=== PATIENT | male | born 1970 | race Caucasian/White ===

== ENCOUNTER → 2016-09-01 | Outpatient (REF) | payer OTHER ==
[~2016-09-01] MED LIST: /CELE20CA; /QUIN10TA OR; ACET500C OR; CARA1TAB2 PO; CARV12.5 PO; CIPR500T89 PO; COLA100C2; COLA100C2 OR; FELDENE OR; GABA300T OR; HYDR1CRE63 TOP; LIDEX TOP; NABU500T OR; NORCOTAB PO; PRIL20CA OR; PROCTOFOAM PR; PROP60TA OR; PROT1TAB2 PO; RANI15TA PO; TRAM50TA2 OR; TYLENOL ARTHRITIS; VICT18IN SC; ZANA2CAP PO; [UNRECOGNIZED DRUG - OTHER]; [UNRECOGNIZED DRUG - OTHER] TOP
== END ==
LOC: CANPREREF → M SFHCPLAZ 09:18
PROVIDERS: ATTEND Family Medicine
DX: Z53.8 Procedure and treatment not carried out for other reasons (principal); M45.9 Ankylosing spondylitis of unspecified sites in spine; E11.9 Type 2 diabetes mellitus without complications; E78.5 Hyperlipidemia, unspecified

== ENCOUNTER → 2016-10-15 | Outpatient (REF) | payer OTHER ==
[~2016-10-15] MED LIST changes: -CARA1TAB2 PO; +CARA1TAB6 PO; +CIPR-249 PO; -CIPR500T89 PO
[2016-10-15 12:15] LABS: CHOLESTEROL LEVEL 187 MG/DL (<200); TRIGLYCERIDES LEVEL 62 MG/DL (<150)
[2016-10-15 12:22] LABS: BASO % 0.4 % (0.0-1.0); EOS # 0.1 K/mm3 (0.0-0.50); EOS % 0.9 % (0.0-3.0); LARGE UNSTAINED CELL # 0.1 K/mm3 (0.0-0.4); LARGE UNSTAINED CELL % 1.7 % (0.0-4.0); LYMPH % 29.4 % (24.0-44.0); MEAN CORPUSCULAR HEMOGLOBIN 31.9 pg (27.0-33.0); MEAN CORPUSCULAR HGB CONC 35.5 g/dl (32.0-36.5); MEAN CORPUSCULAR VOLUME 89.9 fl (80.0-96.0); MONO # 0.3 K/mm3 (0.0-0.8); MONO % 3.7 % (0.0-5.0); NEUTROPHILS # 4.3 K/mm3 (1.8-7.7); NEUTROPHILS % 63.9 % (36.0-66.0); PLATELET COUNT, AUTOMATED 256 k/mm3 (150-450); RED CELL DISTRIBUTION WIDTH 12.3 % (11.5-14.5); WHITE BLOOD COUNT 6.7 K/mm3 (4.0-10.0)
[2016-10-15 13:15] LABS: ERYTHROCYTE SEDIMENTATION RATE 3 mm/hr (0-15)
== END ==
LOC: M LABDRAW1 10:51
PROVIDERS: ATTEND Family Medicine
DX: E78.5 Hyperlipidemia, unspecified (principal); E11.9 Type 2 diabetes mellitus without complications; M45.9 Ankylosing spondylitis of unspecified sites in spine

== ENCOUNTER → 2017-06-22 | Outpatient (REF) | payer OTHER ==
[2017-06-22 12:05] LABS: ALBUMIN 3.9 GM/DL (3.2-5.2); ALKALINE PHOSPHATASE 47 U/L (45-117); ALT/SGPT 46 U/L (12-78); ANION GAP 5 MEQ/L (8-16); AST/SGOT 15 U/L (7-37); BILIRUBIN,TOTAL 0.4 MG/DL (0.2-1.0); BLOOD UREA NITROGEN 12 MG/DL (7-18); C REACTIVE PROTEIN QUANTITATIV < 0.30 MG/DL (0.00-0.30); CALCIUM LEVEL 8.7 MG/DL (8.5-10.1); CARBON DIOXIDE LEVEL 31 MEQ/L (21-32); CHLORIDE LEVEL 106 MEQ/L (98-107); CHOLESTEROL LEVEL 157 MG/DL (<200); CHOLESTEROL RISK RATIO 3.829 (<5); CPK CREATINE PHOSPHOKINASE 79 U/L (39-308); CREATININE FOR GFR 0.77 MG/DL (0.70-1.30); FREE T4 1.05 NG/DL (0.76-1.46); GLOMERULAR FILTRATION RATE > 60.0 (>60); GLUCOSE, FASTING 106 MG/DL (70-100); HDL CHOLESTEROL 41 MG/DL (>40); LDL CHOLESTEROL 101.6 MG/DL (<100); NON-HDL-C 116 MG/DL; POTASSIUM SERUM 4.7 MEQ/L (3.5-5.1); SODIUM LEVEL 142 MEQ/L (136-145); THYROID STIMULATING HORMONE 0.985 uIU/ML (0.358-3.740); TOTAL PROTEIN 6.9 GM/DL (6.4-8.2); TRIGLYCERIDES LEVEL 72 MG/DL (<150)
[2017-06-22 12:21] LABS: TOTAL 25(OH) VITAMIN D 21.9 NG/ML (30.0-100.0)
[2017-06-22 12:22] LABS: PTH INTACT 28.9 PG/ML (18.5-88.0)
[2017-06-22 12:40] LABS: ESTIMATED AVERAGE GLUCOSE 97 MG/DL (60-110)
== END ==
LOC: M LABDRAW1 08:39
DX: E78.5 Hyperlipidemia, unspecified (principal); E11.9 Type 2 diabetes mellitus without complications; M45.9 Ankylosing spondylitis of unspecified sites in spine

== ENCOUNTER → 2017-09-15 | Outpatient (REF) | payer OTHER ==
[2017-09-15 13:06] LABS: TOTAL 25(OH) VITAMIN D 47.2 NG/ML (30.0-100.0)
== END ==
LOC: M LABDRAW1 12:35
DX: M45.9 Ankylosing spondylitis of unspecified sites in spine (principal)
CPT/HCPCS: 82306

== ENCOUNTER → 2018-02-22 | Outpatient (REF) | payer OTHER ==
[2018-02-22 13:27] LABS: APPEARANCE, URINE CLEAR (CLEAR); BACTERIA, URINE AUTO NEGATIVE (NEGATIVE); BILIRUBIN, URINE AUTO NEGATIVE (NEGATIVE); BLOOD, URINE BLOOD NEGATIVE (NEGATIVE); COLOR, URINE YELLOW (YELLOW); GLUCOSE, URINE (UA) AUTO NEGATIVE (NEGATIVE); KETONE, URINE AUTO NEGATIVE (NEGATIVE); LEUKOCYTE ESTERASE, URINE AUTO NEGATIVE (NEGATIVE); NITRITE, URINE AUTO NEGATIVE (NEGATIVE); PROTEIN, URINE AUTO NEGATIVE (NEGATIVE); RBC, URINE AUTO 0 /HPF (0-3); SQUAMOUS EPITHELIAL CELL UR AU 0 /HPF (0-6); UROBILINOGEN, URINE AUTO 0.2 mg/dL (0.0-2.0); WBC, URINE AUTO 0 /HPF (0-3)
[2018-02-22 13:30] LABS: BASO % 0.3 % (0.0-1.0); EOS # 0.1 10^3/uL (0.0-0.50); EOS % 1.4 % (0.0-3.0); HEMATOCRIT 42.8 % (42.0-52.0); HEMOGLOBIN 14.6 g/dl (13.5-17.5); IMMATURE GRANULOCYTE % 0.5 % (0-3.0); LYMPH # 1.9 10^3/uL (1.5-4.5); LYMPH % 30.3 % (24.0-44.0); MEAN CORPUSCULAR HEMOGLOBIN 31.1 pg (27.0-33.0); MEAN CORPUSCULAR HGB CONC 34.1 g/dl (32.0-36.5); MEAN CORPUSCULAR VOLUME 91.3 fl (80.0-96.0); MONO # 0.3 10^3/uL (0.0-0.8); MONO % 5.5 % (0.0-5.0); NEUTROPHILS # 3.9 10^3/uL (1.8-7.7); PLATELET COUNT, AUTOMATED 237 10^3/uL (150-450); RED BLOOD COUNT 4.69 10^6/uL (4.30-6.10); RED CELL DISTRIBUTION WIDTH 12.3 % (11.5-14.5); WHITE BLOOD COUNT 6.2 10^3/uL (4.0-10.0)
[2018-02-22 13:50] LABS: ERYTHROCYTE SEDIMENTATION RATE 3 mm/hr (0-15)
[2018-02-22 13:56] LABS: ALBUMIN 3.6 GM/DL (3.2-5.2); ALBUMIN/GLOBULIN RATIO 1.29 (1.00-1.93); ALKALINE PHOSPHATASE 45 U/L (45-117); ALT/SGPT 73 U/L (12-78); ANION GAP 4 MEQ/L (8-16); AST/SGOT 30 U/L (7-37); BILIRUBIN,TOTAL 0.5 MG/DL (0.2-1.0); BLOOD UREA NITROGEN 11 MG/DL (7-18); C REACTIVE PROTEIN QUANTITATIV < 0.30 MG/DL (0.00-0.30); CALCIUM LEVEL 8.2 MG/DL (8.5-10.1); CARBON DIOXIDE LEVEL 31 MEQ/L (21-32); CHLORIDE LEVEL 109 MEQ/L (98-107); CREATININE FOR GFR 0.76 MG/DL (0.70-1.30); GLOMERULAR FILTRATION RATE > 60.0 (>60); GLUCOSE, FASTING 98 MG/DL (70-100); MAGNESIUM LEVEL 2.2 MG/DL (1.8-2.4); POTASSIUM SERUM 4.5 MEQ/L (3.5-5.1); SODIUM LEVEL 144 MEQ/L (136-145); TOTAL PROTEIN 6.4 GM/DL (6.4-8.2)
[2018-02-22 14:44] LABS: MAU/CREAT RATIO 4.7 MCG/MG (0.0-30.0)
[2018-02-22 17:55] LABS: ESTIMATED AVERAGE GLUCOSE 105 MG/DL (60-110); HEMOGLOBIN A1c 5.3 %
[2018-02-23 10:57] LABS: H PYLORI SERUM QUANT IgG ABY 0.37 (0.00-0.79)
[2018-02-26 00:07] LABS: QuantiFERON-TB Gold Plus Negative (Negative)
== END ==
LOC: M LABDRAW1 12:03
DX: E11.9 Type 2 diabetes mellitus without complications (principal); M45.9 Ankylosing spondylitis of unspecified sites in spine; I10 Essential (primary) hypertension; K27.9 Peptic ulcer, site unspecified, unspecified as acute or chronic, without hemorrhage or perforation

== ENCOUNTER → 2018-09-06 | Outpatient (REF) | payer OTHER ==
[~2018-09-06] MED LIST changes: -/CELE20CA; -/QUIN10TA OR; +ACCU1TAB OR; +CELE1CAP4; +HYDR-3715 PO; -NORCOTAB PO
[2018-09-06 13:13] LABS: BASO # 0.1 10^3/uL (0.0-0.2); BASO % 0.6 % (0.0-1.0); EOS # 0.3 10^3/uL (0.0-0.50); EOS % 2.5 % (0.0-3.0); HEMATOCRIT 45.6 % (42.0-52.0); HEMOGLOBIN 15.2 g/dl (13.5-17.5); LYMPH # 1.9 10^3/uL (1.5-4.5); LYMPH % 18.7 % (24.0-44.0); MEAN CORPUSCULAR HEMOGLOBIN 31.1 pg (27.0-33.0); MEAN CORPUSCULAR HGB CONC 33.3 g/dl (32.0-36.5); MEAN CORPUSCULAR VOLUME 93.4 fl (80.0-96.0); MONO # 0.8 10^3/uL (0.0-0.8); MONO % 7.6 % (0.0-5.0); NEUTROPHILS # 6.9 10^3/uL (1.8-7.7); NEUTROPHILS % 70.2 % (36.0-66.0); PLATELET COUNT, AUTOMATED 231 10^3/uL (150-450); RED BLOOD COUNT 4.88 10^6/uL (4.30-6.10); WHITE BLOOD COUNT 9.9 10^3/uL (4.0-10.0)
[2018-09-06 14:15] LABS: ERYTHROCYTE SEDIMENTATION RATE 15 mm/hr (0-15)
[2018-09-06 16:31] LABS: HEMOGLOBIN A1c 5.6 %
[2018-09-06 16:49] LABS: ALT/SGPT 110 U/L (12-78); BILIRUBIN,TOTAL 0.5 MG/DL (0.2-1.0); BLOOD UREA NITROGEN 13 MG/DL (7-18); C REACTIVE PROTEIN QUANTITATIV 2.33 MG/DL (0.00-0.30); CARBON DIOXIDE LEVEL 27 MEQ/L (21-32); CHLORIDE LEVEL 108 MEQ/L (98-107); CHOLESTEROL LEVEL 160 MG/DL (<200); CREATININE FOR GFR 0.81 MG/DL (0.70-1.30); GLOMERULAR FILTRATION RATE > 60.0 (>60); GLUCOSE, FASTING 112 MG/DL (70-100); HDL CHOLESTEROL 38 MG/DL (>40); LDL CHOLESTEROL 100 MG/DL (<100); NON-HDL-C 122 MG/DL; POTASSIUM SERUM 4.8 MEQ/L (3.5-5.1); SODIUM LEVEL 143 MEQ/L (136-145); TOTAL 25(OH) VITAMIN D 16.8 NG/ML (30.0-100.0); TOTAL PROTEIN 7.2 GM/DL (6.4-8.2); TRIGLYCERIDES LEVEL 108 MG/DL (<150)
== END ==
LOC: M LABDRAW1 11:47
PROVIDERS: ATTEND Family Medicine
DX: E78.5 Hyperlipidemia, unspecified (principal); M45.9 Ankylosing spondylitis of unspecified sites in spine; E55.9 Vitamin D deficiency, unspecified

== ENCOUNTER → 2018-10-13 | Outpatient (CLI) | payer BC, OTHER ==
--- NOTE | 2018-10-13 07:39 | REP ---
Clinical: Hepatic steatosis. Technique: Real time kilgore scale ultrasound examination using curved array transducer. Findings: The liver is diffusely increased echogenicity with decreased through transmission suggesting fatty infiltration. No focal hepatic lesion identified. The pancreas is incompletely evaluated due to interposed bowel gas but visualized portions appear normal. The gallbladder is absent and consistent with a history of cholecystectomy. No biliary ductal dilatation is appreciated and the common bile duct measures 6.1 mm diameter. The right kidney is normal in reniform shape without hydronephrosis, nephrolithiasis, cystic or renal mass lesion and measures 11.4 x 6.0 x 5.8 cm. No ascites. Impression: 1. Hepatic steatosis without focal hepatic lesion identified. 2. Evidence of prior cholecystectomy. Electronically Signed by Ervin Crowley MD 10/13/2018 07:30 A
== END ==
LOC: M RAD 05:57
PROVIDERS: ATTEND Family Medicine
DX: K76.0 Fatty (change of) liver, not elsewhere classified (principal)

== ENCOUNTER → 2019-05-16 | Outpatient (CLI) | payer BC, OTHER ==
[2019-05-16 20:22] LABS: BASO % 0.5 % (0.0-1.0); EOS # 0.2 10^3/uL (0.0-0.5); EOS % 2.2 % (0.0-3.0); HEMATOCRIT 45.3 % (42.0-52.0); HEMOGLOBIN 15.2 g/dl (13.5-17.5); LYMPH # 2.7 10^3/uL (1.5-5.0); LYMPH % 33.9 % (24.0-44.0); MEAN CORPUSCULAR HEMOGLOBIN 30.5 pg (27.0-33.0); MEAN CORPUSCULAR HGB CONC 33.6 g/dl (32.0-36.5); MEAN CORPUSCULAR VOLUME 90.8 fl (80.0-96.0); MONO # 0.6 10^3/uL (0.0-0.8); MONO % 6.9 % (0.0-5.0); NEUTROPHILS # 4.5 10^3/uL (1.5-8.5); NEUTROPHILS % 56.3 % (36.0-66.0); PLATELET COUNT, AUTOMATED 263 10^3/uL (150-450); RED BLOOD COUNT 4.99 10^6/uL (4.30-6.10)
[2019-05-16 20:34] LABS: INR 1.1; PROTHROMBIN TIME 13.9 SECONDS (11.8-14.0)
[2019-05-16 20:37] LABS: C REACTIVE PROTEIN QUANTITATIV < 0.30 MG/DL (0.00-0.30); CHOLESTEROL LEVEL 158 MG/DL (<200); CHOLESTEROL RISK RATIO 4.787 (<5); FREE T4 1.12 NG/DL (0.76-1.46); HDL CHOLESTEROL 33 MG/DL (>40); LDL CHOLESTEROL 103 MG/DL (<100); NON-HDL-C 125 MG/DL; TRIGLYCERIDES LEVEL 110 MG/DL (<150)
[2019-05-16 20:47] LABS: CREATININE,RANDOM URINE 72.7 MG/DL; HEMOGLOBIN A1c 5.7 %; TOTAL PROTEIN,RANDOM URINE 8.4 MG/DL (0.0-12.0)
[2019-05-16 20:54] LABS: ERYTHROCYTE SEDIMENTATION RATE 6 mm/hr (0-15)
== END ==
LOC: M WUC 15:45
PROVIDERS: ATTEND Family Medicine
DX: E11.9 Type 2 diabetes mellitus without complications (principal); M45.9 Ankylosing spondylitis of unspecified sites in spine; K76.0 Fatty (change of) liver, not elsewhere classified

== ENCOUNTER → 2019-07-21 | Outpatient (REF) | payer BC, OTHER ==
[2019-07-21 15:50] LABS: BASO # 0.1 10^3/uL (0.0-0.2); BASO % 0.6 % (0.0-1.0); EOS # 0.2 10^3/uL (0.0-0.5); EOS % 1.7 % (0.0-3.0); HEMATOCRIT 43.9 % (42.0-52.0); HEMOGLOBIN 15.3 g/dl (13.5-17.5); LYMPH # 2.2 10^3/uL (1.5-5.0); LYMPH % 24.1 % (24.0-44.0); MEAN CORPUSCULAR HEMOGLOBIN 31.8 pg (27.0-33.0); MEAN CORPUSCULAR HGB CONC 34.9 g/dl (32.0-36.5); MEAN CORPUSCULAR VOLUME 91.3 fl (80.0-96.0); MONO # 0.5 10^3/uL (0.0-0.8); MONO % 5.7 % (0.0-5.0); NEUTROPHILS # 6.1 10^3/uL (1.5-8.5); NEUTROPHILS % 67.5 % (36.0-66.0); PLATELET COUNT, AUTOMATED 274 10^3/uL (150-450); RED BLOOD COUNT 4.81 10^6/uL (4.30-6.10)
[2019-07-21 16:39] LABS: ERYTHROCYTE SEDIMENTATION RATE 5 mm/hr (0-15)
== END ==
LOC: M LABDRAW1 13:37
PROVIDERS: ATTEND Family Medicine
DX: M45.9 Ankylosing spondylitis of unspecified sites in spine (principal)

== ENCOUNTER → 2020-02-11 | Outpatient (CLI) | payer BC, OTHER ==
[~2020-02-11] MED LIST changes: +COSE1INJ3; +LATA0.0015; +METF750T36 PO; +QUIN10TA32; +TRUL0.5I
== END ==
LOC: M LABSMTC 08:19
PROVIDERS: ATTEND Anesthesiology
DX: Z01.812 Encounter for preprocedural laboratory examination (principal); Z20.828 Contact with and (suspected) exposure to other viral communicable diseases
CPT/HCPCS: C9803; U0003

== ENCOUNTER 2020-02-16 10:22 | Day surgery (SDC) | payer BC, OTHER ==
[~2020-02-16] VITALS: Ht 177.8 cm; Wt 93.0 kg
[~2020-02-16 10:22] MED LIST changes: +POVIDONE-IODINE 5% OPHTH PREP SOL 30ML As Ordered ONE
[2020-02-16] MEDS ORDERED: PROPARACAINE 0.5% OPHTH SOL 15ML As Ordered ONE (11:50)
[2020-02-16] MEDS ORDERED: MIDAZOLAM INJ 2MG/2ML VIAL (J2250 PER 1MG) As Ordered ONE (12:11)
[2020-02-16] MEDS ORDERED: fentaNYL 100 MCG/2 ML INJECTION (J3010) As Ordered ONE (12:11)
[2020-02-16 13:15] VITALS: BP 30/77
== END 2020-02-16 13:21 | disposition home or self-care (01) ==
LOC: M SDC 10:22
PROVIDERS: ATTEND Ophthalmology
DX: H17.11 Central corneal opacity, right eye (principal); I10 Essential (primary) hypertension; K21.9 Gastro-esophageal reflux disease without esophagitis; Z79.899 Other long term (current) drug therapy; R73.03 Prediabetes; Z79.84 Long term (current) use of oral hypoglycemic drugs
CPT/HCPCS: 65435; J2250; J3010

== ENCOUNTER → 2020-03-09 | Outpatient (REF) | payer OTHER ==
[~2020-03-09] MED LIST changes: -POVIDONE-IODINE 5% OPHTH PREP SOL 30ML As Ordered ONE
[2020-03-09 14:22] LABS: HEMOGLOBIN A1c 5.6 %
[2020-03-09 14:34] LABS: ALBUMIN 4.1 GM/DL (3.2-5.2); ALT/SGPT 57 U/L (12-78); BILIRUBIN,TOTAL 0.4 MG/DL (0.2-1.0); BLOOD UREA NITROGEN 13 MG/DL (7-18); CALCIUM LEVEL 9.3 MG/DL (8.5-10.1); CARBON DIOXIDE LEVEL 30 MEQ/L (21-32); CHLORIDE LEVEL 107 MEQ/L (98-107); CHOLESTEROL LEVEL 177 MG/DL (<200); CHOLESTEROL RISK RATIO 4.317 (<5); GLOMERULAR FILTRATION RATE > 60.0 (>60); GLUCOSE, FASTING 108 MG/DL (70-100); HDL CHOLESTEROL 41 MG/DL (>40); LDL CHOLESTEROL 109 MG/DL (<100); MAGNESIUM LEVEL 2.3 MG/DL (1.8-2.4); NON-HDL-C 136 MG/DL; POTASSIUM SERUM 4.4 MEQ/L (3.5-5.1); SODIUM LEVEL 141 MEQ/L (136-145); TOTAL PROTEIN 7.4 GM/DL (6.4-8.2); TRIGLYCERIDES LEVEL 135 MG/DL (<150)
[2020-03-09 14:41] LABS: PTH INTACT 22.1 PG/ML (18.5-88.0); TOTAL 25(OH) VITAMIN D 27.7 NG/ML (30.0-100.0)
[2020-03-09 14:44] LABS: CREATININE, URINE 55.7 MG/DL; MALB URINE SIEMENS < 5.0 MG/L; MAU/CREAT RATIO 8.9 MCG/MG (0.0-30.0)
[2020-03-09 14:52] LABS: HEPATITIS B SURFACE ANTIGEN NEGATIVE (NEGATIVE)
[2020-03-09 15:20] LABS: HEPATITIS C VIRUS ABY INDEX < 0.0 INDEX (<0.8)
== END ==
LOC: M SFHCPLAZ 09:54
PROVIDERS: ATTEND Nurse Practitioner Family
DX: E11.9 Type 2 diabetes mellitus without complications (principal); M45.9 Ankylosing spondylitis of unspecified sites in spine; E78.5 Hyperlipidemia, unspecified; I10 Essential (primary) hypertension; E55.9 Vitamin D deficiency, unspecified

== ENCOUNTER → 2020-05-31 | Outpatient (CLI) | payer OTHER ==
[~2020-05-31] MED LIST changes: +ISOVUE-300 61% 50ML VIAL As Ordered ONE; +LIDOCAINE 1% MDV 20ML VIAL As Ordered ONE; +TRIAMCINOLONE ACETONIDE SUSP 40 MG/ML VIAL (J3301) As Ordered ONE
--- NOTE | 2020-05-31 16:51 | REP ---
INDICATION: IMPINGEMENT SYNDROME RIGHT SHOULDER. COMPARISON: None TECHNIQUE: The procedure was performed by Rosy Cardoza [facility], under the direct supervision of Dr. Carr. The benefits and risks of the procedure were explained to the patient, and an informed consent was obtained. Directly prior to the start of the procedure, a formal time-out was completed in the procedure room. The right glenohumeral joint space was localized using fluoroscopic guidance. The skin was prepped and draped in a sterile fashion. Approximately 5 mL of 1% Lidocaine 10 mg/ml was used as a local anesthetic. Using fluoroscopic guidance, a #22 gauge spinal needle was inserted and advanced into the right glenohumeral joint space. Approximately 1 mL of Isovue 300 was injected to verify placement. Six mL of a solution containing 5 mL 1% lidocaine 10 mg/ml and 1 mL Kenalog 40 milligrams/milliliter was injected into the joint space. The needle was removed and hemostasis was achieved. FINDINGS: The patient tolerated the procedure well and there were no immediate complications. IMPRESSION: 1. Right shoulder inter articular pain injection under fluoroscopic guidance. 0.1 minutes of fluoroscopy time was utilized for this procedure. Some fluoroscopic images are performed with last image hold technology. These images require no additional radiation. <Electronically signed by Rosy Cardoza > 05/31/20 0094 <Electronically signed by Bill Carr > 05/31/20 [id number]
== END ==
LOC: M RADPRO 13:32
PROVIDERS: ATTEND Physician Assistant
DX: M75.41 Impingement syndrome of right shoulder (principal)
CPT/HCPCS: 20610; 77002; J3301; Q9967

== ENCOUNTER → 2020-07-16 | Outpatient (REF) | payer OTHER ==
[~2020-07-16] MED LIST changes: -ISOVUE-300 61% 50ML VIAL As Ordered ONE; -LIDOCAINE 1% MDV 20ML VIAL As Ordered ONE; -TRIAMCINOLONE ACETONIDE SUSP 40 MG/ML VIAL (J3301) As Ordered ONE
[2020-07-16 11:05] LABS: BASO % 0.3 % (0.0-1.0); EOS # 0.1 10^3/uL (0.0-0.5); EOS % 1.1 % (0.0-3.0); HEMATOCRIT 43.2 % (42.0-52.0); HEMOGLOBIN 14.9 g/dl (13.5-17.5); LYMPH # 2.3 10^3/uL (1.5-5.0); LYMPH % 26.5 % (24.0-44.0); MEAN CORPUSCULAR HEMOGLOBIN 31.6 pg (27.0-33.0); MEAN CORPUSCULAR HGB CONC 34.5 g/dl (32.0-36.5); MEAN CORPUSCULAR VOLUME 91.7 fl (80.0-96.0); MONO # 0.5 10^3/uL (0.0-0.8); MONO % 5.7 % (2.0-8.0); NEUTROPHILS # 5.8 10^3/uL (1.5-8.5); NEUTROPHILS % 65.9 % (36.0-66.0); PLATELET COUNT, AUTOMATED 253 10^3/uL (150-450); RED BLOOD COUNT 4.71 10^6/uL (4.30-6.10); WHITE BLOOD COUNT 8.8 10^3/uL (4.0-10.0)
[2020-07-16 11:24] LABS: ERYTHROCYTE SEDIMENTATION RATE 8 mm/hr (0-20)
[2020-07-16 11:26] LABS: HEMOGLOBIN A1c 5.8 %
[2020-07-16 11:31] LABS: ALT/SGPT 77 U/L (12-78); BILIRUBIN,TOTAL 0.4 MG/DL (0.2-1.0); BLOOD UREA NITROGEN 19 MG/DL (7-18); CALCIUM LEVEL 8.8 MG/DL (8.5-10.1); CARBON DIOXIDE LEVEL 30 MEQ/L (21-32); CHLORIDE LEVEL 108 MEQ/L (98-107); CREATININE FOR GFR 0.74 MG/DL (0.70-1.30); GLOMERULAR FILTRATION RATE > 60.0 (>56); GLUCOSE, FASTING 113 MG/DL (70-100); POTASSIUM SERUM 4.7 MEQ/L (3.5-5.1); SODIUM LEVEL 141 MEQ/L (136-145); TOTAL PROTEIN 7.1 GM/DL (6.4-8.2)
== END ==
LOC: M SFHCPLAZ 08:58
PROVIDERS: ATTEND Family Medicine
DX: M45.9 Ankylosing spondylitis of unspecified sites in spine (principal); E11.9 Type 2 diabetes mellitus without complications; K76.0 Fatty (change of) liver, not elsewhere classified; Z12.5 Encounter for screening for malignant neoplasm of prostate
CPT/HCPCS: 36415; 80053; 82172; 83010; 83036; 83883; 85025; 85652; 86140; 86480; G0103

== ENCOUNTER → 2020-08-06 | Outpatient (CLI) | payer OTHER ==
--- NOTE | 2020-08-07 20:24 | ECGEPIP ---
[facility] Test Date: 2020-08-06 Pat Name: JESSI COLEY Department: Room: - Gender: Male Press Tender: petr : 1970 Requested By: Donald Lindsey Order Number: [id number] Reading MD: Jay Oliva Measurements Intervals [place] Rate: 76 P: 32 WA: 146 QRS: 40 QRSD: 86 T: 64 QT: 392 QTc: 441 Interpretive Statements Normal sinus rhythm Inferior infarct , age undetermined, CANNOT R/O NO PRIOR Electronically Signed on 08-07-2020 20:23:52 EDT by Jay Oliva
== END ==
LOC: M EKG 09:08
PROVIDERS: ATTEND Orthopaedic Surgery
DX: Z01.810 Encounter for preprocedural cardiovascular examination (principal)

== ENCOUNTER → 2020-09-03 | Outpatient (REF) | payer OTHER ==
[2020-09-03 15:40] LABS: BASO % 0.3 % (0.0-1.0); EOS # 0.1 10^3/uL (0.0-0.5); HEMATOCRIT 48.6 % (42.0-52.0); HEMOGLOBIN 16.3 g/dl (13.5-17.5); LYMPH # 2.3 10^3/uL (1.5-5.0); LYMPH % 24.2 % (24.0-44.0); MEAN CORPUSCULAR HEMOGLOBIN 30.9 pg (27.0-33.0); MEAN CORPUSCULAR HGB CONC 33.5 g/dl (32.0-36.5); MEAN CORPUSCULAR VOLUME 92.2 fl (80.0-96.0); MONO # 0.5 10^3/uL (0.0-0.8); MONO % 5.3 % (2.0-8.0); NEUTROPHILS # 6.6 10^3/uL (1.5-8.5); NEUTROPHILS % 68.8 % (36.0-66.0); PLATELET COUNT, AUTOMATED 336 10^3/uL (150-450); RED BLOOD COUNT 5.27 10^6/uL (4.30-6.10); WHITE BLOOD COUNT 9.6 10^3/uL (4.0-10.0)
[2020-09-03 16:03] LABS: ALBUMIN 4.3 GM/DL (3.2-5.2); ALT/SGPT 44 U/L (12-78); BILIRUBIN,TOTAL 0.8 MG/DL (0.2-1.0); BLOOD UREA NITROGEN 15 MG/DL (7-18); CALCIUM LEVEL 9.4 MG/DL (8.5-10.1); CARBON DIOXIDE LEVEL 32 MEQ/L (21-32); CHLORIDE LEVEL 105 MEQ/L (98-107); CREATININE FOR GFR 0.81 MG/DL (0.70-1.30); GLOMERULAR FILTRATION RATE > 60.0 (>56); GLUCOSE, FASTING 109 MG/DL (70-100); LIPASE 107 U/L (73-393); POTASSIUM SERUM 4.4 MEQ/L (3.5-5.1); SODIUM LEVEL 140 MEQ/L (136-145); TOTAL PROTEIN 7.5 GM/DL (6.4-8.2)
== END ==
LOC: M SFHCPLAZ 12:42
PROVIDERS: ATTEND Physician Assistant
DX: R10.13 Epigastric pain (principal); K27.9 Peptic ulcer, site unspecified, unspecified as acute or chronic, without hemorrhage or perforation; K58.9 Irritable bowel syndrome, unspecified

== ENCOUNTER → 2020-10-10 | Outpatient (CLI) | payer BC, OTHER ==
[~2020-10-10] MED LIST changes: +E-Z-GAS II EFFERVESCENT PACKET (SODIUM BICARB./CITRIC ACID/SIMETHICONE) As Ordered ONE; +E-Z-HD 98% w/w 340GM SUSP BTL As Ordered ONE; +E-Z-PAQUE 96% w/w SUSP 176GM BTL As Ordered ONE; +[UNRECOGNIZED DRUG - CODE] TOP; -[UNRECOGNIZED DRUG - OTHER] TOP
--- NOTE | 2020-10-10 16:46 | REP ---
INDICATION: EPIGASTRIC PAIN. COMPARISON: None TECHNIQUE: This procedure was performed by Rosy Cardoza [facility], under the direct supervision of Dr. Mena. Images were reviewed with Dr. Mena prior to dictation. Liquid barium and gas producing crystals were given in the erect position, as well as liquid barium in the prone oblique position in order to perform a double contrast upper GI examination. Additionally liquid barium was given at the end of the examination in order to perform a small-bowel follow-through. 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 The intestinal gas pattern is unremarkable. The oral and pharyngeal stages of deglutition were unremarkable. Esophageal transport is prompt and efficient and there is no evidence of esophagitis, stricture, or mucosal ring. There is evidence of a small hiatal hernia. There was no gastroesophageal reflux noted . The stomach guallpa are normally outlined. The rugal folds are smooth and regular. There is no gastritis, neoplasm, or ulcerative disease. The duodenal guallpa are normally outlined. The mucosal folds are smooth and regular. There is no duodenitis, peptic ulcer disease or neoplasm. The visualized portion of the proximal small bowel appears normal in course and caliber. There are 2 diverticula of the descending duodenal. The barium column was followed through the small bowel to the level of the terminal ileum. Small bowel transit time is approximately 20 minutes. During fluoroscopy gentle palpation shows all loops are freely movable and pliable. There is no fixed angulated loops. The small bowel mucosal pattern is normal in course and caliber. There is no transition to suggest a partial small bowel obstruction. Spot filming of the terminal ileum shows it to be unremarkable. The appendix is visualized. IMPRESSION: 1. Small hiatal hernia. 2. Two diverticula of the descending duodenum. 3. Small bowel transit time of 20 minutes. 1.1 minutes of fluoroscopy time was utilized for this procedure. Some fluoroscopic images are performed with last image hold technology. These images require no additional radiation. <Electronically signed by Rosy Cardoza > 10/10/20 1630 <Electronically signed by Kobi Mena > 10/10/20 1646
== END ==
LOC: M RAD 08:06
PROVIDERS: ATTEND Physician Assistant
DX: K44.9 Diaphragmatic hernia without obstruction or gangrene (principal); K57.30 Diverticulosis of large intestine without perforation or abscess without bleeding; R10.13 Epigastric pain

== ENCOUNTER → 2021-01-01 | Outpatient (CLI) | payer BC, OTHER ==
[~2021-01-01] MED LIST changes: -E-Z-GAS II EFFERVESCENT PACKET (SODIUM BICARB./CITRIC ACID/SIMETHICONE) As Ordered ONE; -E-Z-HD 98% w/w 340GM SUSP BTL As Ordered ONE; -E-Z-PAQUE 96% w/w SUSP 176GM BTL As Ordered ONE
[2021-01-01 18:00] LABS: FREE T4 1.14 NG/DL (0.76-1.46); THYROID STIMULATING HORMONE 0.95 uIU/ML (0.358-3.740)
== END ==
LOC: M LAB 16:19
PROVIDERS: ATTEND Physician Assistant Medical
DX: R19.8 Other specified symptoms and signs involving the digestive system and abdomen (principal)

== ENCOUNTER → 2021-01-03 | Outpatient (REF) | payer BC, OTHER | LOC: M LAB REF 09:56 | PROVIDERS: ATTEND Physician Assistant Medical | DX: R19.8 Other specified symptoms and signs involving the digestive system and abdomen (principal) ==

== ENCOUNTER → 2021-01-15 | Outpatient (CLI) | payer BC, OTHER ==
[2021-01-15 15:23] LABS: BASO % 0.4 % (0.0-1.0); EOS # 0.1 10^3/uL (0.0-0.5); EOS % 1.2 % (0.0-3.0); HEMATOCRIT 45.5 % (42.0-52.0); HEMOGLOBIN 15.8 g/dl (13.5-17.5); LYMPH # 2.4 10^3/uL (1.5-5.0); LYMPH % 29.4 % (24.0-44.0); MEAN CORPUSCULAR HEMOGLOBIN 31.3 pg (27.0-33.0); MEAN CORPUSCULAR HGB CONC 34.7 g/dl (32.0-36.5); MEAN CORPUSCULAR VOLUME 90.1 fl (80.0-96.0); MONO # 0.7 10^3/uL (0.0-0.8); MONO % 7.8 % (2.0-8.0); NEUTROPHILS # 5.1 10^3/uL (1.5-8.5); NEUTROPHILS % 60.7 % (36.0-66.0); PLATELET COUNT, AUTOMATED 251 10^3/uL (150-450); RED BLOOD COUNT 5.05 10^6/uL (4.30-6.10); WHITE BLOOD COUNT 8.3 10^3/uL (4.0-10.0)
[2021-01-15 15:28] LABS: HEMOGLOBIN A1c 6.4 %
[2021-01-15 15:45] LABS: ERYTHROCYTE SEDIMENTATION RATE 5 mm/hr (0-20)
[2021-01-15 15:48] LABS: ALBUMIN 4.1 GM/DL (3.2-5.2); ALT/SGPT 71 U/L (12-78); BILIRUBIN,TOTAL 0.6 MG/DL (0.2-1.0); BLOOD UREA NITROGEN 10 MG/DL (7-18); CALCIUM LEVEL 9.3 MG/DL (8.5-10.1); CARBON DIOXIDE LEVEL 30 MEQ/L (21-32); CHLORIDE LEVEL 105 MEQ/L (98-107); CHOLESTEROL LEVEL 198 MG/DL (<200); CREATININE FOR GFR 0.93 MG/DL (0.70-1.30); FERRITIN 100 NG/ML (26-388); GLOMERULAR FILTRATION RATE > 60.0 (>56); GLUCOSE, FASTING 110 MG/DL (70-100); HDL CHOLESTEROL 45 MG/DL (>40); LDL CHOLESTEROL 123 MG/DL (<100); NON-HDL-C 153 MG/DL; POTASSIUM SERUM 4.7 MEQ/L (3.5-5.1); SODIUM LEVEL 144 MEQ/L (136-145); TOTAL PROTEIN 7.4 GM/DL (6.4-8.2); TRIGLYCERIDES LEVEL 149 MG/DL (<150)
[2021-01-15 15:53] LABS: PTH INTACT 37.7 PG/ML (18.5-88.0); TOTAL 25(OH) VITAMIN D 27.3 NG/ML (30.0-100.0)
== END ==
LOC: M PLALAB 13:42
PROVIDERS: ATTEND Family Medicine
DX: E11.9 Type 2 diabetes mellitus without complications (principal)

== ENCOUNTER → 2021-02-13 | Outpatient (CLI) | payer BC, OTHER ==
--- NOTE | 2021-02-13 16:29 | REP ---
INDICATION: PAIN. COMPARISON: None. TECHNIQUE: Four views. FINDINGS: There are multiple smoothly marginated well corticated ossific densities distal to the ulnar styloid process consistent with chronic changes of the wrist. There is no evidence of an acute osseous abnormality seen involving the hand. The joint spaces are symmetric and relatively well maintained. There is no fracture or destructive osseous lesion. IMPRESSION: As above <Electronically signed by Khari Miguel > 02/13/21 0775
== END ==
LOC: M WUC 15:32
PROVIDERS: ATTEND Physician Assistant
DX: M79.641 Pain in right hand (principal)

== ENCOUNTER → 2021-02-25 | Outpatient (CLI) | payer BC, OTHER ==
[~2021-02-25] MED LIST changes: +CELE1CAP9 PO; +COSE1INJ SC; +ERGO500029 PO; -LATA0.0015; +LATA0.0015 OU; -QUIN10TA32; +QUIN10TA32 PO; +XALA0.007 OU
== END ==
LOC: M LABSMTC 09:39
PROVIDERS: ATTEND Anesthesiology
DX: Z01.812 Encounter for preprocedural laboratory examination (principal); Z20.822 Contact with and (suspected) exposure to COVID-19

== ENCOUNTER 2021-03-01 07:39 | Day surgery (SDC) | payer BC, OTHER ==
[~2021-03-01] VITALS: Ht 175.3 cm; Wt 96.8 kg
[~2021-03-01 07:39] MED LIST changes: +NS 1,000 ML IV ONE
--- OUTSIDE RECORDS SUMMARY | 2021-03-01 07:43 | CCD ---
Continuity of Care Document (CCD) Created on: 02/25/2021 Bill Heredia External Reference #: [id number] : 1970 Sex: Male Author Author Bill NOBLE P.A. 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 Pin Name Role Phone Raymond Du MD AUTM [phone] Raymond Du MD AUTM [phone] Problems Description No Information Available Social History Type Date Description Comments Sex Unknown ETOH Use Occasionally consumes alcohol Tobacco Use Start: Unknown End: Unknown Patient is a former smoker Smoking Status Reviewed: 06/19/20 Patient is a former smoker Allergies and adverse reactions Description No Known Drug Allergies Medications Active Medications SIG Qnty Indications Ordering Provide r Date Tylenol With Codeine #3 300-30mg T ablets 1-2 tabs po every 4-6 hours as needed pain after surgery(Please DO Not Fill Until 08/28/2020) 30tabs Donald Lindsey MD 08/28/2020 Metformin HCL 500mg Tablets take one tablet by mouth twice a day Unknown Carvedilol 12.5mg Tablets 1 by mouth twice a day Unknown Protonix 40mg Tablets DR 1 by mouth every day Unknown Accupril 10mg Tablets Unknown Tizanidine HCL 2mg Capsules 1 by mouth three times a day Unknown Gabapentin 100mg Capsules 1 by mouth twice a day Unknown Enbrel 25mg Solution Rec Unknown Trulicity 0.75mg/0.5 ML Solution Pen-Inject use once weekly Unknown Omeprazole 40mg Capsules DR Unknown Celebrex 50mg Capsules Unknown Immunizations Description No Information Available Vital Signs Date Vital Result Comment 08/31/2020 8:31am Body Temperature 97.7 F 08/23/2020 9:00am Body Temperature 96.4 F Results Description No Information Available Procedures Date Code Description Status 02/25/2021 71388 X-Ray Hand Three Views Completed 02/25/2021 91558 FX Phalanx Shaft/Prox/Mid Finger /Thumb W/O Manipulation Completed 02/25/2021 99094 Office/Outpatient Established Lo w MDM 20-29 Min Completed 01/07/2021 62749 Therapeutic Procedure, Each 15 M inutes Completed 01/07/2021 29740 Therapeutic Procedure, Each 15 M inutes Completed 01/01/2021 35812 Therapeutic Procedure, Each 15 M inutes Completed 01/01/2021 26388 Therapeutic Procedure, Each 15 M inutes Completed 01/01/2021 69849 Electrical Stimulati on Manual, Each 15 Min, Constant Attendance Completed 12/26/2020 79901 Therapeutic Procedure, Each 15 M inutes Completed 12/26/2020 01856 Electrical Stimulati on Manual, Each 15 Min, Constant Attendance Completed 12/26/2020 61993 Therapeutic Procedure, Each 15 M inutes Completed 12/19/2020 16383 Therapeutic Procedure, Each 15 M inutes Completed 12/19/2020 23442 Therapeutic Procedure, Each 15 M inutes Completed 12/19/2020 25519 Electrical Stimulati on Manual, Each 15 Min, Constant Attendance Completed 12/19/2020 54869 Hot Or Cold Packs Completed 12/13/2020 97970 Therapeutic Procedure, Each 15 M inutes Completed 12/13/2020 01228 Hot Or Cold Packs Completed 12/13/2020 02648 Electrical Stimulati on Manual, Each 15 Min, Constant Attendance Completed 12/13/2020 41238 Therapeutic Procedure, Each 15 M inutes Completed 12/11/2020 68746 Therapeutic Procedure, Each 15 M inutes Completed 12/11/2020 21862 Therapeutic Procedure, Each 15 M inutes Completed 12/11/2020 67841 Electrical Stimulati on Manual, Each 15 Min, Constant Attendance Completed 12/11/2020 12663 Hot Or Cold Packs Completed 12/07/2020 03012 Office/Outpatient Established Lo w MDM 20-29 Min Completed 12/04/2020 97385 Re-Eval Of PT Establ ished Plan Of Care 20Mins Face To Face PT/Fam Completed 12/04/2020 88279 Therapeutic Procedure, Each 15 M inutes Completed 12/04/2020 31010 Therapeutic Procedure, Each 15 M inutes Completed 12/03/2020 43325 Office/Outpatient Established Lo w MDM 20-29 Min Completed 10/15/2020 75248 Office/Outpatient Established Lo w MDM 20-29 Min Completed 10/10/2020 51166 Therapeutic Procedure, Each 15 M inutes Completed 10/10/2020 56621 Hot Or Cold Packs Completed 10/10/2020 14958 Electrical Stimulati on Manual, Each 15 Min, Constant Attendance Completed 10/10/2020 62832 Re-Eval Of PT Establ ished Plan Of Care 20Mins Face To Face PT/Fam Completed 10/10/2020 28412 Therapeutic Procedure, Each 15 M inutes Completed 10/05/2020 09781 Therapeutic Procedure, Each 15 M inutes Completed 10/05/2020 36872 Therapeutic Procedure, Each 15 M inutes Completed 10/05/2020 02037 Electrical Stimulati on Manual, Each 15 Min, Constant Attendance Completed 10/05/2020 62663 Hot Or Cold Packs Completed 10/02/2020 82532 Therapeutic Procedure, Each 15 M inutes Completed 10/02/2020 45485 Therapeutic Procedure, Each 15 M inutes Completed 10/02/2020 84810 Electrical Stimulati on Manual, Each 15 Min, Constant Attendance Completed 10/02/2020 46320 Hot Or Cold Packs Completed 09/27/2020 92564 Therapeutic Procedure, Each 15 M inutes Completed 09/27/2020 48627 Therapeutic Procedure, Each 15 M inutes Completed 09/27/2020 10604 Electrical Stimulati on Manual, Each 15 Min, Constant Attendance Completed 09/27/2020 93634 Hot Or Cold Packs Completed 09/24/2020 82329 Therapeutic Procedure, Each 15 M inutes Completed 09/24/2020 97444 Hot Or Cold Packs Completed 09/24/2020 52068 Electrical Stimulati on Manual, Each 15 Min, Constant Attendance Completed 09/24/2020 49465 Therapeutic Procedure, Each 15 M inutes Completed 09/20/2020 67098 Therapeutic Procedure, Each 15 M inutes Completed 09/20/2020 30480 Therapeutic Procedure, Each 15 M inutes Completed 09/20/2020 35136 Electrical Stimulati on Manual, Each 15 Min, Constant Attendance Completed 09/20/2020 90800 Hot Or Cold Packs Completed 09/14/2020 93428 Therapeutic Procedure, Each 15 M inutes Completed 09/14/2020 57852 Therapeutic Procedure, Each 15 M inutes Completed 09/14/2020 64832 Electrical Stimulati on Manual, Each 15 Min, Constant Attendance Completed 09/14/2020 48235 Hot Or Cold Packs Completed 09/10/2020 29103 Physical Therapy Eval - Low Comp lexity Completed 08/28/2020 75298 Arthroscopy Knee W/M eniscectomy Inc Chondroplasty (Med & Lateral) Completed Medical Devices Description No Information Available Encounters Type Date Location Provider Dx Diagnosis Office Visit 02/25/2021 10:[facility]a [facility] S62.646A Nondisp fx of proximal phalanx of right little finger, init Office Visit 12/07/2020 3:45p [facility] MD S83.241D Oth tear of medial meniscus, current injury, r knee, subs S83.281D Oth tear of lat mensc, curre nt injury, right knee, subs Office Visit 12/03/2020 4:45p [facility] M75.41 Impingement syndrome of right shoulder Office Visit 11/05/2020 4:00p [facility] MD S83.241D Oth tear of medial meniscus, current injury, r knee, subs S83.281D Oth tear of lat mensc, curre nt injury, right knee, subs Office Visit 10/15/2020 9:00a [facility] M75.41 Impingement syndrome of right shoulder Office Visit 10/05/2020 8:30a [facility] PA-C S83.241 D Oth tear of medial meniscus, current injury, r knee, subs S83.281D Oth tear of lat mensc, curre nt injury, right knee, subs Office Visit 09/07/2020 11:15a [facility] Shilpa Lindsey PA-C S83.241 D Oth tear of medial meniscus, current injury, r knee, subs S83.281D Oth tear of lat mensc, callume nt injury, right knee, subs Office Visit 08/31/2020 8:30a [facility] MD S83.241D Oth tear of medial meniscus, current injury, r knee, subs S83.281D Oth tear of lat mensc, curre nt injury, right knee, subs Assessments Date Code Description Provider 02/25/2021 S62.646A Nondisplaced fractur e of proximal phalanx of right little finger, initial encounter for closed fracture Humberto Noble, [place]. 01/07/2021 S83.241D Other tear of medial meniscus, current injury, right knee, subsequent encounter Stu Bergeron P.T. 01/07/2021 S83.281D Other tear of latera l meniscus, current injury, right knee, subsequent encounter Stu Bergeron P.T. 01/01/2021 S83.241D Other tear of medial meniscus, current injury, right knee, subsequent encounter Stu Bergeron P.T. 01/01/2021 S83.281D Other tear of latera l meniscus, current injury, right knee, subsequent encounter Stu Bergeron P.T. 12/26/2020 S83.241D Other tear of medial meniscus, current injury, right knee, subsequent encounter Stu Bergeron P.T. 12/26/2020 S83.281D Other tear of latera l meniscus, current injury, right knee, subsequent encounter Stu Bergeron P.T. 12/19/2020 S83.241D Other tear of medial meniscus, current injury, right knee, subsequent encounter Stu Bergeron P.T. 12/19/2020 S83.281D Other tear of latera l meniscus, current injury, right knee, subsequent encounter Stu Bergeron P.T. 12/13/2020 S83.241D Other tear of medial meniscus, current injury, right knee, subsequent encounter Stu Bergeron P.T. 12/13/2020 S83.281D Other tear of latera l meniscus, current injury, right knee, subsequent encounter Stu Bergeron P.T. 12/11/2020 S83.241D Other tear of medial meniscus, current injury, right knee, subsequent encounter Stu Bergeron P.T. 12/11/2020 S83.281D Other tear of latera l meniscus, current injury, right knee, subsequent encounter Stu Bergeron P.T. 12/07/2020 S83.241D Other tear of medial meniscus, current injury, right knee, subsequent encounter Donald Lindsey MD 12/07/2020 S83.281D Other tear of latera l meniscus, current injury, right knee, subsequent encounter Donald Lindsey MD 12/04/2020 S83.241D Other tear of medial meniscus, current injury, right knee, subsequent encounter Stu Bergeron P.T. 12/04/2020 S83.281D Other tear of latera l meniscus, current injury, right knee, subsequent encounter Stu Bergeron P.T. 12/03/2020 M75.41 Impingement syndrome of right juana Noble, P.A. 11/05/2020 S83.241D Other tear of medial meniscus, current injury, right knee, subsequent encounter Donald Lindsey MD 11/05/2020 S83.281D Other tear of latera l meniscus, current injury, right knee, subsequent encounter Donald Lindsey MD 10/15/2020 M75.41 Impingement syndrome of right juana Noble, P.A. 10/10/2020 S83.241D Other tear of medial meniscus, current injury, right knee, subsequent encounter Stu Bergeron P.T. 10/10/2020 S83.281D Other tear of latera l meniscus, current injury, right knee, subsequent encounter Stu Bergeron P.T. 10/05/2020 S83.241D Other tear of medial meniscus, current injury, right knee, subsequent encounter Олег Tony, PT, DPT 10/05/2020 S83.241D Other tear of medial meniscus, current injury, right knee, subsequent encounter Shilpa Lindsey PA-C 10/05/2020 S83.281D Other tear of latera l meniscus, current injury, right knee, subsequent encounter Олег Tony, PT, DPT 10/05/2020 S83.281D Other tear of latera l meniscus, current injury, right knee, subsequent encounter Shilpa Lindsey PA-C 10/02/2020 S83.241D Other tear of medial meniscus, current injury, right knee, subsequent encounter Gaviota CodyClaudia Elviemichelle, [email or web address]T 10/02/2020 S83.281D Other tear of latera l meniscus, current injury, right knee, subsequent encounter Gaviota CodyClaudia Elviemichelle, [facility] 09/27/2020 S83.241D Other tear of medial meniscus, current injury, right knee, subsequent encounter Gaviota CodyClaudia Elviemichelle, [facility] 09/27/2020 S83.281D Other tear of latera l meniscus, current injury, right knee, subsequent encounter Gaviota CodyClaudia Elviemichelle, [facility] [[email or web address]T 09/24/2020 S83.241D Other tear of medial meniscus, current injury, right knee, subsequent encounter Gaviota CodyClaudia Elviemichelle, [facility] [[email or web address]T 09/24/2020 S83.281D Other tear of latera l meniscus, current injury, right knee, subsequent encounter Gaviota CodyClaudia Elviemichelle, [facility] [[email or web address]T 09/20/2020 S83.241D Other tear of medial meniscus, current injury, right knee, subsequent encounter Stu Bergeron P.T. 09/20/2020 S83.281D Other tear of latera l meniscus, current injury, right knee, subsequent encounter Stu Bergeron P.T. 09/14/2020 S83.241D Other tear of medial meniscus, current injury, right knee, subsequent encounter Stu Bergeron P.T. 09/14/2020 S83.281D Other tear of latera l meniscus, current injury, right knee, subsequent encounter Stu Bergeron P.T. 09/10/2020 S83.241D Other tear of medial meniscus, current injury, right knee, subsequent encounter Stu Bergeorn P.T. 09/10/2020 S83.281D Other tear of latera l meniscus, current injury, right knee, subsequent encounter Stu Bergeron P.T. 09/07/2020 S83.241D Other tear of medial meniscus, current injury, right knee, subsequent encounter Shilpa Lindsey PA-C 09/07/2020 S83.281D Other tear of latera l meniscus, current injury, right knee, subsequent encounter Shilpa Lindsey PA-C 08/31/2020 S83.241D Other tear of medial meniscus, current injury, right knee, subsequent encounter Donald Lindsey MD 08/31/2020 S83.281D Other tear of latera l meniscus, current injury, right knee, subsequent encounter Donlad Lindsey MD 08/28/2020 S83.241A Other tear of medial meniscus, current injury, right knee, initial encounter Donald Lindsey MD 08/28/2020 S83.281A Other tear of latera l meniscus, current injury, right knee, initial encounter Donald Lindsey MD 08/28/2020 M17.11 Unilateral primary osteoarthriti s, right knee Donald Lindsey MD 08/28/2020 W00.0xxA Fall on same level due to ice an d snow, initial encounter Donald Lindsey MD 08/28/[address] in [facility] as the place of occurrence of the external cause Donald Lindsey MD Plan of Treatment Future Appointment(s):* 04/01/2021 2:15 pm - Humberto Noble, PClaudiaAClaudia at [facility] 02/25/2021 - Humberto Noble, PClaudiaAClaudia* S62.646A Nondisplaced fracture of proximal phalanx of right little finger, initial encounter for closed fracture * Follow up:* 3-4 weeks for rt little finger recheck with MKM repeat xrays Functional Status Description No Information Available Mental Status Description No Information Available Referrals Refer to Reason for Referral Status Appt Date Donald Lindsey MD PT RT KNEE WRITTEN AUTH PASSED TO PT DEPT. LS Created [address] [facility], [address] [place] [address] [phone] Donald Lindsey MD RT SHOULDER INJ OK TO [facility] PER [facility]GS. PASS ED TO [facility]. LS Created [address] [facility], [address] [place] [address] [phone]
--- OUTSIDE RECORDS SUMMARY | 2021-03-01 07:44 | CCD | Continuity of Care Document ---
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 Name Role Phone Raymond Du MD AUTM [phone] Problems Description No Information Available Social History Type Date Description Comments Sex Unknown ETOH Use Occasionally consumes alcohol Tobacco Use Start: Unknown End: Unknown Patient is a former smoker quit Smoking Status Reviewed: 02/13/21 Patient is a former smoker qu it Allergies and adverse reactions Description No Known Drug Allergies Medications Active Medications SIG Qnty Indications Ordering Provide r Date Celecoxib 200mg Capsules Take One Capsule By Mouth Twice A Day Unknown Metformin HCL 850mg Tablets Take One Tablet By Mouth Twice A Day Before Breakfast And Dinner Unknown Quinapril HCL 10mg Tablets Take One Tablet By Mouth Every Day Unknown Carvedilol 12.5mg Tablets Take One Tablet By Mouth Twice A Day With Food Unknown 0 Omeprazole Unknown Cosentyx Unknown Immunizations Description No Information Available Vital Signs Date Vital Result Comment 02/13/2021 3:18pm BP Systolic 156 mmHg BP Diastolic 95 mmHg Heart Rate 86 /min Respiratory Rate 14 /min O2 % BldC Oximetry 95 % Body Temperature 98.1 F Weight 210.00 lb Height 69 inches 5'9" BMI (Body Mass Index) 31.0 kg/m2 Pain Level 3 07/16/2017 9:34am BP Systolic 148 mmHg BP Diastolic 90 mmHg Heart Rate 77 /min O2 % BldC Oximetry 97 % Body Temperature 98.1 F Weight 200.00 lb Height 70 inches 5'10" BMI (Body Mass Index) 28.7 kg/m2 Pain Level 4 Results Description No Information Available Procedures Description No Information Available Medical Devices Description No Information Available Encounters Description No Information Available Assessments Date Code Description Provider 02/13/2021 M79.641 Pain in right hand Justo Corona Plan of Treatment 02/13/2021 - Justo Parsons* M79.641 Pain in right hand* Comments:* right hand x-rays reviewed. Possible subtle avulsion or chip fracture on proximal phalanx of the right 5th fingerRadiologist report [id number] finger jeannette-taped to 4th fingerreferral to orthopedics for further evaluation and managementContinue Celebrex for nowAdd Tylenol if neededFurther plan per orthopedicsPatient voiced understanding and agrees to treatment plan Functional Status Description No Information Available Mental Status Description No Information Available Referrals Description No Information Available
--- OUTSIDE RECORDS SUMMARY | 2021-03-01 07:44 | CCD | Continuity of Care Document ---
Author Author Bill CARPENTER [facility] Organization Unknown Address [address], [address] [place] [address] Phone [phone] Care Team Providers Care Specification Consultant Name Role Phone Raymond Du M.D. AUTM [phone] Problems Active Problems Provider Date Essential hypertension Jim Flores M.D. Onset: 2 Internal hemorrhoids without complication Jam Barahona Onset: 03/08/2012 Type 2 diabetes mellitus William Farmer DO Onset: 07/19 Gastroesophageal reflux disease William Farmer DO Onse t: 08/03/2013 Epigastric pain William Farmer DO Onset: 4 Cholangitis Jim Flores M.D. Onset: 10/24/2013 Social History Type Date Description Comments Sex Unknown ETOH Use Occasionally consumes alcohol Tobacco Use Start: Unknown End: Unknown Patient is a former smoker 1996 Allergies, Adverse Reactions, Alerts Description No Known Drug Allergies Medications Active Medications SIG Qnty Indications Ordering Provide r Date Suprep Bowel Prep Kit 17.5-3.13-1.6GM/177ML Solution take per doctor's bowel prep instructions. 354ml R19.8 Cristian Molina MD 01/01/2021 Milk Of Magnesia 1200mg/15ML Suspe nsion take 45 milliliters by mouth as directed on colonoscopy prep sheet. R19.8 Cristian Molina MD 01/01/2021 Carvedilol 12.5mg Tablets take one tablet by mouth twice a day 60tabs Unknown Metformin HCL ER 750mg Tablets ER 24HR 1 by mouth every day Unknown Celebrex 200mg Capsules Daily Unknown Latanoprost 0.005% Solution 1 drop both eyes at bedtime Unknown Pantoprazole Sodium 40mg Tablets D R twice daily Unknown Cosentyx 150mg/ml Soln Prefill Syr andria Monthly injection Unknown Zanaflex 2mg Capsules prn Unknown Immunizations Description No Information Available Vital Signs Date Vital Result Comment 01/01/2021 3:15pm BP Systolic 144 mmHg BP Diastolic 92 mmHg Height 70 inches 5'10" Weight 210.00 lb BMI (Body Mass Index) 30.1 kg/m2 [place] Body Weight 166 lb Weight 95.256 kg BSA (Body Surface Area) 2.13 m2 09/12/2014 9:57am BP Systolic 142 mmHg BP Diastolic 77 mmHg Height 70 inches 5'10" Weight 192.00 lb BMI (Body Mass Index) 27.5 kg/m2 [place] Body Weight 166 lb Weight 87.091 kg BSA (Body Surface Area) 2.05 m2 Results Description No Information Available Procedures Description No Information Available Medical Devices Description No Information Available Encounters Description No Information Available Assessments Date Code Description Provider 01/01/2021 R10.13 Epigastric pain SARBJIT Hunt 01/01/2021 R19.8 Other specified symp toms and signs involving the digestive system and abdomen SARBJIT Albright 01/01/2021 R14.0 Abdominal distension (gaseous) M SARBJIT Cruz Plan of Treatment 01/01/2021 - SARBJIT Albright* R10.13 Epigastric pain * R19.8 Other specified symptoms and signs involving the digestive system and abdomen * R14.0 Abdominal distension (gaseous) * * New Orders:* Endoscopy, Ordered: 01/01/21 * Comments:* Will arrange for upper endoscopy and colonoscopy. Reviewed risks and benefits of the procedures, as well as other options, with the patient. Prep for this procedure was discussed with patient, including risks and side effects associated with the prep. Patient verbalized understanding of all of the above and is in agreement to proceed. Patient will seek medical attention for any acute changes. Will monitor. * Follow up:* As scheduled, sooner if needed. Functional Status Description No Information Available Mental Status Description No Information Available Referrals Refer to Reason for Referral Status Appt Date Cristian Molina M.D. EPIGASTRIC PAIN Scheduled 11/07/2020 [facility], Gastroenterology [address], [address] [place] [id number] [phone]
--- OUTSIDE RECORDS SUMMARY | 2021-03-01 07:44 | CCD | Continuity of Care Document ---
Author Author Bill MOLINA MD Organization Unknown Address [address] [place] [address] Phone [phone] Care Team Providers Care Black Leather Trimmer Name Role Phone Raymond Du M.D. AUTM [phone] Problems Active Problems Provider Date Essential hypertension [...] End: Unknown Patient is a former smoker QUIT 1996 Allergies and adverse reactions Description No Known [...] lb BMI (Body Mass Index) 30.1 kg/m2 [place] Body Weight 166 lb Weight 95.256 kg BSA (Body Surface Area) 2.13 m2 09/12/2014 9:57am BP Systolic 142 mmHg BP Diastolic 77 mmHg Height 70 inches 5'10" Weight 192.00 lb BMI (Body Mass Index) 27.5 kg/m2 [place] Body Weight 166 lb Weight 87.091 kg BSA (Body Surface Area) 2.05 m2 Results Test Acquired Date Facility Test Result H/L Range Note Hemoglobin A1c 01/15/2021 [facility] nter Main Lab [address] [place] [address] [phone] Hemoglobin A1c 6.4 % Normal 1 Estimated Average Glucose 137 mg/dL High 60-110 2 CBC With Differential 01/15/2021 [facility] Main Lab [address] [place] [address] [phone] White Blood Count 8.3 10 Normal 4.0-10.0 Red Blood Count 5.05 10 Normal 4.30-6.10 Hemoglobin 15.8 g/dL Normal 13.5-17.5 Hematocrit 45.5 % Normal 42.0-52.0 Mean Corpuscular Volume 90.1 fl Normal 80.0-96.0 Mean Corpuscular Hemoglobin 31.3 pg Normal 27.0-33.0 Mean Corpuscular HGB Conc 34.7 g/dL Normal 32.0-36.5 Red Cell Distribution Width 12.5 % Normal 11.5-14.5 Platelet Count, Automated 251 10 Normal 150-450 Neutrophils % 60.7 % Normal 36.0-66.0 Lymph % 29.4 % Normal 24.0-44.0 [place] % 7.8 % Normal 2.0-8.0 Eos % 1.2 % Normal 0.0-3.0 Baso % 0.4 % Normal 0.0-1.0 Immature Granulocyte % 0.5 % Normal 0-3.0 Nucleated Red Blood Cell % 0.0 % Normal 0-0 Neutrophils # 5.1 10 Normal 1.5-8.5 Lymph # 2.4 10 Normal 1.5-5.0 [place] # 0.7 10 Normal 0.0-0.8 Eos # 0.1 10 Normal 0.0-0.5 Baso # 0.0 10 Normal 0.0-0.2 3 Laboratory test finding 01/15/2021 [facility] Main Lab [address] [place] [address] [phone] Erythrocyte Sedimentation Rate 5 mm/hr Normal 0 -20 Comprehensive Metabolic Profil 01/15/2021 [facility] Main Lab [address] [place] [address] [phone] Glucose, Fasting 110 mg/dL High 70-100 Blood Urea Nitrogen 10 mg/dL Normal 7-18 Creatinine For GFR 0.93 mg/dL Normal 0.70-1.30 Glomerular Filtration Rate > 60.0 Normal >56 4 Sodium Level 144 mEq/L Normal 136-145 Potassium Serum 4.7 mEq/L Normal 3.5-5.1 Chloride Level 105 mEq/L Normal 98-107 Carbon Dioxide Level 30 mEq/L Normal 21-32 Anion Gap 9 mEq/L Normal 8-16 Calcium Level 9.3 mg/dL Normal 8.5-10.1 Ast/Sgot 21 U/L Normal 7-37 Alt/SGPT 71 U/L Normal 12-78 Alkaline Phosphatase 70 U/L Normal 45-117 Bilirubin,Total 0.6 mg/dL Normal 0.2-1.0 Total Protein 7.4 GM/DL Normal 6.4-8.2 Albumin 4.1 GM/DL Normal 3.2-5.2 Albumin/Globulin Ratio 1.2 Normal 5 Lipid Panel 01/15/2021 [facility] nter Main Lab [address] [place] [address] [phone] Triglycerides Level 149 mg/dL Normal <150 Cholesterol Level 198 mg/dL Normal <200 HDL Cholesterol 45 mg/dL Normal >40 LDL Cholesterol 123 mg/dL High <100 Non-HDL-C 153 mg/dL Normal Cholesterol Risk Ratio 4.400 Normal <5 6 Laboratory test finding 01/15/2021 [facility] Main Lab [address] [place] [phone] PTH Intact 37.7 pg/mL Normal 18.5-88.0 7 Total 25(Oh) Vitamin D 27.3 NG/ML Low 30.0-100.0 8 Ferritin 100 NG/ML Normal 26-388 9 C Reactive Protein Quantitativ 0.30 mg/dL Normal 0.00-0.30 10 Gastrointestinal (GI) Panel 01/03/2021 [facility] Main Lab [address] [place] [address] [phone] Gastrointestinal (GI) Panel This Gastrointes <SEE NOTE > 11, 12 Laboratory test finding 01/03/2021 [facility] Main Lab [address] [place] [address] [phone] Calprotectin Stool 139 ug/g High 0-120 13 , 14 Pancreatic Elastase Stool >500 Normal >200 15 , 16 Fat Fecal Total Stool Sendout 01/03/2021 [facility] Main Lab [address] [place] [address] [phone] Fats Neutral Normal Normal . 17 Fats Total Normal Normal . 18, 19 FT4&TSH Panel 01/01/2021 [facility] nter Main Lab [address] [place] [address] [phone] Thyroid Stimulating Hormone 0.950 uIU/ML Normal 0. 358-3.740 Free T4 1.14 ng/dL Normal 0.76-1.46 20 Laboratory test finding 01/01/2021 [facility] Main Lab [address] [place] [address] [phone] Tissue Transglutaminase IgA <2 U/mL Normal 0-3 21 Immunoglobulin A 293.0 mg/dL Normal 70-400 22 1 REFERENCE RANGES: <=5.6% NORMAL 5.7-6.4% SUGGESTS IMPAIRED GLUCOSE META BOLISM/PREDIABETIC >= 6.5% ABNORMAL 2 01/22/21 (ThuJan 22) 11:33 A M NERIS CARPENTER Ordered by PCP. 3 01/22/21 (ThuJan 22) 11:33 A M NERIS CHARLEBOIS Ordered by PCP. 4 Units are mL/min/1.73 m2 Chronic Kidney Disease Staging per NKF: Stage I & II GFR >=60 Normal to Mildly Decreased Stage III GFR 30-59 Moderately Decreased Stage IV GFR 15-29 Severely Decreased Stage V GFR <15 Very Little GFR Left ESRD GFR <15 on ANIMAL HUSBANDRY MANAGER 5 01/22/21 (ThuJan 22) 11:34 A M NERIS CHARLEBOIS Ordered by PCP. 6 01/22/21 (ThuJan 22) 11:34 A M NERIS CHARLEBOIS Ordered by PCP. 7 01/22/21 (ThuJan 22) 11:34 A M NERIS CHARLEBOIS Ordered by PCP. 8 01/22/21 (ThuJan 22) 11:35 A M NERIS CHARLEBOIS Ordered by PCP. 9 01/22/21 (ThuJan 22) 11:35 A M NERIS CHARLEBOIS Ordered by PCP. 10 01/22/21 (ThuJan 22) 11:35 A M NERIS CHARLEBOIS Ordered by PCP. 11 This Gastrointestinal PCR Pa george detects the following bacteria, parasites and viruses: Campylobacter (jejuni, coli and upsaliensis), Clostridium difficile (toxin A/B), Plesiomonas shigelloides, Salmonella, Yersinia enterocolitica, Vibrio (parahaemolyticus, vulnificus and cholerae), Vibrio clolerae, Enteroaggregative E. coli (EAEC), Enteropathogenis E. coli (EPEC), Enterotoxigenic E. coli (ETEC) it/st, Shiga-like producing E. coli (STEC) stx1/stc2, E.coli O157, Shigella/Enteroinvasive E. coli (EIEC), Cryptosporidium, Cyclospora cayetanensis, Entamoeba histolytica, Giardia lamblia, Adenovirus F 40/41, Astrovirus, Norovirus GI/GII, Rotavirus A and Sapovirus (I, II, IV, V). One negative specimen does not rule out the possibility of a parasitic infection. NEGATIVE by MULTIPLEXED NUCLEIC ACID PCR 12 01/22/21 (ThuJan 22) 11:36 A M NERIS CHARLEBOIS Negative. 13 Concentration Interpreta tion Follow-Up <16 - 50 ug/g Normal None >50 -120 ug/g Borderline Re-evaluate in 4-6 weeks >120 ug/g Abnormal Repeat as clinically indicated Performed at: [facility] [id number] Brazing Machine Operator Automatic: Jalyn Leija MD, Phone: [phone] Performed at: [facility] [address] [id number] Brazing Machine Operator Automatic: Zack Virk MD, Phone: [phone] 14 01/22/21 (ThuJan 22) 11:37 A M NERIS CHARLEBOIS Elevated. Will inform patient. See triage. 15 Result Units: ug Elast./g Severe Pancreatic Insufficiency: <100 Moderate Pancreatic Insufficiency: 100 - 200 Normal: >200 16 01/22/21 (ThuJan 22) 11:37 A M NERIS CHARLEBOIS Normal. 17 Normal (<60 Droplets/HPF) This test was developed and its performance characteristics determined by [facility]. It has not been cleared or approved by the Food and Drug Administration. 18 Normal (<100 Droplets/HPF) This test was developed and its performance characteristics determined by [facility]. It has not been cleared or approved by the Food and Drug Administration. 19 01/22/21 (ThuJan 22) 11:37 A M NERIS CHARLEBOIS Normal. 20 01/22/21 (ThuJan 22) 11:23 A M NERIS CHARLEBOIS Thyroid function is normal. 21 Negative 0 - 3 Weak Positive 4 - 10 Positive >10 . Tissue Transglutaminase (tTG) has been identified as the endomysial antigen. Studies have demonstr- ated that endomysial IgA antibodies have over 99% specificity for gluten sensitive enteropathy. Performed at: [facility] [id number] Brazing Machine Operator Automatic: Jalyn Leija MD, Phone: [phone] 22 01/22/21 (ThuJan 22) 11:25 A M NERIS CHARLEBOIS Celiac marker is normal. Procedures Date Code Description Status 01/01/2021 28629 Office/Outpatient New Moderate M DM 45-59 Minutes Completed Medical Devices Description No Information Available Encounters Type Date Location Provider Dx Diagnosis Office Visit 01/01/2021 3:00p [facility] Gastroenterology Pra ctice Neris Nevarez SARBJIT Carpenter R10.13 Epigastric pain K21.9 Gastro-esophageal reflux dis ease without esophagitis R19.8 Oth symptoms and signs invol ving the dgstv sys and abdomen R14.0 Abdominal distension (gaseou s) Assessments Date Code Description Provider 01/01/2021 R10.13 Epigastric pain Neris Nevarez SARBJIT Mcclendon 01/01/2021 K21.9 Gastro-esophageal reflux disease without esophagitis Neris Nevarez SARBJIT Carpenter 01/01/2021 R19.8 Other specified symp toms and signs involving the digestive system and abdomen Neris Geri SARBJIT Carpenter 01/01/2021 R14.0 Abdominal distension (gaseous) Escobar lozano SARBJIT Hernandez Plan of Treatment 01/01/2021 - Neris Geri SARBJIT Carpenter* R10.13 Epigastric pain * K21.9 Gastro-esophageal reflux disease without esophagitis * R19.8 Other specified symptoms and signs [...] Cristian Molina M.D. EPIGASTRIC PAIN Scheduled 11/07/2020 [facility], Gastroenterology [address], [address] [place] [address] [phone]
--- OUTSIDE RECORDS SUMMARY | 2021-03-01 07:44 | CCD | Continuity of Care Document ---
Author Author Bill CARPENTER [facility] Organization Unknown Address [address], [address] [place] [address] Phone [phone] Care Team Providers Care Health Outreach Worker Name Role Phone Raymond Du M.D. AUTM [phone] Problems Active Problems Provider Date Essential hypertension [...] lb BMI (Body Mass Index) 30.1 kg/m2 [place] Body Weight 166 lb Weight 95.256 kg BSA (Body Surface Area) 2.13 m2 09/12/2014 9:57am BP Systolic 142 mmHg BP Diastolic 77 mmHg Height 70 inches 5'10" Weight 192.00 lb BMI (Body Mass Index) 27.5 kg/m2 [place] Body Weight 166 lb Weight 87.091 kg BSA (Body Surface Area) 2.05 m2 Results Test Acquired Date Facility Test Result H/L Range Note Gastrointestinal (GI) Panel 01/03/2021 [facility] Main Lab [address] [place] [address] [phone] Gastrointestinal (GI) Panel This Gastrointes <SEE NOTE > 1 Laboratory test finding 01/03/2021 [facility] Main Lab [address] [place] [address] [phone] Calprotectin Stool 139 ug/g High 0-120 2 Pancreatic Elastase Stool >500 Normal >200 3 Fat Fecal Total Stool Sendout 01/03/2021 [facility] Main Lab [address] [place] [address] [phone] Fats Neutral Normal Normal . 4 Fats Total Normal Normal . 5 FT4&TSH Panel 01/01/2021 [facility] Main Lab [address] [place] [address] [phone] Thyroid Stimulating Hormone 0.950 uIU/ML Normal 0. 358-3.740 Free T4 1.14 ng/dL Normal 0.76-1.46 Laboratory test finding 01/01/2021 [facility] Main Lab [address] [place] [address] [phone] Tissue Transglutaminase IgA <2 U/mL Normal 0-3 6 Immunoglobulin A 293.0 mg/dL Normal 70-400 1 This Gastrointestinal PCR Pa george detects the [...] infection. NEGATIVE by MULTIPLEXED NUCLEIC ACID PCR 2 Concentration Interpreta tion Follow-Up <16 - 50 ug/g Normal None >50 -120 ug/g Borderline Re-evaluate in 4-6 weeks >120 ug/g Abnormal Repeat as clinically indicated Performed at: [address] [id number] Canoe Builder: Jalyn Leija MD, Phone: [phone] Performed at: [address] [id number] Canoe Builder: Zack Virk MD, Phone: [phone] Result Units: ug Elast./g Severe Pancreatic Insufficiency: <100 Moderate Pancreatic Insufficiency: 100 - 200 Normal: >200 4 Normal (<60 Droplets/HPF) This test was developed and its performance characteristics determined by [facility]. It has not been cleared or approved by the Food and Drug Administration. 5 Normal (<100 Droplets/HPF) This test was developed and its performance characteristics [facility]. It has not been cleared or approved by the Food and Drug Administration. 6 Negative 0 - 3 Weak Positive 4 - 10 Positive >10 . Tissue Transglutaminase (tTG) has been identified as the endomysial antigen. Studies have demonstr- ated that endomysial IgA antibodies have over 99% specificity for gluten sensitive enteropathy. Performed at: RN - [facility] [address] [id number] Canoe Builder: Jalyn Leija MD, Phone: [phone] Procedures Date Code Description Status 01/01/2021 86712 Office/Outpatient New Moderate M DM 45-59 Minutes Completed Medical Devices Description No Information Available Encounters Type Date Location Provider Dx Diagnosis Office Visit 01/01/2021 3:00p [facility] Gastroenterology Pra ctice Neris Nevarez SARBJIT [...] Albright 01/01/2021 R14.0 Abdominal distension (gaseous) M blake SARBJIT Hernandez Plan of Treatment 01/01/2021 - SARBJIT Albright* R10.13 Epigastric pain * K21.9 Gastro-esophageal reflux [...] Cristian Molina M.D. EPIGASTRIC PAIN Scheduled 11/07/2020 [facility], Gastroenterology [address], [address] [place] [id number] [phone]
--- OUTSIDE RECORDS SUMMARY | 2021-03-01 07:44 | CCD | Continuity of Care Document ---
Author Author Bill NOBLE P.A. Organization Unknown Address [address] [place] [address], [address] [address] Phone [phone] Care Team Providers Care Torch Brazer Name Role Phone Raymond Du MD AUTM [phone] Raymond Du MD AUTM [phone] Problems Description No Information Available Social History [...] Available Procedures Date Code Description Status 02/25/2021 78186 X-Ray Hand Three Views Completed 02/25/2021 72892 FX Phalanx Shaft/Prox/Mid Finger /Thumb W/O Manipulation Completed 02/25/2021 44522 Office/Outpatient Established Lo w MDM 20-29 Min Completed 01/07/2021 88350 Therapeutic Procedure, Each 15 M inutes Completed 01/07/2021 28821 Therapeutic Procedure, Each 15 M inutes Completed 01/01/2021 65205 Therapeutic Procedure, Each 15 M inutes Completed 01/01/2021 27284 Therapeutic Procedure, Each 15 M inutes Completed 01/01/2021 36660 Electrical Stimulati on Manual, Each 15 Min, Constant Attendance Completed 12/26/2020 26201 Therapeutic Procedure, Each 15 M inutes Completed 12/26/2020 95098 Electrical Stimulati on Manual, Each 15 Min, Constant Attendance Completed 12/26/2020 62684 Therapeutic Procedure, Each 15 M inutes Completed 12/19/2020 25624 Therapeutic Procedure, Each 15 M inutes Completed 12/19/2020 71267 Therapeutic Procedure, Each 15 M inutes Completed 12/19/2020 32758 Electrical Stimulati on Manual, Each 15 Min, Constant Attendance Completed 12/19/2020 24040 Hot Or Cold Packs Completed 12/13/2020 64539 Therapeutic Procedure, Each 15 M inutes Completed 12/13/2020 03272 Hot Or Cold Packs Completed 12/13/2020 23721 Electrical Stimulati on Manual, Each 15 Min, Constant Attendance Completed 12/13/2020 06181 Therapeutic Procedure, Each 15 M inutes Completed 12/11/2020 98807 Therapeutic Procedure, Each 15 M inutes Completed 12/11/2020 09941 Therapeutic Procedure, Each 15 M inutes Completed 12/11/2020 68242 Electrical Stimulati on Manual, Each 15 Min, Constant Attendance Completed 12/11/2020 87281 Hot Or Cold Packs Completed 12/07/2020 87454 Office/Outpatient Established Lo w MDM 20-29 Min Completed 12/04/2020 75040 Re-Eval Of PT Establ ished Plan Of Care 20Mins Face To Face PT/Fam Completed 12/04/2020 16580 Therapeutic Procedure, Each 15 M inutes Completed 12/04/2020 53432 Therapeutic Procedure, Each 15 M inutes Completed 12/03/2020 00246 Office/Outpatient Established Lo w MDM 20-29 Min Completed 10/15/2020 93724 Office/Outpatient Established Lo w MDM 20-29 Min Completed 10/10/2020 53099 Therapeutic Procedure, Each 15 M inutes Completed 10/10/2020 19592 Hot Or Cold Packs Completed 10/10/2020 86805 Electrical Stimulati on Manual, Each 15 Min, Constant Attendance Completed 10/10/2020 82662 Re-Eval Of PT Establ ished Plan Of Care 20Mins Face To Face PT/Fam Completed 10/10/2020 92672 Therapeutic Procedure, Each 15 M inutes Completed 10/05/2020 78029 Therapeutic Procedure, Each 15 M inutes Completed 10/05/2020 48768 Therapeutic Procedure, Each 15 M inutes Completed 10/05/2020 59361 Electrical Stimulati on Manual, Each 15 Min, Constant Attendance Completed 10/05/2020 75901 Hot Or Cold Packs Completed 10/02/2020 72742 Therapeutic Procedure, Each 15 M inutes Completed 10/02/2020 49606 Therapeutic Procedure, Each 15 M inutes Completed 10/02/2020 04870 Electrical Stimulati on Manual, Each 15 Min, Constant Attendance Completed 10/02/2020 36819 Hot Or Cold Packs Completed 09/27/2020 02115 Therapeutic Procedure, Each 15 M inutes Completed 09/27/2020 40868 Therapeutic Procedure, Each 15 M inutes Completed 09/27/2020 65027 Electrical Stimulati on Manual, Each 15 Min, Constant Attendance Completed 09/27/2020 64051 Hot Or Cold Packs Completed 09/24/2020 58780 Therapeutic Procedure, Each 15 M inutes Completed 09/24/2020 59039 Hot Or Cold Packs Completed 09/24/2020 69759 Electrical Stimulati on Manual, Each 15 Min, Constant Attendance Completed 09/24/2020 49222 Therapeutic Procedure, Each 15 M inutes Completed 09/20/2020 36279 Therapeutic Procedure, Each 15 M inutes Completed 09/20/2020 25761 Therapeutic Procedure, Each 15 M inutes Completed 09/20/2020 98798 Electrical Stimulati on Manual, Each 15 Min, Constant Attendance Completed 09/20/2020 09514 Hot Or Cold Packs Completed 09/14/2020 41789 Therapeutic Procedure, Each 15 M inutes Completed 09/14/2020 49854 Therapeutic Procedure, Each 15 M inutes Completed 09/14/2020 04416 Electrical Stimulati on Manual, Each 15 Min, Constant Attendance Completed 09/14/2020 77181 Hot Or Cold Packs Completed 09/10/2020 15316 Physical Therapy Eval - Low Comp lexity Completed 08/28/2020 64674 Arthroscopy Knee W/M eniscectomy Inc Chondroplasty (Med & Lateral) Completed Medical Devices Description No Information Available Encounters Type Date Location Provider Dx Diagnosis Office Visit 02/25/2021 10:00a [facility] Noble, P.A. S62.646A Nondisp fx of proximal phalanx of right little finger, init Office Visit 12/07/2020 3:45p [facility]eline Lindsey MD S83.241D Oth tear of medial meniscus, current injury, r knee, subs S83.281D Oth tear of lat mensc, curre nt injury, right knee, subs Office Visit 12/03/2020 4:45p [facility] Noble, P.A. M75.41 Impingement syndrome of right shoulder Office Visit 11/05/2020 4:00p [facility]eline Lindsey MD S83.241D Oth tear of medial meniscus, current injury, r knee, subs S83.281D Oth tear of lat mensc, curre nt injury, right knee, subs Office Visit 10/15/2020 9:00a [facility] Noble, P.A. M75.41 Impingement syndrome of right shoulder Office Visit 10/05/2020 8:30a [facility]eline Lindsey PA-C S83.241 D Oth tear of medial meniscus, current injury, r knee, subs S83.281D Oth tear of lat mensc, curre nt injury, right knee, subs Office Visit 09/07/2020 11:15a [place] Shilpa Lindsey PA-C S83.241 D Oth tear of medial meniscus, current injury, r knee, subs S83.281D Oth tear of lat mensc, callume nt injury, right knee, subs Office Visit 08/31/2020 8:30a [place]eline Lindsey MD S83.241D Oth tear of medial [...] meniscus, current injury, right knee, subsequent encounter Shilap Lindsey PA-C 10/02/2020 S83.241D Other tear of medial meniscus, current injury, right knee, subsequent encounter Gaviota oCdyClaudia El[facility]helle, [facility] 10/02/2020 S83.281D Other tear of latera l meniscus, current injury, right knee, subsequent encounter Gaviota CodyClaudia Elviemichelle, [facility] 09/27/2020 S83.241D Other tear of medial meniscus, current injury, right knee, subsequent encounter Gaviota CodyClaudia Elviemichelle, [facility] 09/27/2020 S83.281D Other tear of latera l meniscus, current injury, right knee, subsequent encounter Gaviota CodyClaudia Elviemichelle, [facility] 09/24/2020 S83.241D Other tear of medial meniscus, current injury, right knee, subsequent encounter Gaviota CodyClaudia Elviemichelle, [facility] 09/24/2020 S83.281D Other tear of latera l meniscus, current injury, right knee, subsequent encounter Gaviota CodyCladuia Elviemichelle, [facility] 09/20/2020 S83.241D Other tear of medial meniscus, [...] knee, subsequent encounter Stu Bergeron P.T. 09/10/2020 S83.281D Other tear of latera [...] right knee, subsequent encounter Donald Lindsey MD 08/28/2020 S83.241A Other tear of [...] Lindsey MD 08/28/[address] in [facility] as the place of occurrence of the external cause Donald Lindsey MD Plan of Treatment Future Appointment(s):* 04/01/2021 2:15 pm - Humberto Noble, PClaudiaAClaudia at [place] 02/25/2021 - Humberto Noble, PClaudiaAClaudia* S62.646A Nondisplaced [...] AUTH PASSED TO PT DEPT. LS Created [address] [facility], [address] [place] [address] [phone] Donald Lindsey MD RT SHOULDER INJ OK TO [facility] PER MTGS. PASS ED TO [facility]. LS Created [address] [facility], [address] [place] [address] [phone]
--- OUTSIDE RECORDS SUMMARY | 2021-03-01 07:44 | CCD | Continuity of Care Document ---
Author Author Bill PARK Organization Unknown Address [address] [place] [address] [place] [address] Phone [phone] Care Team Providers Care Merchandising Director Name Role Phone Raymond Du MD AUTM [phone] Problems Description No Information Available Social History [...] phalanx of the right 5th fingerRadiologist report [id number] finger jeannette-taped to 4th fingerreferral to orthopedics for further evaluation and managementContinue Celebrex for nowAdd Tylenol if neededFurther plan per orthopedicsPatient voiced understanding and agrees to treatment plan Functional Status Description No Information Available Mental Status Description No Information Available Referrals Description No Information Available
--- OUTSIDE RECORDS SUMMARY | 2021-03-01 07:44 | CCD ---
Continuity of Care Document (CCD) Created on: 01/22/2021 Bill Heredia External Reference #: [id number] : [id number] Sex: Male Author Author Bill MOLINA MD Organization Unknown Address [address] [place] [address] Phone [phone] Care Team Providers Care Equipment Services Associate Name Role Phone Raymond Du M.D. AUTM [phone] Problems Active Problems Provider Date Essential hypertension Jim Flores M.D. Onset: 2 Internal hemorrhoids without complication Jam Barahona Onset: 03/08/2012 Type 2 diabetes mellitus William Farmer DO Onset: 07/19 Gastroesophageal reflux disease Willima Farmer DO Onse t: 08/03/2013 Epigastric pain [...] lb BMI (Body Mass Index) 30.1 kg/m2 [place] Body Weight 166 lb Weight 95.256 kg BSA (Body Surface Area) 2.13 m2 09/12/2014 9:57am BP Systolic 142 mmHg BP Diastolic 77 mmHg Height 70 inches 5'10" Weight 192.00 lb BMI (Body Mass Index) 27.5 kg/m2 [place] Body Weight 166 lb Weight 87.091 kg BSA (Body Surface Area) 2.05 m2 Results Test Acquired Date Facility Test Result H/L Range Note Hemoglobin A1c [facility] [address] [place] [address] [phone] Hemoglobin A1c 6.4 % Normal 1 Estimated Average Glucose 137 mg/dL High 60-110 2 CBC With Differential 01/15/2021 [facility] [address] [place] [address] [phone] White Blood Count 8.3 10 Normal 4.0-10.0 [...] 36.0-66.0 Lymph % 29.4 % Normal 24.0-44.0 [place] % 7.8 % Normal 2.0-8.0 Eos % 1.2 % Normal 0.0-3.0 Baso % 0.4 % Normal 0.0-1.0 Immature Granulocyte % 0.5 % Normal 0-3.0 Nucleated Red Blood Cell % 0.0 % Normal 0-0 Neutrophils # 5.1 10 Normal 1.5-8.5 Lymph # 2.4 10 Normal 1.5-5.0 [place] # 0.7 10 Normal 0.0-0.8 Eos # 0.1 10 Normal 0.0-0.5 Baso # 0.0 10 Normal 0.0-0.2 3 Laboratory test finding 01/15/2021 [facility] [address] [place] [address] [phone] Erythrocyte Sedimentation Rate 5 mm/hr Normal 0 -20 Comprehensive Metabolic Profil 01/15/2021 [facility] [address] [place] [address] [phone] Glucose, Fasting 110 mg/dL High 70-100 Blood [...] Ratio 1.2 Normal 5 Lipid Panel 01/15/2021 [facility] [address] [place] [address] [phone] Triglycerides Level 149 mg/dL Normal <150 Cholesterol Level 198 mg/dL Normal <200 HDL Cholesterol 45 mg/dL Normal >40 LDL Cholesterol 123 mg/dL High <100 Non-HDL-C 153 mg/dL Normal Cholesterol Risk Ratio 4.400 Normal <5 6 Laboratory test finding 01/15/2021 [facility] [address] [place] [address] [phone] PTH Intact 37.7 pg/mL Normal 18.5-88.0 7 Total 25(Oh) Vitamin D 27.3 NG/ML Low 30.0-100.0 8 Ferritin 100 NG/ML Normal 26-388 9 C Reactive Protein Quantitativ 0.30 mg/dL Normal 0.00-0.30 10 Gastrointestinal (GI) Panel 01/03/2021 [facility] [address] [place] [address] [phone] Gastrointestinal (GI) Panel This Gastrointes <SEE NOTE > 11, 12 Laboratory test finding 01/03/2021 [facility] [address] [place] [address] [phone] Calprotectin Stool 139 ug/g High 0-120 13 , 14 Pancreatic Elastase Stool >500 Normal >200 15 , 16 Fat Fecal Total Stool Sendout 01/03/2021 [facility] [address] [place] [address] [phone] Fats Neutral Normal Normal . 17 Fats Total Normal Normal . 18, 19 FT4&TSH Panel 01/01/2021 [facility] [address] [place] [address] [phone] Thyroid Stimulating Hormone 0.950 uIU/ML Normal 0. 358-3.740 Free T4 1.14 ng/dL Normal 0.76-1.46 20 Laboratory test finding 01/01/2021 [facility] [address] [place] [address] [phone] Tissue Transglutaminase IgA <2 U/mL Normal 0-3 [...] Little GFR Left ESRD GFR <15 on BREWER HELPER 5 01/22/21 (ThuJan 22) 11:34 A M [...] Abnormal Repeat as clinically indicated Performed at: [facility] [address] [id number] Hat Lining Paster: Jalyn Leija MD, Phone: [phone] Performed at: [facility] [address] [id number] Hat Lining Paster: Zack Virk MD, Phone: [phone] 14 01/22/21 (ThuJan 22) 11:37 A M [...] specificity for gluten sensitive enteropathy. Performed at: [facility] [address] [id number] Hat Lining Paster: Jalyn Leija MD, Phone: [phone] 22 01/22/21 (ThuJan 22) 11:25 A M NERIS CHARLEBOIS Celiac marker is normal. Procedures Date Code Description Status 01/01/2021 24872 Office/Outpatient New Moderate M DM 45-59 Minutes Completed Medical Devices Description No Information Available Encounters Type Date Location Provider Dx Diagnosis Office Visit 01/01/2021 3:00p [facility] Gastroenterology Pra ctice Neris Nevarez SARBJIT [...] Cristian Molina M.D. EPIGASTRIC PAIN Scheduled 11/07/2020 [facility], Gastroenterology [address] [facility], [address] [place] [address] [phone]
--- OUTSIDE RECORDS SUMMARY | 2021-03-01 07:44 | CCD | Continuity of Care Document ---
Author Author Bill BERGERON P.T. Organization Unknown Address [address] [place] [address] Phone [phone] Care Team Providers Care Plug Cutting Machine Operator Name Role Phone Raymond Du MD AUTM [phone] Raymond Du MD AUTM [phone] Problems Description No Information Available Social History Type Date Description Comments Sex Unknown ETOH Use Occasionally consumes alcohol Tobacco Use Start: Unknown End: Unknown Patient is a former smoker Smoking Status Reviewed: 06/19/20 Patient is a former smoker Allergies, Adverse Reactions, Alerts Description No Known [...] 08/23/2020 9:00am Body Temperature 96.4 F Results Test Acquired Date Facility Test Result H/L Range Note Laboratory test finding 07/16/2020 In House Covid Rapid Testing Negative Procedures Date Code Description Status 01/07/2021 41339 Therapeutic Procedure, Each 15 M inutes Completed 01/07/2021 02458 Therapeutic Procedure, Each 15 M inutes Completed 01/01/2021 79788 Therapeutic Procedure, Each 15 M inutes Completed 01/01/2021 59608 Electrical Stimulati on Manual, Each 15 Min, Constant Attendance Completed 01/01/2021 37701 Therapeutic Procedure, Each 15 M inutes Completed 12/26/2020 72492 Therapeutic Procedure, Each 15 M inutes Completed 12/26/2020 23283 Therapeutic Procedure, Each 15 M inutes Completed 12/26/2020 32755 Electrical Stimulati on Manual, Each 15 Min, Constant Attendance Completed 12/19/2020 00796 Therapeutic Procedure, Each 15 M inutes Completed 12/19/2020 37493 Therapeutic Procedure, Each 15 M inutes Completed 12/19/2020 79241 Electrical Stimulati on Manual, Each 15 Min, Constant Attendance Completed 12/19/2020 91609 Hot Or Cold Packs Completed 12/13/2020 58128 Hot Or Cold Packs Completed 12/13/2020 36940 Electrical Stimulati on Manual, Each 15 Min, Constant Attendance Completed 12/13/2020 14903 Therapeutic Procedure, Each 15 M inutes Completed 12/13/2020 13014 Therapeutic Procedure, Each 15 M inutes Completed 12/11/2020 70518 Therapeutic Procedure, Each 15 M inutes Completed 12/11/2020 13428 Therapeutic Procedure, Each 15 M inutes Completed 12/11/2020 35493 Electrical Stimulati on Manual, Each 15 Min, Constant Attendance Completed 12/11/2020 79246 Hot Or Cold Packs Completed 12/07/2020 55708 Office/Outpatient Established Lo w MDM 20-29 Min Completed 12/04/2020 26054 Re-Eval Of PT Establ ished Plan Of Care 20Mins Face To Face PT/Fam Completed 12/04/2020 32264 Therapeutic Procedure, Each 15 M inutes Completed 12/04/2020 54504 Therapeutic Procedure, Each 15 M inutes Completed 12/03/2020 05314 Office/Outpatient Established Lo w MDM 20-29 Min Completed 10/15/2020 65301 Office/Outpatient Established Lo w MDM 20-29 Min Completed 10/10/2020 79280 Hot Or Cold Packs Completed 10/10/2020 82373 Electrical Stimulati on Manual, Each 15 Min, Constant Attendance Completed 10/10/2020 63878 Therapeutic Procedure, Each 15 M inutes Completed 10/10/2020 11686 Re-Eval Of PT Establ ished Plan Of Care 20Mins Face To Face PT/Fam Completed 10/10/2020 51472 Therapeutic Procedure, Each 15 M inutes Completed 10/05/2020 00178 Therapeutic Procedure, Each 15 M inutes Completed 10/05/2020 39885 Therapeutic Procedure, Each 15 M inutes Completed 10/05/2020 18526 Electrical Stimulati on Manual, Each 15 Min, Constant Attendance Completed 10/05/2020 31880 Hot Or Cold Packs Completed 10/02/2020 72304 Therapeutic Procedure, Each 15 M inutes Completed 10/02/2020 09250 Hot Or Cold Packs Completed 10/02/2020 31158 Electrical Stimulati on Manual, Each 15 Min, Constant Attendance Completed 10/02/2020 99840 Therapeutic Procedure, Each 15 M inutes Completed 09/27/2020 86494 Therapeutic Procedure, Each 15 M inutes Completed 09/27/2020 45082 Therapeutic Procedure, Each 15 M inutes Completed 09/27/2020 91718 Electrical Stimulati on Manual, Each 15 Min, Constant Attendance Completed 09/27/2020 10373 Hot Or Cold Packs Completed 09/24/2020 86249 Therapeutic Procedure, Each 15 M inutes Completed 09/24/2020 67901 Hot Or Cold Packs Completed 09/24/2020 24430 Electrical Stimulati on Manual, Each 15 Min, Constant Attendance Completed 09/24/2020 41825 Therapeutic Procedure, Each 15 M inutes Completed 09/20/2020 79846 Therapeutic Procedure, Each 15 M inutes Completed 09/20/2020 98019 Therapeutic Procedure, Each 15 M inutes Completed 09/20/2020 05185 Electrical Stimulati on Manual, Each 15 Min, Constant Attendance Completed 09/20/2020 85086 Hot Or Cold Packs Completed 09/14/2020 85616 Therapeutic Procedure, Each 15 M inutes Completed 09/14/2020 39568 Therapeutic Procedure, Each 15 M inutes Completed 09/14/2020 15995 Electrical Stimulati on Manual, Each 15 Min, Constant Attendance Completed 09/14/2020 12245 Hot Or Cold Packs Completed 09/10/2020 98096 Physical Therapy Eval - Low Comp lexity Completed 08/28/2020 82787 Arthroscopy Knee W/M eniscectomy Inc Chondroplasty (Med & Lateral) Completed 07/13/2020 71662 Office/Outpatient Established Lo w MDM 20-29 Min Completed Medical Devices Description No Information Available Encounters Type Date Location Provider Dx Diagnosis Office Visit 12/07/2020 3:45p [place] Donald Lindsey MD S83.241D Oth tear of medial meniscus, current injury, r knee, subs S83.281D Oth tear of lat mensc, curre nt injury, right knee, subs Office Visit 12/03/2020 4:45p [place] Humberto Noble P.A. M75.41 Impingement syndrome of right shoulder Office Visit 11/05/2020 4:00p [place] Donald Lindsey MD S83.241D Oth tear of medial meniscus, current injury, r knee, subs S83.281D Oth tear of lat mensc, curre nt injury, right knee, subs Office Visit 10/15/2020 9:00a [place] Noble P.A. M75.41 Impingement syndrome of right shoulder Office Visit 10/05/2020 8:30a [place] PA-C S83.241 D Oth tear of medial meniscus, current injury, r knee, subs S83.281D Oth tear of lat mensc, curre nt injury, right knee, subs Office Visit 09/07/2020 11:15a [place] PA-C S83.241 D Oth tear of medial meniscus, current injury, r knee, subs S83.281D Oth tear of lat mensc, curre nt injury, right knee, subs Office Visit 08/31/2020 8:30a [place] Donald Lindsey MD S83.241D Oth tear of medial meniscus, current injury, r knee, subs S83.281D Oth tear of lat mensc, curre nt injury, right knee, subs Office Visit 07/13/2020 4:00p [place] Fatuma Tran.A. M75.41 Impingement syndrome of right shoulder Assessments Date Code Description Provider 01/07/2021 S83.241D Other tear of medial meniscus, [...] P.T. 12/03/2020 M75.41 Impingement syndrome of right jauna Noble, P.A. 11/05/2020 S83.241D Other tear of [...] current injury, right knee, subsequent encounter Gaviota Jones, [facility] 10/02/2020 S83.281D Other tear of latera l meniscus, current injury, right knee, subsequent encounter Gaviota Jones, [facility] 09/27/2020 S83.241D Other tear of medial meniscus, current injury, right knee, subsequent encounter Gaviota Jones, [facility] 09/27/2020 S83.281D Other tear of latera l meniscus, current injury, right knee, subsequent encounter Gaviota Jones, [facility] 09/24/2020 S83.241D Other tear of medial meniscus, current injury, right knee, subsequent encounter Gaviota Jones, [facility] 09/24/2020 S83.281D Other tear of latera l meniscus, current injury, right knee, subsequent encounter Gaviota Jones, [facility] 09/20/2020 S83.241D Other tear of medial meniscus, [...] current injury, right knee, subsequent encounter Stu Madera Cook P.T. 09/10/2020 S83.241D Other tear of medial [...] Lindsey MD 08/28/[address] in assisted as the place of occurrence of the external cause Doanld Lindsey MD 08/23/2020 Z01.818 Encounter for other preprocedura l examination Donald Lindsey MD 08/23/2020 Z01.818 Encounter for other preprocedura l examination Lab 08/23/2020 Z20.828 Contact with and (nagel spected) exposure to other viral communicable diseases Donald Lindsey MD 08/23/2020 Z20.828 Contact with and (nagel spected) exposure to other viral communicable diseases Lab 08/06/2020 S83.241A Other tear of medial meniscus, current injury, right knee, initial encounter Donald Lindsey MD 08/06/2020 S83.281A Other tear of latera l meniscus, current injury, right knee, initial encounter Donald Lindsey MD 07/16/2020 Z20.828 Contact w and exposure to oth vi ral communicable diseases Donald Lindsey MD 07/13/2020 M75.41 Impingement syndrome of right sh chely Justo Tran Plan of Treatment No Information Available Functional Status Description No Information Available Mental Status Description No Information Available Referrals Refer to Dr Reason for Referral Status Appt Date Donald Lindsey MD PT RT KNEE WRITTEN AUTH PASSED TO PT DEPT. Created [address] [facility], [address] [address] [phone] Donald Lindsey MD RT SHOULDER INJ OK TO [facility] PER [facility]. PASS ED TO [facility]. BONG Created [address] [facility], [place] [address] [phone] Humberto Noble PA PT RT KNEE OK TO [facility] 1ST SET AFTER SURGERY. BONG Created [address] [facility] [address] [place] [address] [phone] Humberto Noble PA SURGERY RT KNEE MENISCECTOMY WRITTEN AUTH PASSED TO SURGERY. BONG Created [address] [place] [address] [phone] Humberto Noble PA CRUTCHES OK TO SUPPLY HERE. BONG [place] [address] [phone]
--- OUTSIDE RECORDS SUMMARY | 2021-03-01 07:44 | CCD ---
Continuity of Care Document (CCD) Created on: 01/22/2021 Yan Bill Becerril External Reference #: [id number] : [id number] Sex: Male Author Organization Unknown Address Unknown Phone Unavailable Care Team Providers Care Lab Rep Name Role Phone Raymond Du M.D. AUTM [phone] Problems Active Problems Provider Date Essential hypertension [...] Unknown Patient is a former smoker 1996 Allergies and adverse reactions Description No [...] lb BMI (Body Mass Index) 30.1 kg/m2 Moody Body Weight 166 lb Weight 95.256 kg BSA (Body Surface Area) 2.13 m2 09/12/2014 9:57am BP Systolic 142 mmHg BP Diastolic 77 mmHg Height 70 inches 5'10" Weight 192.00 lb BMI (Body Mass Index) 27.5 kg/m2 Moody Body Weight 166 lb Weight 87.091 kg BSA (Body Surface Area) 2.05 m2 Results Test Acquired Date Facility Test Result H/L Range Note Hemoglobin A1c 01/15/[facility] [address] [place], [place] [id number] [phone] Hemoglobin A1c 6.4 % Normal 1 Estimated Average Glucose 137 mg/dL High 60-110 2 CBC With Differential 01/15/2021 [facility] Main Lab [address] [place], [place] [id number] [phone] White Blood Count 8.3 10 Normal 4.0-10.0 [...] 36.0-66.0 Lymph % 29.4 % Normal 24.0-44.0 Oldham % 7.8 % Normal 2.0-8.0 Eos % 1.2 % Normal 0.0-3.0 Baso % 0.4 % Normal 0.0-1.0 Immature Granulocyte % 0.5 % Normal 0-3.0 Nucleated Red Blood Cell % 0.0 % Normal 0-0 Neutrophils # 5.1 10 Normal 1.5-8.5 Lymph # 2.4 10 Normal 1.5-5.0 Oldham # 0.7 10 Normal 0.0-0.8 Eos # 0.1 10 Normal 0.0-0.5 Baso # 0.0 10 Normal 0.0-0.2 3 Laboratory test finding 01/15/2021 [facility] Main Lab [address] [place] [address] [phone] Erythrocyte Sedimentation Rate 5 mm/hr Normal 0 -20 Comprehensive Metabolic Profil 01/15/2021 [facility] Main Lab [address] [place] [address] [phone] Glucose, Fasting 110 mg/dL High 70-100 Blood [...] Ratio 1.2 Normal 5 Lipid Panel 01/15/2021 [facility] [address] [place] [address] [phone] Triglycerides Level 149 mg/dL Normal <150 Cholesterol Level 198 mg/dL Normal <200 HDL Cholesterol 45 mg/dL Normal >40 LDL Cholesterol 123 mg/dL High <100 Non-HDL-C 153 mg/dL Normal Cholesterol Risk Ratio 4.400 Normal <5 6 Laboratory test finding 01/15/2021 [facility] Main Lab [address] [place] [address] [phone] PTH Intact 37.7 pg/mL Normal 18.5-88.0 7 Total 25(Oh) Vitamin D 27.3 NG/ML Low 30.0-100.0 8 Ferritin 100 NG/ML Normal 26-388 9 C Reactive Protein Quantitativ 0.30 mg/dL Normal 0.00-0.30 10 Gastrointestinal (GI) Panel 01/03/2021 [facility] Main Lab [address] [place] [address] [phone] Gastrointestinal (GI) Panel This Gastrointes <SEE NOTE > 11, 12 Laboratory test finding 01/03/2021 [facility] Main Lab [address] [place] [address] [phone] Calprotectin Stool 139 ug/g High 0-120 13 , 14 Pancreatic Elastase Stool >500 Normal >200 15 , 16 Fat Fecal Total Stool Sendout 01/03/2021 [facility] Main Lab [address] [place] [address] [phone] Fats Neutral Normal Normal . 17 Fats Total Normal Normal . 18, 19 FT4&TSH Panel 01/01/2021 [facility] [address] [place] [address] [phone] Thyroid Stimulating Hormone 0.950 uIU/ML Normal 0. 358-3.740 Free T4 1.14 ng/dL Normal 0.76-1.46 20 Laboratory test finding 01/01/2021 [facility] Main Lab [address] [place] [address] [phone] Tissue Transglutaminase IgA <2 U/mL Normal 0-3 21 Immunoglobulin A 293.0 mg/dL Normal 70-400 22 1 REFERENCE RANGES: <=5.6% NORMAL 5.7-6.4% SUGGESTS IMPAIRED GLUCOSE META BOLISM/PREDIABETIC >= 6.5% ABNORMAL 2 01/22/21 (ThuJan 22) 11:33 A M NERIS CHARLEBOIS Ordered by PCP. 3 01/22/21 (ThuJan 22) 11:33 A M NERIS CHARLEBOIS Ordered by PCP. 4 Units are mL/min/1.73 m2 Chronic Kidney Disease Staging per NKF: Stage I & II GFR >=60 Normal to Mildly Decreased Stage III GFR 30-59 Moderately Decreased Stage IV GFR 15-29 Severely Decreased Stage V GFR <15 Very Little GFR Left ESRD GFR <[address] [place] 5 01/22/21 (ThuJan 22) 11:34 A M [...] Abnormal Repeat as clinically indicated Performed at: [facility] [address] [id number] Geological Scout: Jalyn Leija MD, Phone: [phone] Performed at: [address] [id number] Geological Scout: Zack Virk MD, Phone: [phone] 14 01/22/21 (ThuJan 22) 11:37 A M NERIS CHARLEBOIS Elevated. Will inform patient. See triage. 15 Result Units: ug Elast./g Severe Pancreatic Insufficiency: <100 Moderate Pancreatic Insufficiency: 100 - 200 Normal: >200 16 01/22/21 (ThuJan 22) 11:37 A M NERIS CHARLEBOIS Normal. 17 Normal (<60 Droplets/HPF) This test was developed and its performance characteristics determined by [facility]. It has not been cleared or approved by the Food and Drug Administration. 18 Normal (<100 Droplets/HPF) This test was developed and its performance characteristics determined by [facility]. It has not been cleared or approved [...] specificity for gluten sensitive enteropathy. Performed at: [address] [id number] Geological Scout: Jalyn Leija MD, Phone: [phone] 22 01/22/21 (ThuJan 22) 11:25 A M NERIS CHARLEBOIS Celiac marker is normal. Procedures Date Code Description Status 01/01/2021 02091 Office/Outpatient New Moderate M DM 45-59 Minutes Completed Medical Devices Description No Information Available Encounters Type Date Location Provider Dx Diagnosis Office Visit 01/01/2021 3:00p [facility] Gastroenterology Pra ctice Neris A Eliezer, RPA-C R10.13 Epigastric pain K21.9 Gastro-esophageal reflux dis ease without esophagitis R19.8 Oth symptoms and signs invol ving the dgstv sys and abdomen R14.0 Abdominal distension (gaseou s) Assessments Date Code Description Provider 01/01/2021 R10.13 Epigastric pain Neris Negro SARBJIT turner 01/01/2021 K21.9 Gastro-esophageal reflux disease without esophagitis Neris A SARBJIT Martins 01/01/2021 R19.8 Other specified symp toms and signs involving the digestive system and abdomen Neris A SARBJIT Martins 01/01/2021 R14.0 Abdominal distension (gaseous) M blake Nevarez SARBJIT Martins Plan of Treatment 01/01/2021 - Neris Geri SARBJIT Martins* R10.13 Epigastric pain * K21.9 Gastro-esophageal reflux [...] Cristian Molina M.D. EPIGASTRIC PAIN Scheduled 11/07/2020 [facility], Gastroenterology [address] [facility], [address] [place] [address] [phone]
--- OUTSIDE RECORDS SUMMARY | 2021-03-01 07:44 | CCD | Continuity of Care Document ---
Author Author Bill BERGERON P.T. Organization Unknown Address [address] [place] [address] Phone [phone] Care Team Providers Care External Grinder Tool Name Role Phone Raymond Du MD AUTM [phone] Raymond Du MD AUTM [phone] Problems Description No Information Available Social History [...] Testing Negative Procedures Date Code Description Status 01/01/2021 49651 Therapeutic Procedure, Each 15 M inutes Completed 01/01/2021 22051 Electrical Stimulati on Manual, Each 15 Min, Constant Attendance Completed 01/01/2021 08154 Therapeutic Procedure, Each 15 M inutes Completed 12/26/2020 08704 Therapeutic Procedure, Each 15 M inutes Completed 12/26/2020 09051 Therapeutic Procedure, Each 15 M inutes Completed 12/26/2020 94650 Electrical Stimulati on Manual, Each 15 Min, Constant Attendance Completed 12/19/2020 34996 Therapeutic Procedure, Each 15 M inutes Completed 12/19/2020 34718 Therapeutic Procedure, Each 15 M inutes Completed 12/19/2020 79158 Electrical Stimulati on Manual, Each 15 Min, Constant Attendance Completed 12/19/2020 63005 Hot Or Cold Packs Completed 12/13/2020 92964 Hot Or Cold Packs Completed 12/13/2020 93050 Electrical Stimulati on Manual, Each 15 Min, Constant Attendance Completed 12/13/2020 13337 Therapeutic Procedure, Each 15 M inutes Completed 12/13/2020 76365 Therapeutic Procedure, Each 15 M inutes Completed 12/11/2020 80100 Therapeutic Procedure, Each 15 M inutes Completed 12/11/2020 15461 Therapeutic Procedure, Each 15 M inutes Completed 12/11/2020 55316 Electrical Stimulati on Manual, Each 15 Min, Constant Attendance Completed 12/11/2020 18740 Hot Or Cold Packs Completed 12/07/2020 81488 Office/Outpatient Established Lo w MDM 20-29 Min Completed 12/04/2020 76824 Re-Eval Of PT Establ ished Plan Of Care 20Mins Face To Face PT/Fam Completed 12/04/2020 65565 Therapeutic Procedure, Each 15 M inutes Completed 12/04/2020 34702 Therapeutic Procedure, Each 15 M inutes Completed 12/03/2020 58681 Office/Outpatient Established Lo w MDM 20-29 Min Completed 10/15/2020 53616 Office/Outpatient Established Lo w MDM 20-29 Min Completed 10/10/2020 42681 Hot Or Cold Packs Completed 10/10/2020 91644 Electrical Stimulati on Manual, Each 15 Min, Constant Attendance Completed 10/10/2020 75615 Therapeutic Procedure, Each 15 M inutes Completed 10/10/2020 55523 Re-Eval Of PT Establ ished Plan Of Care 20Mins Face To Face PT/Fam Completed 10/10/2020 51274 Therapeutic Procedure, Each 15 M inutes Completed 10/05/2020 57467 Therapeutic Procedure, Each 15 M inutes Completed 10/05/2020 27605 Therapeutic Procedure, Each 15 M inutes Completed 10/05/2020 05061 Electrical Stimulati on Manual, Each 15 Min, Constant Attendance Completed 10/05/2020 38347 Hot Or Cold Packs Completed 10/02/2020 48058 Therapeutic Procedure, Each 15 M inutes Completed 10/02/2020 40282 Hot Or Cold Packs Completed 10/02/2020 18239 Electrical Stimulati on Manual, Each 15 Min, Constant Attendance Completed 10/02/2020 99484 Therapeutic Procedure, Each 15 M inutes Completed 09/27/2020 49253 Therapeutic Procedure, Each 15 M inutes Completed 09/27/2020 45836 Therapeutic Procedure, Each 15 M inutes Completed 09/27/2020 93687 Electrical Stimulati on Manual, Each 15 Min, Constant Attendance Completed 09/27/2020 25608 Hot Or Cold Packs Completed 09/24/2020 14337 Therapeutic Procedure, Each 15 M inutes Completed 09/24/2020 81217 Hot Or Cold Packs Completed 09/24/2020 01403 Electrical Stimulati on Manual, Each 15 Min, Constant Attendance Completed 09/24/2020 96188 Therapeutic Procedure, Each 15 M inutes Completed 09/20/2020 64666 Therapeutic Procedure, Each 15 M inutes Completed 09/20/2020 42061 Therapeutic Procedure, Each 15 M inutes Completed 09/20/2020 29704 Electrical Stimulati on Manual, Each 15 Min, Constant Attendance Completed 09/20/2020 16612 Hot Or Cold Packs Completed 09/14/2020 32829 Therapeutic Procedure, Each 15 M inutes Completed 09/14/2020 56121 Therapeutic Procedure, Each 15 M inutes Completed 09/14/2020 36010 Electrical Stimulati on Manual, Each 15 Min, Constant Attendance Completed 09/14/2020 04564 Hot Or Cold Packs Completed 09/10/2020 80389 Physical Therapy Eval - Low Comp lexity Completed 08/28/2020 90098 Arthroscopy Knee W/M eniscectomy Inc Chondroplasty (Med & Lateral) Completed 07/13/2020 49418 Office/Outpatient Established Lo w MDM 20-29 Min Completed Medical Devices Description No Information Available Encounters Type Date Location Provider Dx Diagnosis Office Visit 12/07/2020 3:45p [place] MD S83.241D Oth tear of medial meniscus, current injury, r knee, subs S83.281D Oth tear of lat mensc, curre nt injury, right knee, subs Office Visit 12/03/2020 4:45p [place] Noble, P.A. M75.41 Impingement syndrome of right shoulder Office Visit 11/05/2020 4:00p [place] Lindsey MD S83.241D Oth tear of medial meniscus, current injury, r knee, subs S83.281D Oth tear of lat mensc, curre nt injury, right knee, subs Office Visit 10/15/2020 9:00a [place], P.A. M75.41 Impingement syndrome of right shoulder Office Visit 10/05/2020 8:30a [place] PA-C S83.241 D Oth tear of medial meniscus, current injury, r knee, subs S83.281D Oth tear of lat mensc, curre nt injury, right knee, subs Office Visit 09/07/2020 11:15a [place] PA-C S83.241 D Oth tear of medial meniscus, current injury, r knee, subs S83.281D Oth tear of lat mensc, curre nt injury, right knee, subs Office Visit 08/31/2020 8:30a [place] Lindsey MD S83.241D Oth tear of medial meniscus, current injury, r knee, subs S83.281D Oth tear of lat mensc, curre nt injury, right knee, subs Office Visit 07/13/2020 4:00p [place] Hyde. M75.41 Impingement syndrome of right shoulder Assessments Date Code Description Provider 01/01/2021 S83.241D Other tear of medial meniscus, [...] MD 10/15/2020 M75.41 Impingement syndrome of right chelybang Humberto Noble, P.A. 10/10/2020 S83.241D Other tear of [...] meniscus, current injury, right knee, subsequent encounter Shipla Lindsey PA-C 10/05/2020 S83.281D Other tear of latera l meniscus, current injury, right knee, subsequent encounter Олег Tony, PT, DPT 10/05/2020 S83.281D Other tear of latera l meniscus, current injury, right knee, subsequent encounter Shilpa Lindsey PA-C 10/02/2020 S83.241D Other tear of medial meniscus, current injury, right knee, subsequent encounter [facility], [facility] 10/02/2020 S83.281D Other tear of latera l meniscus, current injury, right knee, subsequent encounter Gaviota Jones, MSPT 09/27/2020 S83.241D Other tear of medial meniscus, current injury, right knee, subsequent encounter Gaviota Jones, [facility] 09/27/2020 S83.281D Other tear of latera l meniscus, current injury, right knee, subsequent encounter Gaviota Jones, [facility] 09/24/2020 S83.241D Other tear of medial meniscus, current injury, right knee, subsequent encounter Gaviota Jones, [facility] 09/24/2020 S83.281D Other tear of latera l meniscus, current injury, right knee, subsequent encounter [facility]aviota Jones, [facility] 09/20/2020 S83.241D Other tear of medial meniscus, [...] Lindsey MD 08/28/[address] [facility] of occurrence of the external cause Donald Lindsey MD 08/23/2020 Z01.818 Encounter for [...] 07/13/2020 M75.41 Impingement syndrome of right [facility] Galen Tran. Plan of Treatment Future Appointment(s):* 01/15/2021 9:00 am - ALY Lamb at Physical Therapy * 01/07/2021 3:30 pm - Stu Bergeron P.T. at Physical Therapy Functional Status Description No Information Available Mental Status Description No Information Available Referrals Refer to Reason for Referral Status Appt Date Donald Lindsey MD PT RT KNEE WRITTEN AUTH PASSED TO PT DEPT. LS Created [facility], [address] [place] [address] [phone] Donald Lindsey MD RT SHOULDER INJ OK TO [facility] PER MTGS. PASS ED TO JAYLEEN. BONG Created [address] [facility], [address] [place] [address] [phone] Humberto Noble PA PT RT KNEE OK TO [facility] 1ST SET AFTER SURGERY. BONG Created [facility] [address] [place] [address] [phone] Humberto Noble PA SURGERY RT KNEE MENISCECTOMY WRITTEN AUTH PASSED TO SURGERY. BONG Created [address] [facility] [address] [place] [address] [phone] Humberto Noble PA CRUTCHES OK TO SUPPLY HERE. BONG Create d [facility] [address] [place] [address] [phone]
--- OUTSIDE RECORDS SUMMARY | 2021-03-01 07:44 | CCD | Continuity of Care Document ---
Author Author Bill BERGERON P.T. Organization Unknown Address [address] [place] [address] Phone [phone] Care Team Providers Care Gang Hemstitching Machine Operator Name Role Phone Raymond Du MD AUTM [phone] Raymond Du MD AUTM [phone] Problems Description No Information Available Social History [...] Negative Procedures Date Code Description Status 01/01/2021 40842 Therapeutic Procedure, Each 15 M inutes Completed 01/01/2021 12203 Electrical Stimulati on Manual, Each 15 Min, Constant Attendance Completed 01/01/2021 06930 Therapeutic Procedure, Each 15 M inutes Completed 12/26/2020 05385 Therapeutic Procedure, Each 15 M inutes Completed 12/26/2020 96099 Therapeutic Procedure, Each 15 M inutes Completed 12/26/2020 03973 Electrical Stimulati on Manual, Each 15 Min, Constant Attendance Completed 12/19/2020 74961 Therapeutic Procedure, Each 15 M inutes Completed 12/19/2020 76555 Therapeutic Procedure, Each 15 M inutes Completed 12/19/2020 19155 Electrical Stimulati on Manual, Each 15 Min, Constant Attendance Completed 12/19/2020 20018 Hot Or Cold Packs Completed 12/13/2020 70182 Hot Or Cold Packs Completed 12/13/2020 12667 Electrical Stimulati on Manual, Each 15 Min, Constant Attendance Completed 12/13/2020 02037 Therapeutic Procedure, Each 15 M inutes Completed 12/13/2020 52449 Therapeutic Procedure, Each 15 M inutes Completed 12/11/2020 10739 Therapeutic Procedure, Each 15 M inutes Completed 12/11/2020 50099 Therapeutic Procedure, Each 15 M inutes Completed 12/11/2020 31706 Electrical Stimulati on Manual, Each 15 Min, Constant Attendance Completed 12/11/2020 29065 Hot Or Cold Packs Completed 12/07/2020 07450 Office/Outpatient Established Lo w MDM 20-29 Min Completed 12/04/2020 16169 Re-Eval Of PT Establ ished Plan Of Care 20Mins Face To Face PT/Fam Completed 12/04/2020 86517 Therapeutic Procedure, Each 15 M inutes Completed 12/04/2020 94210 Therapeutic Procedure, Each 15 M inutes Completed 12/03/2020 45773 Office/Outpatient Established Lo w MDM 20-29 Min Completed 10/15/2020 60333 Office/Outpatient Established Lo w MDM 20-29 Min Completed 10/10/2020 40290 Hot Or Cold Packs Completed 10/10/2020 48964 Electrical Stimulati on Manual, Each 15 Min, Constant Attendance Completed 10/10/2020 07973 Therapeutic Procedure, Each 15 M inutes Completed 10/10/2020 23652 Re-Eval Of PT Establ ished Plan Of Care 20Mins Face To Face PT/Fam Completed 10/10/2020 23326 Therapeutic Procedure, Each 15 M inutes Completed 10/05/2020 96371 Therapeutic Procedure, Each 15 M inutes Completed 10/05/2020 13674 Therapeutic Procedure, Each 15 M inutes Completed 10/05/2020 56595 Electrical Stimulati on Manual, Each 15 Min, Constant Attendance Completed 10/05/2020 07638 Hot Or Cold Packs Completed 10/02/2020 66156 Therapeutic Procedure, Each 15 M inutes Completed 10/02/2020 70763 Hot Or Cold Packs Completed 10/02/2020 29614 Electrical Stimulati on Manual, Each 15 Min, Constant Attendance Completed 10/02/2020 60187 Therapeutic Procedure, Each 15 M inutes Completed 09/27/2020 08640 Therapeutic Procedure, Each 15 M inutes Completed 09/27/2020 00760 Therapeutic Procedure, Each 15 M inutes Completed 09/27/2020 15838 Electrical Stimulati on Manual, Each 15 Min, Constant Attendance Completed 09/27/2020 96612 Hot Or Cold Packs Completed 09/24/2020 58150 Therapeutic Procedure, Each 15 M inutes Completed 09/24/2020 21525 Hot Or Cold Packs Completed 09/24/2020 13310 Electrical Stimulati on Manual, Each 15 Min, Constant Attendance Completed 09/24/2020 10822 Therapeutic Procedure, Each 15 M inutes Completed 09/20/2020 53263 Therapeutic Procedure, Each 15 M inutes Completed 09/20/2020 72094 Therapeutic Procedure, Each 15 M inutes Completed 09/20/2020 88601 Electrical Stimulati on Manual, Each 15 Min, Constant Attendance Completed 09/20/2020 24886 Hot Or Cold Packs Completed 09/14/2020 30990 Therapeutic Procedure, Each 15 M inutes Completed 09/14/2020 79624 Therapeutic Procedure, Each 15 M inutes Completed 09/14/2020 67224 Electrical Stimulati on Manual, Each 15 Min, Constant Attendance Completed 09/14/2020 38193 Hot Or Cold Packs Completed 09/10/2020 83130 Physical Therapy Eval - Low Comp lexity Completed 08/28/2020 67242 Arthroscopy Knee W/M eniscectomy Inc Chondroplasty (Med & Lateral) Completed 07/13/2020 51127 Office/Outpatient Established Lo w MDM 20-29 Min Completed Medical Devices Description No Information Available Encounters Type Date Location Provider Dx Diagnosis Office Visit 12/07/2020 3[place]p [place] S83.241D Oth tear of medial meniscus, current injury, r knee, subs S83.281D Oth tear of lat mensc, curre nt injury, right knee, subs Office Visit 12/03/2020 4:45p [place], P.A. M75.41 Impingement syndrome of right shoulder Office Visit 11/05/2020 4:00p [place] MD S83.241D Oth tear of medial meniscus, current injury, r knee, subs S83.281D Oth tear of lat mensc, curre nt injury, right knee, subs Office Visit 10/15/2020 9:00a [place], P.A. M75.41 Impingement syndrome of right shoulder Office Visit 10/05/2020 8:30a [place] PA-C S83.241 D Oth tear of medial meniscus, current injury, r knee, subs S83.281D Oth tear of lat mensc, curre nt injury, right knee, subs Office Visit 09/07/2020 11:15a [place] PA-C S83.241 D Oth tear of medial meniscus, current injury, r knee, subs S83.281D Oth tear of lat mensc, curre nt injury, right knee, subs Office Visit 08/31/2020 8:30a [place] MD S83.241D Oth tear of medial meniscus, current injury, r knee, subs S83.281D Oth tear of lat mensc, curre nt injury, right knee, subs Office Visit 07/13/2020 4:[place]p [place]. M75.41 Impingement syndrome of right shoulder [...] injury, right knee, subsequent encounter [facility] Jones, [facility] 10/02/2020 S83.281D Other tear of latera l meniscus, current injury, right knee, subsequent encounter Gaviota Jones, MSPT 09/27/2020 S83.241D Other tear of medial meniscus, current injury, right knee, subsequent encounter Gaviota Jones, [facility] 09/27/2020 S83.281D Other tear of latera l meniscus, current injury, right knee, subsequent encounter Gaviota Jones, [facility] 09/24/2020 S83.241D Other tear of medial meniscus, current injury, right knee, subsequent encounter Gaviota Jonse, [facility] 09/24/2020 S83.281D Other tear of latera l meniscus, current injury, right knee, subsequent encounter Gaviota Jones, [facility] 09/20/2020 S83.241D Other tear of [...] Lindsey MD 08/28/[address] in residential as the place of occurrence of the [...] MD 07/13/2020 M75.41 [facility] Plan of Treatment Future Appointment(s):* 01/15/2021 9:00 am - ALY Lamb at Physical Therapy Functional Status Description No Information Available Mental Status Description No Information Available Referrals Refer to Dr Reason for Referral Status Appt Date Donald Lindsey MD PT RT KNEE WRITTEN AUTH PASSED TO PT DEPT. BONG Created [facility], [address] [place] [address] [phone] Donald Lindsey MD RT SHOULDER INJ OK TO [facility] PER MTGS. PASS ED TO JAYLEEN. BONG Created [address] [place] [address], [address] [place] [address] [phone] Humberto Noble PA PT RT KNEE OK TO [place] 1ST SET AFTER SURGERY. BONG Created [facility] [address] [place] [address] [phone] Humberto Noble PA SURGERY RT KNEE MENISCECTOMY WRITTEN AUTH PASSED TO SURGERY. BOGN Created [facility] [address] [place] [address] [phone] Humberto Noble PA CRUTCHES OK TO SUPPLY HERE. BONG Create d [facility] [place] [address] [phone]
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
--- OUTSIDE RECORDS SUMMARY | 2021-03-01 07:44 | CCD ---
Author Author [facility] Organization [facility] Address Unknown Phone Unavailable Care Team Providers Care Rn Family Name Role Phone Raymond Du Unavailable PROBLEMS Type Condition ICD9-CM Code RTX09-WA Code Onset Dates Condition S tatus W/U Status Risk SNOMED Code Notes Problem PUD (peptic ulcer disease) K27.9 Active confirmed 15319213 Problem Ankylosing spondylitis M45.9 Active confirmed 1190109 Problem Sialolithiasis K11.5 Active confirmed 11425 002 Problem Type 2 diabetes mellitus without complications E11 .9 Active confirmed 399602562 Problem Hyperlipidemia E78.5 Active confirmed 67305 004 Problem IBS (irritable bowel syndrome) K58.9 Active confir med 04701258 Problem Non-seasonal allergic rhinitis, unspecified leonardo rgic rhinitis trigger J30.89 Active confirmed 98140504 Problem Open-angle glaucoma of both eyes H40.10X0 Active confirmed [id number] Problem Overweight E66.3 Active confirmed 598224411 Problem Prostate cancer screening Z12.5 Active confirmed 050778045 Problem Essential (primary) hypertension I10 Active conf irmed 94089267 Problem Seborrheic dermatitis L21.9 Active confirmed 42687634 Problem Other eczema L30.8 Active confirmed 7077040 0 Problem Vitamin D deficiency E55.9 Active confirmed 77856908 Problem NAFLD (nonalcoholic fatty liver disease) K76.0 Active confirmed 451431827 ALLERGIES Allergen (clinical drug ingredient) Drug/Non Drug Allergy do cumented on EMR Reaction Allergy Type Onset Date Status adhesive tape rash Non Drug Allergy Activ e ENCOUNTERS from 1970 to 2021-01-15 Encounter Location Date Provider Diagnosis [address] [phone] [place] [address] 24 Dec, 2020 Raymond Du Type 2 diabetes mellitus wit hout complications E11.9 ; Impingement syndrome, shoulder, right M75.41 ; Ankylosing spondylitis M45.9 ; NAFLD (nonalcoholic fatty liver disease) K76.0 ; IBS (irritable bowel syndrome) K58.9 ; Diarrhea of infectious origin A09 ; Essential (primary) hypertension I10 ; Prostate cancer screening Z12.5 ; Sialolithiasis K11.5 ; PUD (peptic ulcer disease) K27.9 ; Hyperlipidemia E78.5 ; Overweight E66.3 ; Non-seasonal allergic rhinitis, unspecified allergic rhinitis trigger J30.89 ; Seborrheic dermatitis L21.9 ; Other eczema L30.8 ; Vitamin D deficiency E55.9 and Open-angle glaucoma of both eyes H40.10X0 IMMUNIZATIONS Vaccine Route Administration Date Status Influenza [...] COVID-19 dose #1 given elsewhere Unspecified Unknown [facility] 2020 Administered Influenza 6mo & up Fluzone IM Intramuscular Jan 08, 2015 Admi nistered COVID-19 dose #2 given elsewhere Unspecified Unknown [facility] 2020 Administered Influenza 6mo & up Fluzone [...] Education Language: Question Answer Notes Languages spoken: Swedish Voodoo: Question Answer Notes Voodoo 12 Yazidi Sexual Hx: Question Answer Notes Had sex [...] REASON FOR REFERRAL No Information VITAL SIGNS Weight 214 lbs Dec, Weight-kg 97.07 kg Dec, Height 70 in Dec, BMI 30.70 kg/m2 Dec, Heart Rate 78 /min Dec, Respiratory Rate 20 /min Dec, Temperature 97.7 degrees Fahrenheit Dec, Oximetry 97% Dec, Blood pressure systolic 132 mm Hg Dec, Blood pressure diastolic 80 mm Hg Dec, MEDICATIONS Medication SIG (Take, Route, Frequency, Duration) Notes Start Da te End Date Status One Touch Verio Strips Gold Strips [address] Me [address] Twice a day before meals Active Ergocalciferol 61078 UNIT 1 capsule Orally every 7 days [...] Information RESULTS No Results REASON FOR VISIT 4 month f/u MEDICAL (GENERAL) HISTORY Type Description Date Medical History hypertension- NST low risk-Green /August 2010 TTE-LAE 4.0 cm, diastolic dysfunction-Green Medical History paroxysmal SVT, suspect Bboh-Icayqg-Ugzd ne syndrome Medical History hyperlipidemia 2B Medical History NAFLD-normal work of 2007/normal liver ultrasound June 2007/August 2010 FS [...] B 27 positive/L sacroiliitis by 11/2010 MRI pelvis-Walker Medical History eczema Medical History panic disorder [...] B shoulder impignement syndrome, R cuff repair 2006 Surgical History R shoulder arthroscopic-Setter 2005 Surgical History B knee arthroscopic Surgical History right eye laser surgery Dr camp 2012 Surgical History laproscopic cholecystectomy c intraoperative cholangiogram 2 chronic cholecystitis by pathology-Mark 10/12/2013 Surgical History [facility] 08/2018 Surgical History 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 10/29 /2020 Surgical History right knee arthroscopy 08/28/2020 Hospitalization History surgery related Goals Section No Information Health Concerns No Information MEDICAL EQUIPMENT No Information MENTAL STATUS No Information FUNCTIONAL STATUS No Information ASSESSMENTS Encounter Date Diagnosis Assessment Notes Treatment Notes Treatm ent Clinical Notes Dec, Type 2 diabetes mellitus without complications ( ICD-10 - E11.9) C: restart dulag given Rybelsus intolerance, FSL2 09/03/20 AD held Rybellys 14 given severe dyspepsia c resolution 07/05/20 chagned to dulag 1.5 q7D to Rybelsus 7 qAM (start day he was to take dulag)-per px request so that he doesn't have to given injeciton, then to 14 if tolerating in 2-3W, then FSLP (agrees to do now bc off work 2 R meinscal tear) 07/16/20 5.8 08/2018 5.6 02/2018 5.3 06/2017 5.0; therefore, metformin 850 AC zoey/din to XR 750 AC dinner given diarrhea p AC zoey dose 06/2016 changed Victoza 1.8 to Trulicity 1.5 qW 01/2016 5.5 01/17/16 restarted metformin XR [address] of Jardiance 10 qAM in attempt to lower AC breakfast BS 11/2015 Jardiance 10 qAM started but $300 qM and no obvious benefit per patient 02/2014 changed Victoza 1.8 to Invokana 300 qAM given weight gain c Victoza and desire to avoid injection but increased HBSs on it s weight loss, therefore changed back to Victoza 1.8 03/09/21 9 02/2018 5 09/2016 5 08/2015 6 05/2012 8 08/2011 DANICA/creatinine 4 Dec, Impingement syndrome, shoulder, right (ICD-10 - M75.41) chronic B shoulder impignement syndrome, R cuff RC repair 2005-Sandi Contingency: Setter opinion 05/05/19 R shoulder 40 TA 10/23/17 4W flare; therefor,e TA 40 and checked MRI shoulder given over last 2Y inability to abduct >90 09/01/16 given R overuse flare x ~5W, 40 Kenalog-advised home PT/ROM Dec, Ankylosing spondylitis (ICD-10 - M45.9) Patient understands to call office [facility] if he experiences any fever, chills, abdominal pain, urinary symptoms or illness given that his immune system is suppressed with secukinumab 07/16/20 - TB Gold / 03/09/20 -hep B/C C: meets 2010 ASAS criteria: HLA-B27 + c good NSAID response, inflammatory back pain, (h/o L SI by 11/2010 pelvic MRI) (no FH, uveitis, enthesitis, IBD, psoriasis, dactylitis) 07/16/20 0.3/8, WBC 8.8 c stable minimal disease activity 10/18/19 marked improvment allison of nocturnal inflammatory back pain p load 05/05/19 given since ~10/2018 increased paracervical/lumbar stiffness, 09/19/19 changed etanercept 50 q7D to secukinumab (IL-17a) loaded 150 SC qW x 5, then q4W 08/2018 CRP 2.315 02/2018 <0.3/3 04/03/17 given progressive loss of benefit c adalimumab since ~09/2016 (p ~18M use), changed to etanercept 50 qW in 04/217 and increased deandre 200 QD to BID 02/2017 <0.3/4 04/02/15 started Humira 40 SC q2W with inflammatory cervical/lumbar pain by 06/2015-able to sleep through qhs 01/08/15 given persistent severe symptoms despite high dose NSAID, plan starting adalimumab (Humira) 40 SC q2W p resolution of sialolithiasis. Patient assumes increased risk of infection and increased leukemia/lymphoma risk. 11/30/14 CRP <0.3, ESR 4, increased to 200 BID c minimal improvement, therefore decreased back to QD 10/2014 restarted Celebrex 200 QD c mild improvement 07/27/14 MRI SI joint s abnormal signal of joint and bone marrow (no bone marrow edema) nor fracture 07/07/14 c/t/l spine and SI xray c mild DSN of all cervical and lumbar levels, allison L5/1 c slight progression c/w 04/2009, otherwise normal 06/2014 - indirect SAIGE, CCP 5, ESR 7, CRP 0.4 had infliximib x 2 infusions in 11/2010-then held by [facility] patient states 2 no improvement (but not really given adequate trial) Dec, NAFLD (nonalcoholic fatty liver disease) (ICD-10 - K76.0) Encouraged ADA diet/weight loss 09/2018 liver US c steatosis s focal lesion 07/16/20 normal LFTs 05/16/19 AFP 5 05/16/19 PT/PTT 14/33 05/16/19 GAFFNEY: F0/S3 Dec, IBS (irritable bowel syndrome) (ICD-10 - K58.9) IBS-D triggers: EthOH, coffee 10/10/15 Xifaxan 550 TID x 14D resolved diarrhea 08/2015 given - w/u as below, started Bentyl 10 QID which helped for 1M, then lost effectiveness 06/2015 flare c metformin trial x 3W 09/2015 CRp 0.3/ESR 11 09/2015 - TTG, chromogranin A 3 (0-5), - GI panel 09/2015 - IBD serology panel Dec, Diarrhea of infectious origin (ICD-10 - A09) EGD/colon P c Dr. 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) similar to 08/15/10 Dec, Prostate cancer screening (ICD-10 - Z12.5) No LUTs 07/16/20 baseline PSA 0.5 Dec, Sialolithiasis (ICD-10 - K11.5) No recurrent symptoms No subjective dry mouth/eyes sx 01/18/15 CT MF s contrast minimal sinus mucosal thickening but normal B salivary glands s sialolithiasis 12/2014 advise moist heat to submandibular gland, milk duct R [place]'s duct, start lemon drops aid in passage, rxed c cephalexin QID x 10D for possible sialadenitis given tenderness, checked CT to determine extent of stone (results as above), rx c resolved swelling/pain in 3D and spontaneous passage in 4W Dec, PUD (peptic ulcer disease) (ICD-10 - K27.9) Patient remains asymptomatic on panto 40 BID/caution c chronic NSAID 10/2014 restarted Protonix 40 BID given ~3x qW JOJO and given starting Celebrex 200 QD as per 10/09/14 EGD/qsjmf-K-wgycxeg gastritis c minimal chronic gastritis by biopsy, -H pylori; therefore R favored IBS and started Levsin 0.125 SL q4H prn (which does help) and stopped Protonix 40 BID, Zantac 150 QD, and Carafate 1 TID 07/2014 given persistent anorexia, mild dyspepsia, repeat EGD, ? IBD c 05/23/14 held nambutone as per and added Carafate 1 AC TID and d/hector coffee 24 oz daily, hemoglobin stable at 15.0 c 35%, 174 s supplement c improved symptoms 08/2013 Zantac [address] Darian douglas 08/2013 EGD showed multiple gastric ulcers 07/2013 Prilosec 20 QD changed to Protonix 40 BID and Carafate 1 gm QID and Mobic 15 held added by ML 07/2014 given persistent anorexia, mild dyspepsia, repeat EGD, ? IBD c 05/2014 - H pylori Ab 05/23/14 held nambutone as per and added Carafate 1 AC TID and d/hector coffee 24 oz daily, hemoglobin stable at 15.0 c 35%, 174 s supplement c improved symptoms 08/2013 Zantac [address] Darian douglas 08/2013 EGD showed multiple gastric ulcers 07/2013 Prilosec 20 QD changed to Protonix 40 BID and Carafate 1 gm QID and Mobic 15 held added by ML Dec, Hyperlipidemia (ICD-10 - E78.5) Continue dietary control RF: DM2, prior nicotine use, hypertension, father c [place] in late 50s 03/09/20 109/41/135 05/16/19 103/33/100 06/2017 102/41/72, 79, <0.3 02/2017 115/43/54, 67, <0.3 04/2015 105/38/86 03/2014 120/41/158, CRP <0.3 c 10Y ASCVD risk 4.0% (lifetime 69%), therefore statin offered but deferred 05/2012 102/37/181, LDL size 20.1, CRP <0.3 12/2011 147/35/136 08/2010 lipids of 117/34/126 05/16/19 1.2, 1.1 06/2017 1.0, 1.1 01/2016 1.2, FT4 1.1 03/2014 TSH 1.0 Dec, Overweight (ICD-10 - E66.3) Encouraged weight loss Dec, Non-seasonal allergic rhinit is, unspecified allergic rhinitis trigger (ICD-10 - J30.89) Stable on FP 2 qAM Dec, Seborrheic dermatitis (ICD-10 - L21.9) Stable BID x 10D c flares of B eyebrows Dec, Other eczema (ICD-10 - L30.8) Stable on fluticasone 0.05% BID to B flank/thighs plaques c flares Dec, Vitamin D deficiency (ICD-10 - E55.9) 03/09/20 28, 9.3, 22; therefore, restarted D2 50K q7D 06/2017 vitamin D 47, 8.7, PTH 29 on D2 50K q7D Dec, Open-angle glaucoma of both eyes (ICD-10 - H40.1 0X0) follows with Dr. Lowe Dec, Other Patient refuses flu despite TNFi rx PLAN OF TREATMENT Medication Medication Name Sig [...] days wtih flares for 90 day(s) Ergocalciferol 45003 UNIT 1 capsule Orally every 7 days for 90 d ay(s) Celecoxib 200 MG 1 capsule Orally bid for 90 day(s) Cosentyx 150 MG/ML 1 ml Subcutaneous every week x 5 weeks, then ever 28 days for 90 days Treatment Notes Assessment Notes Clinical Notes Seborrheic dermatitis Stable BID x 10D c flares of B eyebrows Type 2 diabetes mellitus without complications C: restart dulag given Rybelsus intolerance, FSL AD held Rybellys 14 given severe dyspepsia c resolution07/05/20 chagned to dulag 1.5 q7D to Rybelsus 7 qAM (start day he was to take dulag)-per px request so that he doesn't have to given injeciton, then to 14 if tolerating in 2-3W, then FSLP (agrees to do now bc off work 2 R meinscal tear)07/16/20 5. 5.611/2017 5. 5.0; therefore, metformin 850 AC zoey/din to XR 750 AC dinner given diarrhea p AC zoey dose06/2016 changed Victoza 1.8 to Trulicity 1.5 qW01/2016 5.59/16 restarted metformin XR [address] of Jardiance 10 qAM in attempt to lower AC breakfast BS11/2015 Jardiance 10 qAM started but $300 qM and no obvious benefit per yukgogc94/2014 changed Victoza 1.8 to Invokana 300 qAM given weight gain c Victoza and desire to avoid injection but increased HBSs on it s weight loss, therefore changed back to Victoza 1.811/20/21 9104/2017 DANICA/creatinine 4 Non-seasonal allergic rhinitis, unspecified allergic rhiniti s trigger Stable on FP 2 qAM Impingement syndrome, shoulder, right ch ronic B shoulder impignement syndrome, R cuff RC repair 2005-SetterContingency: Setter opinion05/05/19 R shoulder 40 TA7/10/05 4W flare; therefor,e TA 40 and checked MRI shoulder given over last 2Y inability to abduct >905/ given R overuse flare x ~5W, 40 Kenalog-advised home PT/ROM Vitamin D deficiency 03/09/20 28, 9.3, 2 2; therefore, restarted D2 50K q7 vitamin D 47, 8.7, PTH 29 on D2 50K q7D Ankylosing spondylitis Patient understan ds to call office [facility] if he experiences any fever, chills, abdominal pain, urinary symptoms or illness given that his immune system is suppressed with secukinumab07/16/20 - TB Gold / -hep B/CC:meets 2011 ASAS criteria: HLA-B27 + c good NSAID response, inflammatory back pain, (h/o L SI by 11/2010 pelvic MRI) (no FH, uveitis, enthesitis, IBD, psoriasis, dactylitis)07/16/20 0.3/8, WBC 8.8 c stable minimal disease activity10/18/19 marked improvment allison of nocturnal inflammatory back pain p load05/05/19 given since ~10/2018 increased paracervical/lumbar stiffness, 09/19/19 changed etanercept 50 q7D to secukinumab (IL-17a) loaded 150 SC qW x 5, then q4W08/2018 CRP 2.06/1510 <0.3/312 given progressive loss of benefit c adalimumab since ~09/2016 (p ~18M use), changed to etanercept 50 qW in 04/217 and increased deandre 200 QD to BID02/2017 <0.3/412/14/15 started Humira 40 SC q2W with inflammatory cervical/lumbar pain by 06/2015-able to sleep through qhs01/08/15 given persistent severe symptoms despite high dose NSAID, plan starting adalimumab (Humira) 40 SC q2W p resolution of sialolithiasis. Patient assumes increased risk of infection and increased leukemia/lymphoma risk.11/30/14 CRP <0.3, ESR 4, increased to 200 BID c minimal improvement, therefore decreased back to QD10/2014 restarted Celebrex 200 QD c mild improvement07/27/14 MRI SI joint s abnormal signal of joint and bone marrow (no bone marrow edema) nor fracture07/07/14 c/t/l spine and SI xray c mild DSN of all cervical and lumbar levels, allison L5/1 c slight progression c/w 04/2009, otherwise normal06/2014 - indirect SAIGE, CCP 5, ESR 7, CRP 0.4had infliximib x 2 infusions in 11/2010-then held by [facility] patient states 2 no improvement (but not really given adequate trial) Other eczema Stable on fluticason e 0.05% BID to B flank/thighs plaques c flares NAFLD (nonalcoholic fatty liver disease) Encouraged ADA diet/weight loss09/2018 liver US c steatosis s focal lesion07/16/20 normal LFTs05/16/19 AFP 51 PT/PTT 14/331 GAFFNEY: F0/S3 IBS (irritable bowel syndrome) IBS-Dtrig gers: EthOH, coffee10/10/15 Xifaxan 550 TID x 14D resolved diarrhea08/2015 given - w/u as below, started Bentyl 10 QID which helped for 1M, then lost effectiveness06/2015 flare c metformin trial x 3W09/2015 CRp 0.3/ESR 116 - TTG, chromogranin A 3 (0-5), - GI panel09/2015 - IBD serology panel Open-angle glaucoma of both eyes follows with Dr. Lowe Diarrhea of infectious origin EGD/colon P c RC: CT enterography01/03/21 -GI PCR, pancr elastase >500, calpro 139, WNL fats01/01/21 -TTG- Essential (primary) hypertension Good co ntrol on carve 12.5 BID, mk 10 qAMCaution on chronic NSAIDsContingency: push quinipril 19/0.7, 4.7, hgb stable at 14.9, 13/0.8, 4.4, 2.311/2017 4.5, 2.2, 0. 4.7, 0. 4.1 c stable cr at 0. K 4.3, Mg 1. 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 105/ 120/41/158, CRP <0.3 c 10Y ASCVD risk 4.0% (lifetime 69%), therefore statin offered but deferred05/2012 102/37/181, LDL size 20.1, CRP <0. 147//2010 lipids of 117/ 1.2, 1. 1.0, 1.110/2015 1.2, FT4 1.112/2013 TSH 1.0 Prostate cancer screening No LUTs07/16/20 baseline PSA 0.5 Sialolithiasis No recurrent symptom sNo subjective dry mouth/eyes sx1 CT MF s contrast minimal sinus mucosal thickening but normal B salivary glands s sialolithiasis12/2014 advise moist heat to submandibular gland, milk duct R [place]'s duct, start lemon drops aid in passage, rxed c cephalexin QID x 10D for possible sialadenitis given tenderness, checked CT to determine extent of stone (results as above), rx c resolved swelling/pain in 3D and spontaneous passage in 4W PUD (peptic ulcer disease) Patient remai ns asymptomatic on panto 40 BID/caution c chronic NSAID10/2014 restarted Protonix 40 BID given ~3x qW JOJO and given starting Celebrex 200 QD as per AS10/09/14 EGD/ankhj-Q-okmguvc gastritis c minimal chronic gastritis by biopsy, -H pylori; therefore R favored IBS and started Levsin 0.125 SL q4H prn (which does help) and stopped Protonix 40 BID, Zantac 150 QD, and Carafate 1 TI given persistent anorexia, mild dyspepsia, repeat EGD, ? IBD c AS05/23/14 held nambutone as per and added Carafate 1 AC TID and d/hector coffee 24 oz daily, hemoglobin stable at 15.0 c 35%, 174 s supplement c improved symptoms08/2013 Zantac [address] Farmer p 08/2013 EGD showed multiple gastric ulcers07/2013 Prilosec 20 QD changed to Protonix 40 BID and Carafate 1 gm QID and Mobic 15 held added by ML07/2014 given persistent anorexia, mild dyspepsia, repeat EGD, ? IBD c AS05/2014 - H pylori Ab05/23/14 held nambutone as per and added Carafate 1 AC TID and d/hector coffee 24 oz daily, hemoglobin stable at 15.0 c 35%, 174 s supplement c improved symptoms08/2013 Zantac [address] Farmer p 08/2013 EGD showed multiple gastric ulcers07/2013 Prilosec 20 QD changed to Protonix 40 BID and Carafate 1 gm QID and Mobic 15 held added by ML Treatment Notes Test Name Order Date C REACTIVE PROTEIN QUANTITATIV (At [facility]) 2021-01-11 FIBROSPECT II PROMETHEUS LAB 2021-01-11 FERRITIN 2021-01-11 PTH INTACT 2021-01-11 ERYTHROCYTE SEDIMENTATION RATE 2021-01-11 Comprehensive Metabolic Profile (CMP) 2021-01-11 HEMOGLOBIN A1c 2021-01-11 LIPID PANEL (CARDIAC RISK) 2021-01-11 CBC with Differential 2021-01-11 VITAMIN D 25-HYDROXY 2021-01-11 Next Appt Details 4M, BW NOW Reason: Provider Name:Raymond Du, 2021-05-06 0 4:30:00 PM, [address] [facility], , [place], [address], Insurance Providers Payer Name Payer Address Payer Phone Insured Name Patient Relati onship to Insured Coverage Start Date Coverage End Date [facility] [address] [place] [id number] JESSI HEREDIA self
--- OUTSIDE RECORDS SUMMARY | 2021-03-01 07:44 | CCD ---
Author Author [facility] Organization [facility] Address Unknown Phone Unavailable Care Team Providers Care Filling Operator Name Role Phone Raymond Du Unavailable PROBLEMS Type Condition ICD9-CM Code ALP41-FM Code Onset Dates Condition S tatus W/U Status Risk SNOMED Code Notes Problem PUD (peptic ulcer disease) K27.9 Active confirmed 58478276 Problem Ankylosing spondylitis M45.9 Active confirmed 2858658 Problem Sialolithiasis K11.5 Active confirmed 70689 002 Problem Type 2 diabetes mellitus without complications E11 .9 Active confirmed 470058808 Problem Hyperlipidemia E78.5 Active confirmed 98372 004 Problem IBS (irritable bowel syndrome) K58.9 Active confir med 14481683 Problem Non-seasonal allergic rhinitis, unspecified leonardo rgic rhinitis trigger J30.89 Active confirmed 93477787 Problem Open-angle glaucoma of both eyes H40.10X0 Active confirmed 07970856803599001 Problem Overweight E66.3 Active confirmed 489430512 Problem Prostate cancer screening Z12.5 Active confirmed 539421754 Problem Essential (primary) hypertension I10 Active conf irmed 22835463 Problem Seborrheic dermatitis L21.9 Active confirmed 05430865 Problem Other eczema L30.8 Active confirmed 6616289 0 Problem Vitamin D deficiency E55.9 Active confirmed 89986981 Problem NAFLD (nonalcoholic fatty liver disease) K76.0 Active confirmed 746406524 ALLERGIES Allergen (clinical drug ingredient) Drug/Non Drug Allergy do cumented on EMR Reaction Allergy Type Onset Date Status adhesive tape rash Non Drug Allergy Activ e ENCOUNTERS from 1970 to 2021-01-08 Encounter Location Date Provider Diagnosis [address] [phone] [place] [address] Dec, Raymond Du Essential (primary) yanick carbajal I10 IMMUNIZATIONS Vaccine Route Administration Date Status TDAP 0.5mL (Boostrix) IM Intramuscular May 05, 2019 Administe red Pneumococcal 0.5mL Prevnar 13 IM Intramuscular September 02, 2018 A dministered Pneumococcal Adult 0.5mL Pneumovax 23 IM Intramuscular Apr 29 012 Administered COVID-19 dose #[address] [facility] 2020 Administered COVID-19 dose #1 given elsewhere Unspecified Unknown [facility] 2020 Administered Influenza 6mo & up Fluzone IM Intramuscular Jan 17, 2016 Admi nistered Influenza 18 yrs & older Flublok IM Intramuscular May 05, 2019 Administered Influenza 6mo & up Fluzone IM Intramuscular Jan 08, 2015 Admi nistered Influenza 18 yrs & older Flublok IM Intramuscular Mar 09, 2020 Administered Influenza 6mo & up Fluzone [...] Education Language: Question Answer Notes Languages spoken: Romanian Episcopal: Question Answer Notes Episcopal 12 Zoroastrian Sexual Hx: Question Answer Notes Had sex [...] Notes Start Da te End Date Status Celecoxib 200 MG 1 capsule Orally bid for 90 Active Fluticasone Propionate 50 MCG/ACT 2 sprays in each nos tril Nasally every morning for 90 day(s) Active Promiseb 1 1 appliaction Externally BID prn for 90 day(s) Active Fluticasone Propionate 0.05 % 1 application to affecte d area Externally as needed for itch twice a day in axillae and thighs x 10 days wtih flares for 90 day(s) Active Ergocalciferol 86800 UNIT 1 capsule Orally every 7 days for 90 day(s) Active One Touch Verio Strips Gold Strips [address] Twice a day before meals Active Zanaflex 2 MG 1 capsule as needed Orally e very 8 hours as needed ([facility]) for 30 Days Active Pantoprazole Sodium 40 MG 1 tablet Orally bid for 90 day(s) Active metFORMIN HCl ER 750 MG 1 tab Orally AC dinner for 90 day(s) Active Latanoprost 0.005 % INSTILL 1 DROP IN EACH EYE E VERY EVENING Ophthalmic once daily for 90 day(s) Active Carafate 1 GM 1 tablet on an empty stomach Orally TID for 30 d ay(s) August, Active Carvedilol 12.5 MG 1 tab Orally bid for 90 day(s) Active Cosentyx 150 MG/ML 1 ml Subcutaneous every week x 5 weeks, then ever 28 days for 90 days Active Rybelsus 14 MG 1 tablet at least 30 minutes before first food, beverage or other oral medicine of the day Orally Once a day for 30 day(s) Not-Taking Quinapril HCl 10 MG 1 tablet Orally Once a day for 90 day(s) Active PROCEDURES No Information RESULTS No Results REASON FOR VISIT Carvedilol MEDICAL (GENERAL) HISTORY Type Description Date Medical History hypertension- NST low risk-Green /August 2010 TTE-LAE 4.0 cm, diastolic dysfunction-Green Medical History paroxysmal SVT, 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 Medical History hyperlipidemia 2B Medical [...] B 27 positive/L sacroiliitis by 11/2010 MRI pelvis-[place] Medical History eczema Medical History panic disorder [...] chronic cholecystitis by pathology-[facility] 10/12/2013 Surgical History [facility] 08/2018 Surgical History 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 02/15 Surgical History right knee arthroscopy 08/28/2020 Hospitalization History surgery related Goals Section No Information Health Concerns No Information MEDICAL EQUIPMENT No Information MENTAL STATUS No Information FUNCTIONAL STATUS No Information ASSESSMENTS Encounter Date Diagnosis Assessment Notes Treatment Notes Treatm ent Clinical Notes Dec, Essential (primary) hypertension (ICD-10 - I10) PLAN OF TREATMENT Medication Medication Name Sig Start Date Stop Date Carvedilol 12.5 MG 1 tab Orally bid for 90 day(s) Pantoprazole Sodium 40 MG 1 tablet Orally bid for 90 day(s) Quinapril HCl 10 MG 1 tablet Orally Once a day for 90 day(s) Latanoprost 0.005 % INSTILL 1 DROP IN EACH EYE E VERY EVENING Ophthalmic once daily for 90 day(s) Celecoxib 200 MG 1 capsule Orally bid for 90 Next Appt Details Provider Name:Raymond Du, 2021-01-11 0 4:30:00 PM, [address] [facility], , [place], [address], Insurance Providers Payer Name Payer Address Payer Phone Insured Name Patient Relati onship to Insured Coverage Start Date Coverage End Date [employer] [address] [facility] [id number] JESSI HEREDIA self
--- OUTSIDE RECORDS SUMMARY | 2021-03-01 07:44 | CCD | Continuity of Care Document ---
Author Author [facility] Organization Unknown Address [address], [address] [place] [address] Phone [phone] Care Team Providers Care Home Assessment Nurse Name Role Phone Raymond Du M.D. AUTM [phone] Problems Active Problems Provider Date Essential hypertension [...] lb BMI (Body Mass Index) 30.1 kg/m2 [place] Body Weight 166 lb Weight 95.256 kg BSA (Body Surface Area) 2.13 m2 09/12/2014 9:57am BP Systolic 142 mmHg BP Diastolic 77 mmHg Height 70 inches 5'10" Weight 192.00 lb BMI (Body Mass Index) 27.5 kg/m2 [place] Body Weight 166 lb Weight 87.091 kg [...] Cristian Molina M.D. EPIGASTRIC PAIN Scheduled 11/07/2020 [facility], Gastroenterology [address], [address] [place] [id number] [phone]
--- OUTSIDE RECORDS SUMMARY | 2021-03-01 07:44 | CCD | Continuity of Care Document ---
Author Author Bill [facility] Organization Unknown Address [address] [place] [address] [place] [address] Phone [phone] Care Team Providers Care Grinding Machine Operator Portable Name Role Phone Raymond Du MD AUTM [phone] Problems Description No Information Available Social History [...] phalanx of the right 5th fingerRadiologist report [id number] finger jeannette-taped to 4th fingerreferral to orthopedics for further evaluation and managementContinue Celebrex for nowAdd Tylenol if neededFurther plan per orthopedicsPatient voiced understanding and agrees to treatment plan Functional Status Description No Information Available Mental Status Description No Information Available Referrals Description No Information Available
--- OUTSIDE RECORDS SUMMARY | 2021-03-01 07:44 | CCD | Continuity of Care Document ---
Author Organization Unknown Address Unknown Phone Unavailable Care Team Providers Care Chainstitch Hemmer Name Role Phone Raymond Du M.D. AUTM [phone] Problems Active Problems Provider Date Essential hypertension [...] lb BMI (Body Mass Index) 30.1 kg/m2 [place] Body Weight 166 lb Weight 95.256 kg BSA (Body Surface Area) 2.13 m2 09/12/2014 9:57am BP Systolic 142 mmHg BP Diastolic 77 mmHg Height 70 inches 5'10" Weight 192.00 lb BMI (Body Mass Index) 27.5 kg/m2 [place] Body Weight 166 lb Weight 87.091 kg BSA (Body Surface Area) 2.05 m2 Results Test Acquired Date Facility Test Result H/L Range Note Hemoglobin A1c 01/15/2021 [facility] nter Main Lab [address] [place], [place] [id number] [phone] Hemoglobin A1c 6.4 % Normal 1 Estimated Average Glucose 137 mg/dL High 60-110 2 CBC With Differential 01/15/2021 [facility] Main Lab [address] [place], [place] [id number] [phone] White Blood Count 8.3 10 Normal 4.0-10.0 [...] 36.0-66.0 Lymph % 29.4 % Normal 24.0-44.0 [place] % 7.8 % Normal 2.0-8.0 Eos % 1.2 % Normal 0.0-3.0 Baso % 0.4 % Normal 0.0-1.0 Immature Granulocyte % 0.5 % Normal 0-3.0 Nucleated Red Blood Cell % 0.0 % Normal 0-0 Neutrophils # 5.1 10 Normal 1.5-8.5 Lymph # 2.4 10 Normal 1.5-5.0 [place] # 0.7 10 Normal 0.0-0.8 Eos # 0.1 10 Normal 0.0-0.5 Baso # 0.0 10 Normal 0.0-0.2 3 Laboratory test finding 01/15/2021 [facility] Main Lab [address] [place] [address] [phone] Erythrocyte Sedimentation Rate 5 mm/hr Normal 0 -20 4 Comprehensive Metabolic Profil 01/15/2021 [facility] Main Lab [address] [place] [address] [phone] Glucose, Fasting 110 mg/dL High 70-100 Blood Urea Nitrogen 10 mg/dL Normal 7-18 Creatinine For GFR 0.93 mg/dL Normal 0.70-1.30 Glomerular Filtration Rate > 60.0 Normal >56 5 Sodium Level 144 mEq/L Normal 136-145 Potassium [...] GM/DL Normal 3.2-5.2 Albumin/Globulin Ratio 1.2 Normal 6 Lipid Panel 01/15/2021 [facility] nter Main Lab [address] [place] [address] [phone] Triglycerides Level 149 mg/dL Normal <150 Cholesterol Level 198 mg/dL Normal <200 HDL Cholesterol 45 mg/dL Normal >40 LDL Cholesterol 123 mg/dL High <100 Non-HDL-C 153 mg/dL Normal Cholesterol Risk Ratio 4.400 Normal <5 7 Laboratory test finding 01/15/2021 [facility] Main Lab [address] [place] [address] [phone] PTH Intact 37.7 pg/mL Normal 18.5-88.0 8 Total 25(Oh) Vitamin D 27.3 NG/ML Low 30.0-100.0 9 Ferritin 100 NG/ML Normal 26-388 10 C Reactive Protein Quantitativ 0.30 mg/dL Normal 0.00-0.30 11 Fibrospect HCV [facility] SEE SEPARATE REP <SEE NOTE> Normal 12, 13 Gastrointestinal (GI) Panel 01/03/2021 [facility] Main Lab [address] [place] [address] [phone] Gastrointestinal (GI) Panel This Gastro[facility]es <SEE NOTE > 14, 15 Laboratory test finding 01/03/2021 [facility] Lab [address] [place] [address] [phone] Calprotectin Stool 139 ug/g High 0-120 16 , 17 Pancreatic Elastase Stool >500 Normal >200 18 , 19 Fat Fecal Total Stool Sendout 01/03/2021 [facility] Main Lab [address] [place] [address] [phone] Fats Neutral Normal Normal . 20 Fats Total Normal Normal . 21, 22 FT4&TSH Panel 01/01/2021 [facility] Main Lab [address] [place] [address] [phone] Thyroid Stimulating Hormone 0.950 uIU/ML Normal 0. 358-3.740 Free T4 1.14 ng/dL Normal 0.76-1.46 23 Laboratory test finding 01/01/2021 [facility] Lab [address] [place] [address] [phone] Tissue Transglutaminase IgA <2 U/mL Normal 0-3 24 Immunoglobulin A 293.0 mg/dL Normal 70-400 25 1 REFERENCE RANGES: <=5.6% NORMAL 5.7-6.4% SUGGESTS IMPAIRED GLUCOSE META BOLISM/PREDIABETIC >= 6.5% ABNORMAL 2 01/22/21 (ThuJan 22) 11:33 A M NERIS CARPENTER Ordered by PCP. 3 01/22/21 (ThuJan 22) 11:33 A M NERIS CHARLEBOIS Ordered by PCP. 4 01/23/21 (ThuJan 23) 04:34 P M NERIS CHARLEBOIS Ordered by PCP. 5 Units are mL/min/1.73 m2 Chronic Kidney Disease Staging per NKF: Stage I & II GFR >=60 Normal to Mildly Decreased Stage III GFR 30-59 Moderately Decreased Stage IV GFR 15-29 Severely Decreased Stage V GFR <15 Very Little GFR Left ESRD GFR <15 on TELEGRAPH INSPECTOR 6 01/22/21 (ThuJan 22) 11:34 A M NERIS CHARLEBOIS Ordered by PCP. 7 01/22/21 (ThuJan 22) 11:34 A M NERIS CHARLEBOIS Ordered by PCP. 8 01/22/21 (ThuJan 22) 11:34 A M NERIS CHARLEBOIS Ordered by PCP. 9 01/22/21 (ThuJan 22) 11:35 A M NERIS CHARLEBOIS Ordered by PCP. 10 01/22/21 (ThuJan 22) 11:35 A M NERIS CHARLEBOIS Ordered by PCP. 11 01/22/21 (ThuJan 22) 11:35 A M NERIS CHARLEBOIS Ordered by PCP. 12 SEE SEPARATE REPORT Testing performed at reference lab . Report copy to follow on a separate form. 01/23/21 REF LAB#:[id number] 13 01/23/21 (ThuJan 23) 04:35 P M NERIS CHARLEBOIS Ordered by PCP. 14 This Gastrointestinal PCR Pa george detects the [...] infection. NEGATIVE by MULTIPLEXED NUCLEIC ACID PCR 15 01/22/21 (ThuJan 22) 11:36 A M NERIS CHARLEBOIS Negative. 16 Concentration Interpreta tion Follow-Up <16 - 50 ug/g Normal None >50 -120 ug/g Borderline Re-evaluate in 4-6 weeks >120 ug/g Abnormal Repeat as clinically indicated Performed at: [address] [id number] Director Of Consulting Services: Jalyn Leija MD, Phone: [phone] Performed at: [address] [id number] Director Of Consulting Services: Zack Virk MD, Phone: [phone] 17 01/22/21 (ThuJan 22) 11:37 A M NERIS CHARLEBOIS Elevated. Will inform patient. See triage. 18 Result Units: ug Elast./g Severe Pancreatic Insufficiency: <100 Moderate Pancreatic Insufficiency: 100 - 200 Normal: >200 19 01/22/21 (ThuJan 22) 11:37 A M NERIS CHARLEBOIS Normal. 20 Normal (<60 Droplets/HPF) This test was developed and its performance characteristics determined by [facility]. It has not been cleared or approved by the Food and Drug Administration. 21 Normal (<100 Droplets/HPF) This test was developed and its performance characteristics determined by [facility]. It has not been cleared or approved by the Food and Drug Administration. 22 01/22/21 (ThuJan 22) 11:37 A M NERIS CHARLEBOIS Normal. 23 01/22/21 (ThuJan 22) 11:23 A M NERIS CHARLEBOIS Thyroid function is normal. 24 Negative 0 - 3 Weak Positive 4 - 10 Positive >10 . Tissue Transglutaminase (tTG) has been identified as the endomysial antigen. Studies have demonstr- ated that endomysial IgA antibodies have over 99% specificity for gluten sensitive enteropathy. Performed at: [address] [id number] Director Of Consulting Services: Jalyn Leija MD, Phone: [phone] 01/22/21 (ThuJan 22) 11:25 A M NERIS CARPENTER Celiac marker is normal. Procedures Date Code Description Status 01/01/2021 23841 Office/Outpatient New Moderate M DM 45-59 Minutes Completed Medical Devices Description No Information Available Encounters Type Date Location Provider Dx Diagnosis Office Visit 01/01/2021 3:00p [facility] Gastroenterology Pra ctice Neris Geri SARBJIT Carpenter R10.13 Epigastric pain K21.9 Gastro-esophageal reflux dis ease without esophagitis R19.8 Oth symptoms and signs invol ving the dgstv sys and abdomen R14.0 Abdominal distension (gaseou s) Assessments Date Code Description Provider 01/01/2021 R10.13 Epigastric pain Neris Negro SARBJIT turner 01/01/2021 K21.9 Gastro-esophageal reflux disease without esophagitis Neris Nevarez SiminrudySARBJIT turner 01/01/2021 R19.8 Other specified symp toms and signs involving the digestive system and abdomen Neris Nevarez SARBJIT Carpenter 01/01/2021 R14.0 Abdominal distension (gaseous) M blake Nevarez SARBJIT Carpenter Plan of Treatment 01/01/2021 - Neris Nevarez SARBJIT Carpenter* R10.13 Epigastric pain * K21.9 [...] Cristian Molina M.D. EPIGASTRIC PAIN Scheduled 11/07/2020 [facility], Gastroenterology [address] [place] [address] [phone]
--- OUTSIDE RECORDS SUMMARY | 2021-03-01 07:44 | CCD | Continuity of Care Document ---
Author Author Bill PARK Organization Unknown Address [address] [place] [address] [place] [address] Phone [phone] Care Team Providers Care Detail Assembler Name Role Phone Raymond Du MD AUTM [phone] Problems Description No Information Available Social History [...] 4 Results Description No Information Available Procedures Date Code Description Status 02/13/2021 85494 Office/Outpatient New Low MDM 30 -44 Minutes Completed Medical Devices Description No Information Available Encounters Type Date Location Provider Dx Diagnosis Office Visit 02/13/2021 12:45p Main Office Justo Parsons M7 9.641 Pain in right hand Assessments Date Code Description Provider 02/13/2021 M79.641 Pain in right hand Justo Corona Plan of Treatment 02/13/2021 - Justo Parsons* M79.641 Pain in right hand* Comments:* right hand x-rays reviewed. Possible subtle avulsion or chip fracture on proximal phalanx of the right 5th fingerRadiologist report [id number] finger jeannette-taped to 4th fingerreferral to orthopedics for further evaluation and managementContinue Celebrex for nowAdd Tylenol if neededFurther plan per orthopedicsPatient voiced understanding and agrees to treatment plan Functional Status Description No Information Available Mental Status Description No Information Available Referrals Description No Information Available
--- OUTSIDE RECORDS SUMMARY | 2021-03-01 07:45 | CCD | Continuity of Care Document ---
Author Author Bill BERGERON P.T. Organization Unknown Address [address] [place] [address] Phone [phone] Care Team Providers Care Net Trainer Name Role Phone Raymond Du MD AUTM [phone] Raymond Du MD AUTM [phone] Problems Description No Information Available Social History [...] Testing Negative Procedures Date Code Description Status 12/26/2020 90609 Therapeutic Procedure, Each 15 M inutes Completed 12/26/2020 23655 Electrical Stimulati on Manual, Each 15 Min, Constant Attendance Completed 12/26/2020 80986 Therapeutic Procedure, Each 15 M inutes Completed 12/19/2020 77777 Therapeutic Procedure, Each 15 M inutes Completed 12/19/2020 68038 Therapeutic Procedure, Each 15 M inutes Completed 12/19/2020 65024 Electrical Stimulati on Manual, Each 15 Min, Constant Attendance Completed 12/19/2020 04685 Hot Or Cold Packs Completed 12/13/2020 54160 Therapeutic Procedure, Each 15 M inutes Completed 12/13/2020 19433 Therapeutic Procedure, Each 15 M inutes Completed 12/13/2020 01623 Electrical Stimulati on Manual, Each 15 Min, Constant Attendance Completed 12/13/2020 71594 Hot Or Cold Packs Completed 12/11/2020 28973 Hot Or Cold Packs Completed 12/11/2020 39293 Electrical Stimulati on Manual, Each 15 Min, Constant Attendance Completed 12/11/2020 82098 Therapeutic Procedure, Each 15 M inutes Completed 12/11/2020 79334 Therapeutic Procedure, Each 15 M inutes Completed 12/07/2020 17845 Office/Outpatient Established Lo w MDM 20-29 Min Completed 12/04/2020 68599 Re-Eval Of PT Establ ished Plan Of Care 20Mins Face To Face PT/Fam Completed 12/04/2020 24630 Therapeutic Procedure, Each 15 M inutes Completed 12/04/2020 09119 Therapeutic Procedure, Each 15 M inutes Completed 12/03/2020 86892 Office/Outpatient Established Lo w MDM 20-29 Min Completed 10/15/2020 58015 Office/Outpatient Established Lo w MDM 20-29 Min Completed 10/10/2020 53626 Re-Eval Of PT Establ ished Plan Of Care 20Mins Face To Face PT/Fam Completed 10/10/2020 72851 Therapeutic Procedure, Each 15 M inutes Completed 10/10/2020 84346 Therapeutic Procedure, Each 15 M inutes Completed 10/10/2020 80619 Electrical Stimulati on Manual, Each 15 Min, Constant Attendance Completed 10/10/2020 46774 Hot Or Cold Packs Completed 10/05/2020 25508 Therapeutic Procedure, Each 15 M inutes Completed 10/05/2020 05726 Hot Or Cold Packs Completed 10/05/2020 55279 Therapeutic Procedure, Each 15 M inutes Completed 10/05/2020 09691 Electrical Stimulati on Manual, Each 15 Min, Constant Attendance Completed 10/02/2020 18475 Therapeutic Procedure, Each 15 M inutes Completed 10/02/2020 74020 Therapeutic Procedure, Each 15 M inutes Completed 10/02/2020 09568 Electrical Stimulati on Manual, Each 15 Min, Constant Attendance Completed 10/02/2020 56123 Hot Or Cold Packs Completed 09/27/2020 95125 Therapeutic Procedure, Each 15 M inutes Completed 09/27/2020 19527 Therapeutic Procedure, Each 15 M inutes Completed 09/27/2020 73831 Electrical Stimulati on Manual, Each 15 Min, Constant Attendance Completed 09/27/2020 46205 Hot Or Cold Packs Completed 09/24/2020 71993 Electrical Stimulati on Manual, Each 15 Min, Constant Attendance Completed 09/24/2020 33348 Hot Or Cold Packs Completed 09/24/2020 20995 Therapeutic Procedure, Each 15 M inutes Completed 09/24/2020 58512 Therapeutic Procedure, Each 15 M inutes Completed 09/20/2020 10509 Therapeutic Procedure, Each 15 M inutes Completed 09/20/2020 68913 Therapeutic Procedure, Each 15 M inutes Completed 09/20/2020 51961 Electrical Stimulati on Manual, Each 15 Min, Constant Attendance Completed 09/20/2020 36398 Hot Or Cold Packs Completed 09/14/2020 08320 Therapeutic Procedure, Each 15 M inutes Completed 09/14/2020 40141 Therapeutic Procedure, Each 15 M inutes Completed 09/14/2020 84816 Electrical Stimulati on Manual, Each 15 Min, Constant Attendance Completed 09/14/2020 36942 Hot Or Cold Packs Completed 09/10/2020 50719 Physical Therapy Eval - Low Comp lexity Completed 08/28/2020 57136 Arthroscopy Knee W/M eniscectomy Inc Chondroplasty (Med & Lateral) Completed 07/13/2020 13543 Office/Outpatient Established w [facility] 20-29 Min Completed Medical Devices Description No Information Available Encounters Type Date Location Provider Dx Diagnosis Office Visit 12/07/2020 3:[place]p [place] MD S83.241D Oth tear of medial meniscus, current injury, r knee, subs S83.281D Oth tear of lat mensc, curre nt injury, right knee, subs Office Visit 12/03/2020 4:45p [place] Noble P.A. M75.41 Impingement syndrome of right shoulder Office Visit 11/05/2020 4:00p [place] MD S83.241D Oth tear of medial meniscus, current injury, r knee, subs S83.281D Oth tear of lat mensc, curre nt injury, right knee, subs Office Visit 10/15/2020 9:00a [place] P.A. M75.41 Impingement syndrome of right shoulder Office Visit 10/05/2020 8:30a Katia Lindsey PA-C S83.241 D Oth tear of medial meniscus, current injury, r knee, subs S83.281D Oth tear of lat mensc, curre nt injury, right knee, subs Office Visit 09/07/2020 11:15a Katia Lindsey PA-C S83.241 D Oth tear of medial meniscus, current injury, r knee, subs S83.281D Oth tear of lat mensc, curre nt injury, right knee, subs Office Visit 08/31/2020 8:30a Katia Lindsey MD S83.241D Oth tear of medial meniscus, current injury, r knee, subs S83.281D Oth tear of lat mensc, curre nt injury, right knee, subs Office Visit 07/13/2020 4:00p [place] P.A. M75.41 Impingement syndrome of right shoulder Assessments Date Code Description Provider 12/26/2020 S83.241D Other tear of medial meniscus, [...] P.T. 12/03/2020 M75.41 Impingement syndrome of right sh [place] Justo Tran 11/05/2020 S83.241D Other tear of medial meniscus, current injury, right knee, subsequent encounter Donald Lindsey MD 11/05/2020 S83.281D Other tear of latera l meniscus, current injury, right knee, subsequent encounter Donald Lindsey MD 10/15/2020 M75.41 Imping[facility] 10/10/2020 S83.241D Other tear of medial meniscus, [...] knee, [facility] 10/02/2020 S83.281D Other tear of latera l meniscus, current injury, right knee, subsequent [facility] 09/27/2020 S83.241D Other tear of medial meniscus, current injury, right knee, subsequent encounter [facility], [facility] 09/27/2020 S83.281D Other tear of latera l meniscus, current injury, right knee, subsequent encounter [facility], [facility] 09/24/2020 S83.241D Other tear of medial meniscus, current injury, right knee, subsequent encounter [facility], [facility] 09/24/2020 S83.281D Other tear of latera l meniscus, current injury, right knee, subsequent encounter [facility], [facility] 09/20/2020 S83.241D Other tear of medial [...] Lindsey MD 08/28/[address] [place] place of occurrence of the [...] MD 07/13/2020 M75.41 Impingement syndrome of right [facility] Humberto Noble, [place]am[place] Plan of Treatment Future Appointment(s):* 01/01/2021 1:30 pm - Stu Bergeron P.T. at Physical Therapy Functional Status Description No Information Available Mental Status Description No Information Available Referrals Refer to Dr Reason for Referral Status Appt Date Donald Lindsey MD PT RT KNEE WRITTEN AUTH PASSED TO PT DEPT. BONG Created [facility] [place] [address] [phone] Donald Lindsey MD RT SHOULDER INJ OK TO [facility] PER MT. PASS ED TO JAYLEEN. BONG Created [facility] [place] [address] [phone] Humberto Noble PA PT RT KNEE OK TO [facility] 1ST SET AFTER SURGERY. BONG Created [facility] [place] [address] [phone] Humberto Noble PA SURGERY RT KNEE MENISCECTOMY WRITTEN AUTH PASSED TO SURGERY. BONG Created [facility] [place] [address] [phone] Humberto Noble PA CRUTCHES OK TO SUPPLY HERE. BONG lorenz [address] [facility] [address] [place] [address] [phone]
--- OUTSIDE RECORDS SUMMARY | 2021-03-01 07:45 | CCD | Continuity of Care Document ---
Author Author Bill BERGERON P.T. Organization Unknown Address [address] [place] [address] Phone [phone] Care Team Providers Care Balloon Artist Name Role Phone Raymond Du MD AUTM [phone] Raymond Du MD AUTM [phone] Problems Description No Information Available Social History [...] Negative Procedures Date Code Description Status 12/26/2020 89825 Therapeutic Procedure, Each 15 M inutes Completed 12/26/2020 32718 Electrical Stimulati on Manual, Each 15 Min, Constant Attendance Completed 12/26/2020 89644 Therapeutic Procedure, Each 15 M inutes Completed 12/19/2020 88066 Therapeutic Procedure, Each 15 M inutes Completed 12/19/2020 72200 Therapeutic Procedure, Each 15 M inutes Completed 12/19/2020 50440 Electrical Stimulati on Manual, Each 15 Min, Constant Attendance Completed 12/19/2020 56354 Hot Or Cold Packs Completed 12/13/2020 44762 Therapeutic Procedure, Each 15 M inutes Completed 12/13/2020 49725 Therapeutic Procedure, Each 15 M inutes Completed 12/13/2020 03207 Electrical Stimulati on Manual, Each 15 Min, Constant Attendance Completed 12/13/2020 99377 Hot Or Cold Packs Completed 12/11/2020 01528 Hot Or Cold Packs Completed 12/11/2020 32428 Electrical Stimulati on Manual, Each 15 Min, Constant Attendance Completed 12/11/2020 56885 Therapeutic Procedure, Each 15 M inutes Completed 12/11/2020 02153 Therapeutic Procedure, Each 15 M inutes Completed 12/07/2020 35356 Office/Outpatient Established Lo w MDM 20-29 Min Completed 12/04/2020 72815 Re-Eval Of PT Establ ished Plan Of Care 20Mins Face To Face PT/Fam Completed 12/04/2020 49208 Therapeutic Procedure, Each 15 M inutes Completed 12/04/2020 55138 Therapeutic Procedure, Each 15 M inutes Completed 12/03/2020 01731 Office/Outpatient Established Lo w MDM 20-29 Min Completed 10/15/2020 29201 Office/Outpatient Established Lo w MDM 20-29 Min Completed 10/10/2020 04018 Re-Eval Of PT Establ ished Plan Of Care 20Mins Face To Face PT/Fam Completed 10/10/2020 78044 Therapeutic Procedure, Each 15 M inutes Completed 10/10/2020 64657 Therapeutic Procedure, Each 15 M inutes Completed 10/10/2020 54030 Electrical Stimulati on Manual, Each 15 Min, Constant Attendance Completed 10/10/2020 04972 Hot Or Cold Packs Completed 10/05/2020 20035 Therapeutic Procedure, Each 15 M inutes Completed 10/05/2020 45723 Hot Or Cold Packs Completed 10/05/2020 59396 Therapeutic Procedure, Each 15 M inutes Completed 10/05/2020 07281 Electrical Stimulati on Manual, Each 15 Min, Constant Attendance Completed 10/02/2020 64988 Therapeutic Procedure, Each 15 M inutes Completed 10/02/2020 30745 Therapeutic Procedure, Each 15 M inutes Completed 10/02/2020 99175 Electrical Stimulati on Manual, Each 15 Min, Constant Attendance Completed 10/02/2020 40631 Hot Or Cold Packs Completed 09/27/2020 53514 Therapeutic Procedure, Each 15 M inutes Completed 09/27/2020 55804 Therapeutic Procedure, Each 15 M inutes Completed 09/27/2020 39278 Electrical Stimulati on Manual, Each 15 Min, Constant Attendance Completed 09/27/2020 58033 Hot Or Cold Packs Completed 09/24/2020 68498 Electrical Stimulati on Manual, Each 15 Min, Constant Attendance Completed 09/24/2020 91471 Hot Or Cold Packs Completed 09/24/2020 06859 Therapeutic Procedure, Each 15 M inutes Completed 09/24/2020 31924 Therapeutic Procedure, Each 15 M inutes Completed 09/20/2020 20606 Therapeutic Procedure, Each 15 M inutes Completed 09/20/2020 50583 Therapeutic Procedure, Each 15 M inutes Completed 09/20/2020 22984 Electrical Stimulati on Manual, Each 15 Min, Constant Attendance Completed 09/20/2020 13743 Hot Or Cold Packs Completed 09/14/2020 92192 Therapeutic Procedure, Each 15 M inutes Completed 09/14/2020 52327 Therapeutic Procedure, Each 15 M inutes Completed 09/14/2020 56008 Electrical Stimulati on Manual, Each 15 Min, Constant Attendance Completed 09/14/2020 26653 Hot Or Cold Packs Completed 09/10/2020 07258 Physical Therapy Eval - Low Comp lexity Completed 08/28/2020 09916 Arthroscopy Knee W/M eniscectomy Inc Chondroplasty (Med & Lateral) Completed 07/13/2020 40069 Office/Outpatient Established w [facility] 20-29 Min Completed Medical Devices Description No Information Available Encounters Type Date Location Provider Dx Diagnosis Office Visit 12/07/2020 3:[place] S83.241D Oth tear of medial meniscus, current injury, r knee, subs S83.281D Oth tear of lat mensc, curre nt injury, right knee, subs Office Visit 12/03/2020 4:45p [place] P.A. M75.41 Impingement syndrome of right shoulder Office Visit 11/05/2020 4:00p [place] MD S83.241D Oth tear of medial meniscus, current injury, r knee, subs S83.281D Oth tear of lat mensc, curre nt injury, right knee, subs Office Visit 10/15/2020 9:00a [place] P.[place] M75.41 Impingement syndrome of right [...] right knee, subs Office Visit 07/13/2020 4:00p [place] P.A. M75.41 Impingement syndrome of right [...] 10/15/2020 M75.41 [facility]ing[facility] 10/10/2020 S83.241D Other tear of [...] injury, right knee, subsequent encounter [facility] 10/02/2020 S83.281D Other tear of latera l meniscus, current injury, right knee, subsequent encounter Gaviota Jones, [facility] 09/27/2020 S83.241D Other tear of medial meniscus, current injury, right knee, subsequent encounter Gaviota Jones, [facility] 09/27/2020 S83.281D Other tear of latera l meniscus, current injury, right knee, subsequent encounter Gaviota Jones, [facility] 09/24/2020 S83.241D Other tear of medial meniscus, current injury, right knee, subsequent encounter Gaviota Jones, [facility] 09/24/2020 S83.281D Other tear of latera l meniscus, current injury, right knee, subsequent encounter Gaviota Jones, [facility] 09/20/2020 S83.241D Other tear of [...] Lindsey MD 08/28/[address] in nursing home as the place of occurrence of the [...] MD 07/13/2020 M75.41 Impingement syndrome of right [facility] Humberto Noble, [place] Plan of Treatment Future Appointment(s):* 01/01/2021 1:30 pm - Stu Bergeron P.T. at Physical Therapy Functional Status Description No Information Available Mental Status Description No Information Available Referrals Refer to Dr Reason for Referral Status Appt Date Donald Lindsey MD PT RT KNEE WRITTEN AUTH PASSED TO PT DEPT. BONG Created [facility] [place] [address] [phone] Donald Lindsey MD RT SHOULDER INJ OK TO [facility] PER MT. PASS ED TO [facility]LE[facility]. BONG Created [facility] [place] [address] [phone] Humberto Noble PA PT RT KNEE OK TO [facility] 1ST SET AFTER SURGERY. BONG Created [facility] [place] [address] [phone] Humberto Noble PA SURGERY RT KNEE MENISCECTOMY WRITTEN AUTH PASSED TO SURGERY. BONG Created [facility] [place] [address] [phone] Humberto Noble PA CRUTCHES OK TO SUPPLY HERE. BONG lorenz [address] [facility] [address] [place] [address] [phone]
--- OUTSIDE RECORDS SUMMARY | 2021-03-01 07:45 | CCD | Continuity of Care Document ---
Author Author Bill BERGERON P.T. Organization Unknown Address [address] [place] [address] Phone [phone] Care Team Providers Care Sander And Polisher Name Role Phone Raymond Du MD AUTM [phone] Raymond Du MD AUTM [phone] Problems Description No Information Available Social History [...] Negative Procedures Date Code Description Status 12/26/2020 87950 Therapeutic Procedure, Each 15 M inutes Completed 12/26/2020 94749 Electrical Stimulati on Manual, Each 15 Min, Constant Attendance Completed 12/26/2020 50009 Therapeutic Procedure, Each 15 M inutes Completed 12/19/2020 38986 Therapeutic Procedure, Each 15 M inutes Completed 12/19/2020 43529 Therapeutic Procedure, Each 15 M inutes Completed 12/19/2020 94465 Electrical Stimulati on Manual, Each 15 Min, Constant Attendance Completed 12/19/2020 58217 Hot Or Cold Packs Completed 12/13/2020 32129 Therapeutic Procedure, Each 15 M inutes Completed 12/13/2020 07616 Therapeutic Procedure, Each 15 M inutes Completed 12/13/2020 49407 Electrical Stimulati on Manual, Each 15 Min, Constant Attendance Completed 12/13/2020 10313 Hot Or Cold Packs Completed 12/11/2020 60460 Hot Or Cold Packs Completed 12/11/2020 46653 Electrical Stimulati on Manual, Each 15 Min, Constant Attendance Completed 12/11/2020 42564 Therapeutic Procedure, Each 15 M inutes Completed 12/11/2020 53177 Therapeutic Procedure, Each 15 M inutes Completed 12/07/2020 79316 Office/Outpatient Established Lo w MDM 20-29 Min Completed 12/04/2020 51003 Re-Eval Of PT Establ ished Plan Of Care 20Mins Face To Face PT/Fam Completed 12/04/2020 32314 Therapeutic Procedure, Each 15 M inutes Completed 12/04/2020 30166 Therapeutic Procedure, Each 15 M inutes Completed 12/03/2020 14864 Office/Outpatient Established Lo w MDM 20-29 Min Completed 10/15/2020 08229 Office/Outpatient Established Lo w MDM 20-29 Min Completed 10/10/2020 45055 Re-Eval Of PT Establ ished Plan Of Care 20Mins Face To Face PT/Fam Completed 10/10/2020 67442 Therapeutic Procedure, Each 15 M inutes Completed 10/10/2020 99468 Therapeutic Procedure, Each 15 M inutes Completed 10/10/2020 55165 Electrical Stimulati on Manual, Each 15 Min, Constant Attendance Completed 10/10/2020 66048 Hot Or Cold Packs Completed 10/05/2020 29222 Therapeutic Procedure, Each 15 M inutes Completed 10/05/2020 95467 Hot Or Cold Packs Completed 10/05/2020 88892 Therapeutic Procedure, Each 15 M inutes Completed 10/05/2020 45151 Electrical Stimulati on Manual, Each 15 Min, Constant Attendance Completed 10/02/2020 59782 Therapeutic Procedure, Each 15 M inutes Completed 10/02/2020 58536 Therapeutic Procedure, Each 15 M inutes Completed 10/02/2020 11260 Electrical Stimulati on Manual, Each 15 Min, Constant Attendance Completed 10/02/2020 09202 Hot Or Cold Packs Completed 09/27/2020 31386 Therapeutic Procedure, Each 15 M inutes Completed 09/27/2020 74362 Therapeutic Procedure, Each 15 M inutes Completed 09/27/2020 96971 Electrical Stimulati on Manual, Each 15 Min, Constant Attendance Completed 09/27/2020 55956 Hot Or Cold Packs Completed 09/24/2020 05913 Electrical Stimulati on Manual, Each 15 Min, Constant Attendance Completed 09/24/2020 69899 Hot Or Cold Packs Completed 09/24/2020 73844 Therapeutic Procedure, Each 15 M inutes Completed 09/24/2020 31485 Therapeutic Procedure, Each 15 M inutes Completed 09/20/2020 98842 Therapeutic Procedure, Each 15 M inutes Completed 09/20/2020 84787 Therapeutic Procedure, Each 15 M inutes Completed 09/20/2020 25977 Electrical Stimulati on Manual, Each 15 Min, Constant Attendance Completed 09/20/2020 50568 Hot Or Cold Packs Completed 09/14/2020 72008 Therapeutic Procedure, Each 15 M inutes Completed 09/14/2020 98240 Therapeutic Procedure, Each 15 M inutes Completed 09/14/2020 59201 Electrical Stimulati on Manual, Each 15 Min, Constant Attendance Completed 09/14/2020 36165 Hot Or Cold Packs Completed 09/10/2020 85413 Physical Therapy Eval - Low Comp lexity Completed 08/28/2020 81592 Arthroscopy Knee W/M eniscectomy Inc Chondroplasty (Med & Lateral) Completed 07/13/2020 58392 Office/Outpatient Established w [facility] 20-29 Min Completed Medical Devices Description No Information Available Encounters Type Date Location Provider Dx Diagnosis Office Visit 12/07/2020 3:45p [place] MD S83.241D Oth tear of medial meniscus, current injury, r knee, subs S83.281D Oth tear of lat mensc, curre nt injury, right knee, subs Office Visit 12/03/2020 4:45p [place] Noble P.A. M75.41 Impingement syndrome of right shoulder Office Visit 11/05/2020 4:00p [place] MD S83.241D Oth tear of medial meniscus, current injury, r knee, subs S83.281D Oth tear of lat mensc, curre nt injury, right knee, subs Office Visit 10/15/2020 9:00a [place] P.A. M75.41 Impingement syndrome of right [...] right knee, subs Office Visit 07/13/2020 4:00p [place] P.A. M75.41 Impingement syndrome of right [...] 10/15/2020 M75.41 [facility]ingement syndrome of [facility] 10/10/2020 S83.241D Other tear of [...] right knee, subsequent [facility] 10/02/2020 S83.281D Other tear of latera l meniscus, current injury, right knee, subsequent encounter [facility], [facility] 09/27/2020 S83.241D Other tear of medial meniscus, current injury, right knee, subsequent encounter [facility] Jones, [facility] 09/27/2020 S83.281D Other tear of latera l meniscus, current injury, right knee, subsequent encounter [facility] Jones, [facility] 09/24/2020 S83.241D Other tear of medial meniscus, current injury, right knee, subsequent encounter [facility] Jones, [facility] 09/24/2020 S83.281D Other tear of latera l meniscus, current injury, right knee, subsequent encounter [facility] Jones, [facility] 09/20/2020 S83.241D Other tear of medial [...] Lindsey MD 08/28/[address] in long term as the place of occurrence of the [...] MD 07/13/2020 M75.41 Impingement syndrome of right [facility] Humberto Noble, [place]am[place] Plan of Treatment Future Appointment(s):* 01/01/2021 1:30 pm - Stu Bergeron P.T. at Physical Therapy Functional Status Description No Information Available Mental Status Description No Information Available Referrals Refer to Dr Reason for Referral Status Appt Date Donald Lindsey MD PT RT KNEE WRITTEN AUTH PASSED TO PT DEPT. BONG Created [place] [address] [phone] Donald Lindsey MD RT SHOULDER INJ OK TO [facility] PER MT. PASS ED TO [facility]. BONG Created [facility] [place] [address] [phone] Humberto Noble PA PT RT KNEE OK TO [facility] 1ST SET AFTER SURGERY. BONG [place] [address] [phone] Humberto Noble PA SURGERY RT KNEE MENISCECTOMY WRITTEN AUTH PASSED TO SURGERY. BONG [place] [address] [phone] Humberto Noble PA CRUTCHES OK TO SUPPLY HERE. BONG lorenz [address] [facility] [address] [place] [address] [phone]
--- OUTSIDE RECORDS SUMMARY | 2021-03-01 07:45 | CCD | Continuity of Care Document ---
Author Author Bill [facility] Organization Unknown Address [address], [address] [place] [address] Phone [phone] Care Team Providers Care Side Puller Name Role Phone Raymond Du M.D. AUTM [phone] Problems Active Problems Provider Date Essential hypertension Jim Flores M.D. Onset: 2 Internal hemorrhoids without complication Jam Baarhona Onset: 03/08/2012 Type 2 diabetes mellitus William [...] lb BMI (Body Mass Index) 30.1 kg/m2 [place] Body Weight 166 lb Weight 95.256 kg BSA (Body Surface Area) 2.13 m2 09/12/2014 9:57am BP Systolic 142 mmHg BP Diastolic 77 mmHg Height 70 inches 5'10" Weight 192.00 lb BMI (Body Mass Index) 27.5 kg/m2 [place] Body Weight 166 lb Weight 87.091 kg [...] Cristian Molina M.D. EPIGASTRIC PAIN Scheduled 11/07/2020 [facility], Gastroenterology [address], [address] [place] [id number] [phone]
--- OUTSIDE RECORDS SUMMARY | 2021-03-01 07:46 | CCD ---
Author Author [facility] Organization [facility] Address Unknown Phone Unavailable Care Team Providers Care Senior Bioinformatics Specialist Name Role Phone Fish, B Donald SCOTT Unavailable Unavailable Fish, B Donald SCOTT Unavailable Unavailable Fish, B Donald SCOTT Unavailable Unavailable Fish, B Donald SCOTT Unavailable Unavailable Fish, B Donald SCOTT Unavailable Unavailable Fish, B Donald SCOTT Unavailable Unavailable Fish, B Donald SCOTT Unavailable Unavailable Fish, B Donald SCOTT Unavailable Unavailable Fish, B Donald SCOTT Unavailable Unavailable Fish, B Donald SCOTT Unavailable Unavailable Fish, B Donald SCOTT Unavailable Unavailable Fish, B Donald SCOTT Unavailable Unavailable Fish, B Donald SCOTT Unavailable Unavailable Fish, B Donald SCOTT Unavailable Unavailable Fish, B Donald SCOTT Unavailable Unavailable Fish, B Donald SCOTT Unavailable Unavailable Fish, B Donald SCOTT Unavailable Unavailable Fish, B Donald SCOTT Unavailable Unavailable Fish, B Donald SCOTT Unavailable Unavailable Fish, B Donald SCOTT Unavailable Unavailable Fish, B Donald SCOTT Unavailable Unavailable Fish, B Donald SCOTT Unavailable Unavailable Fish, B Donald SCOTT Unavailable Unavailable Fish, B Donald SCOTT Unavailable Unavailable Fish, B Donald SCOTT Unavailable Unavailable Fish, B Donald SCOTT Unavailable Unavailable Fish, B Donald SCOTT Unavailable Unavailable Fish, B Donald SCOTT Unavailable Unavailable Fish, B Donald SCOTT Unavailable Unavailable Fish, B Donald SCOTT Unavailable Unavailable Fish, B Donald SCOTT Unavailable Unavailable Fish, B Donald SCOTT Unavailable Unavailable Fish, B Donadl SCOTT Unavailable Unavailable Fish, B Donald SCOTT Unavailable Unavailable Fish, B Donald SCOTT Unavailable Unavailable Fish, B Donald SCOTT Unavailable Unavailable Fish, B Donald SCOTT Unavailable Unavailable Fish, B Donald SCOTT Unavailable Unavailable Fish, B Donald SCOTT Unavailable Unavailable Fish, B Donald SCOTT Unavailable Unavailable Fish, B Donald SCOTT Unavailable Unavailable Fish, B Donald SCOTT Unavailable Unavailable Fish, B Donald SCOTT Unavailable Unavailable Fish, B Donald SCOTT Unavailable Unavailable Fish, B Donald SCOTT Unavailable Unavailable Fish, B Donald SCOTT Unavailable Unavailable Fish, B Donald SCOTT Unavailable Unavailable Fish, B Donald SCOTT Unavailable Unavailable Fish, B Donald SCOTT Unavailable Unavailable Fish, B Donald SCOTT Unavailable Unavailable Fish, B Donald SCOTT Unavailable Unavailable Fish, B Donald SCOTT Unavailable Unavailable Fish, B Donald SCOTT Unavailable Unavailable Fish, B Donald SCOTT Unavailable Unavailable Fish, B Donald SCOTT Unavailable Unavailable Fish, B Donald SCOTT Unavailable Unavailable Charlebois, A Babak RPA C Unavailable Unavailable Charlebois, A Babak RPA C Unavailable Unavailable Charlebois, A Babak RPA C Unavailable Unavailable Charlebois, A Babak RPA C Unavailable Unavailable Charlebois, A Babak RPA C Unavailable Unavailable Charlebois, A Babak RPA C Unavailable Unavailable Charlebois, A Babak RPA C Unavailable Unavailable Charlebois, A Babak RPA C Unavailable Unavailable Charlebois, A Babak RPA C Unavailable Unavailable Charlebois, A Babak RPA C Unavailable Unavailable Charlebois, A Babak RPA C Unavailable Unavailable Charlebois, A Babak RPA C Unavailable Unavailable Charlebois, A Babak RPA C Unavailable Unavailable Charlebois, A Babak RPA C Unavailable Unavailable Charlebois, A Babak RPA C Unavailable Unavailable Charlebois, A Babak RPA C Unavailable Unavailable Charlebois, A Babak RPA C Unavailable Unavailable Charlebois, A Babak RPA C Unavailable Unavailable Charlebois, A Babak RPA C Unavailable Unavailable Charlebois, A Babak RPA C Unavailable Unavailable Charlebois, A Babak RPA C Unavailable Unavailable Charlebois, A Babak RPA C Unavailable Unavailable Charlebois, A Babak RPA C Unavailable Unavailable Charlebois, A Babak RPA C Unavailable Unavailable Charlebois, A Babak RPA C Unavailable Unavailable Charlebois, A Babak RPA C Unavailable Unavailable Charlebois, A Babak RPA C Unavailable Unavailable Charlebois, A Babak RPA C Unavailable Unavailable Charlebois, A Babak RPA C Unavailable Unavailable Charlebois, A Babak RPA C Unavailable Unavailable Charlebois, A Babak RPA C Unavailable Unavailable Charlebois, A Babak RPA C Unavailable Unavailable Charlebois, A Babak RPA C Unavailable Unavailable Fish, [facility], PA-C Unavailable Unavailabl e Fish, [facility], PA-C Unavailable Unavailabl e Fish, [facility], PA-C Unavailable Unavailabl e Fish, [facility], PA-C Unavailable Unavailabl e Fish, [facility], PA-C Unavailable Unavailabl e Fish, [facility], PA-C Unavailable Unavailabl e Fish, [facility], PA-C Unavailable Unavailabl e Fish, [facility], PA-C Unavailable Unavailabl e Fish, [facility], PA-C Unavailable Unavailabl e Fish, [facility], PA-C Unavailable Unavailabl e Fish, [facility], PA-C Unavailable Unavailabl e Fish, [facility], PA-C Unavailable Unavailabl e Fish, [facility], PA-C Unavailable Unavailabl e Fish, [facility], PA-C Unavailable Unavailabl e Fish, [facility], PA-C Unavailable Unavailabl e Fish, [facility], PA-C Unavailable Unavailabl e Fish, [facility], PA-C Unavailable Unavailabl e Fish, [facility], PA-C Unavailable Unavailabl e Fish, [facility], PA-C Unavailable Unavailabl e Fish, [facility], PA-C Unavailable Unavailabl e Fish, [facility], PA-C Unavailable Unavailabl e Fish, [facility] Unavailable Unavailabl e Fish, [facility] Unavailable Unavailabl e Fish, [facility]C Unavailable Unavailabl e Fish, [facility]C Unavailable Unavailabl e Fish, [facility] PA[facility]C Unavailable Unavailabl e Fish, [facility] PA[facility]C Unavailable Unavailabl e Fish, [facility]C Unavailable Unavailabl e Fish, [facility]C Unavailable Unavailabl e Fish, [facility]C Unavailable Unavailabl e Fish, [facility] PA[facility]C Unavailable Unavailabl e Fish, [facility], PA-C Unavailable Unavailabl e Fish, [facility], PA[facility]C Unavailable Unavailabl e Fish, [facility], PA-C Unavailable Unavailabl e Fish, [facility], PA[facility]C Unavailable Unavailabl e Fish, [facility], PA-C Unavailable Unavailabl e MCELHERAN, LAYLA PA Unavailable Unavailable MCELHERAN, LAYLA PA Unavailable Unavailable MCELHERAN, LAYLA PA Unavailable Unavailable MCELHERAN, LAYLA PA Unavailable Unavailable MCELHERAN, LAYLA PA Unavailable Unavailable MCELHERAN, LAYLA PA Unavailable Unavailable MCELHERAN, LAYLA PA Unavailable Unavailable MCELHERAN, LAYLA PA Unavailable Unavailable MCELHERAN, LAYLA PA Unavailable Unavailable MCELHERAN, LAYLA PA Unavailable Unavailable MCELHERAN, LAYLA PA Unavailable Unavailable MCELHERAN, LAYLA PA Unavailable Unavailable MCELHERAN, LAYLA PA Unavailable Unavailable MCELHERAN, LAYLA PA Unavailable Unavailable MCELHERAN, LAYLA PA Unavailable Unavailable MCELHERAN, LAYLA PA Unavailable Unavailable MCELHERAN, LAYLA PA Unavailable Unavailable MCELHERAN, LAYLA PA Unavailable Unavailable MCELHERAN, LAYLA PA Unavailable Unavailable MCELHERAN, LAYLA PA Unavailable Unavailable MCELHERAN, LAYLA PA Unavailable Unavailable MCELHERAN, LAYLA PA Unavailable Unavailable MCELHERAN, LAYLA PA Unavailable Unavailable MCELHERAN, LAYLA PA Unavailable Unavailable MCELHERAN, LAYLA PA Unavailable Unavailable MCELHERAN, LAYLA PA Unavailable Unavailable MCELHERAN, LAYLA PA Unavailable Unavailable MCELHERAN, LAYLA PA Unavailable Unavailable MCELHERAN, LAYLA PA Unavailable Unavailable MCELHERAN, LAYLA PA Unavailable Unavailable MCELHERLAYLA DANIELSON PA Unavailable Unavailable MCELHERLAYLA DANIELSON PA Unavailable Unavailable MCELHERLAYLA DANIELSON PA Unavailable Unavailable MCELHERLAYLA DANIELSON PA Unavailable Unavailable MCELHERLAYLA DANIELSON PA Unavailable Unavailable MCELHERLAYLA DANIELSON PA Unavailable Unavailable CHALOLHERLAYLA DANIELSON PA Unavailable Unavailable CHALOLLAYLA WOOTEN PA Unavailable Unavailable CHALOLHERLAYLA DANIELSON PA Unavailable Unavailable CHALOLHERLAYLA DANIELSON PA Unavailable Unavailable CHALOLLAYLA WOOTEN PA Unavailable Unavailable CHALOLHERLYALA DANIELSON PA Unavailable Unavailable CHALOLHERLAYLA DANIELSON PA Unavailable Unavailable CHALOLHERLAYLA DANIELSON PA Unavailable Unavailable CHALOLLAYLA WOOTEN PA Unavailable Unavailable CHALOLHERLAYLA DANIELSON PA Unavailable Unavailable CHALOLLAYLA WOOTEN PA Unavailable Unavailable CHALOLHERLAYLA DANIELSON PA Unavailable Unavailable CHALOLHERLAYLA DANIELSON PA Unavailable Unavailable CHALOLLAYLA WOOTEN PA Unavailable Unavailable CHALOLLAYLA WOOTEN PA Unavailable Unavailable CHALOLLAYAL WOOTEN PA Unavailable Unavailable CHALOLLAYLA WOOTEN PA Unavailable Unavailable CHALOLLAYLA WOOTEN PA Unavailable Unavailable CHALOLLAYLA WOOTEN PA Unavailable Unavailable CHALOLLAYLA WOOTEN PA Unavailable Unavailable MCELHERLAYLA DANIELSON PA Unavailable Unavailable MCELHERLAYLA DANIELSON PA Unavailable Unavailable Feola, T Huyen PA Unavailable Unavailable Feola, T Huyen PA Unavailable Unavailable Feola, T Huyen PA Unavailable Unavailable Feola, T Huyen PA Unavailable Unavailable Feola, T Huyen PA Unavailable Unavailable Feola, T Huyen PA Unavailable Unavailable Feola, T Huyen PA Unavailable Unavailable Feola, T Huyen PA Unavailable Unavailable Feola, T Huyen PA Unavailable Unavailable Feola, T Hyuen PA Unavailable Unavailable Feola, T Huyen PA Unavailable Unavailable Feola, T Huyen PA Unavailable Unavailable Feola, T Huyen PA Unavailable Unavailable Feola, T Huyen PA Unavailable Unavailable Feola, T Huyen PA Unavailable Unavailable Feola, T Huyen PA Unavailable Unavailable Feola, T Huyen PA Unavailable Unavailable Feola, T Huyen PA Unavailable Unavailable Feola, T Huyen PA Unavailable Unavailable Feola, T Huyen PA Unavailable Unavailable Feola, T Huyen PA Unavailable Unavailable Feola, T Huyen PA Unavailable Unavailable Feola, T Huyen PA Unavailable Unavailable Feola, T Huyen PA Unavailable Unavailable Feola, T Huyen PA Unavailable Unavailable Feola, T Huyen PA Unavailable Unavailable Feola, T Huyen PA Unavailable Unavailable Feola, T Huyen PA Unavailable Unavailable Feola, T Huyen PA Unavailable Unavailable Feola, T Huyen PA Unavailable Unavailable Feola, T Huyen PA Unavailable Unavailable Feola, T Huyen PA Unavailable Unavailable Feola, T Huyen PA Unavailable Unavailable Feola, T Huyen PA Unavailable Unavailable Feola, T Huyen PA Unavailable Unavailable Feola, T Huyen PA Unavailable Unavailable Feola, T Huyen PA Unavailable Unavailable Feola, T Huyen PA Unavailable Unavailable Feola, T Huyen PA Unavailable Unavailable Feola, T Huyen PA Unavailable Unavailable Feola, T Huyen PA Unavailable Unavailable MandaNaomi cuenca MD Unavailable Unavailable MandaNaomi cuenca MD Unavailable Unavailable MandaNaomi cuenca MD Unavailable Unavailable MandaNaomi cuenca MD Unavailable Unavailable MandaNaomi cuenca MD Unavailable Unavailable MandaNaomi cuenca MD Unavailable Unavailable MandaNaomi cuenca MD Unavailable Unavailable MandaNaomi cuenca MD Unavailable Unavailable MandaNaomi cuenca MD Unavailable Unavailable MandaNaomi cuenca MD Unavailable Unavailable MandaNaomi cuenca MD Unavailable Unavailable MandaNaomi cuenca MD Unavailable Unavailable MandaNaomi cuenca MD Unavailable Unavailable MandaNaomi cuenca MD Unavailable Unavailable MandaNaomi cuenca MD Unavailable Unavailable MandaNaomi cuenca MD Unavailable Unavailable MandaNaomi cuenca MD Unavailable Unavailable MandaNaomi cuenca MD Unavailable Unavailable MandaNaomi cuenca MD Unavailable Unavailable MandaNaomi cuenca MD Unavailable Unavailable MandaNaomi cuenca MD Unavailable Unavailable MandaNaomi cuenca MD Unavailable Unavailable MandaNaomi cuenca MD Unavailable Unavailable MandaNaomi cuenca MD Unavailable Unavailable MandaNaomi cuenca MD Unavailable Unavailable MnadaNaomi cuenca MD Unavailable Unavailable MandaNaomi cuenca MD Unavailable Unavailable MandaNaomi cuenca MD Unavailable Unavailable MandaNaomi cuenca MD Unavailable Unavailable MandaNaomi cuenca MD Unavailable Unavailable MandaNaomi cuenca MD Unavailable Unavailable MandaNaomi cuenca MD Unavailable Unavailable MandaNaomi cuenca MD Unavailable Unavailable MandaNaomi cuenca MD Unavailable Unavailable MandaNaomi cuenca MD Unavailable Unavailable MandaNaomi cuenca MD Unavailable Unavailable MandaNaomi cuenca MD Unavailable Unavailable MandaNaomi cuenca MD Unavailable Unavailable MandaNaomi cuenca MD Unavailable Unavailable MandaNaomi cuenca MD Unavailable Unavailable MandaNaomi cuenca MD Unavailable Unavailable MandaNaomi cuenca MD Unavailable Unavailable MandaNaomi cuenca MD Unavailable Unavailable MandaNaomi cuenca MD Unavailable Unavailable MandaNaomi cuenca MD Unavailable Unavailable MandaNaomi cuenca MD Unavailable Unavailable MandaNaomi cuenca MD Unavailable Unavailable Naomi Du MD Unavailable Unavailable Naomi Du MD Unavailable Unavailable Naomi Du MD Unavailable Unavailable Naomi Du MD Unavailable Unavailable Naomi Du MD Unavailable Unavailable Naomi Du MD Unavailable Unavailable Naomi Du MD Unavailable Unavailable Naomi Du MD Unavailable Unavailable Naomi Du MD Unavailable Unavailable Naomi Du MD Unavailable Unavailable Naomi Du MD Unavailable Unavailable Naomi Du MD Unavailable Unavailable Naomi Du MD Unavailable Unavailable VIVIAN, MANNY PA Unavailable Unavailable VIVIAN, MANNY PA Unavailable Unavailable VIVIAN, MANNY PA Unavailable Unavailable VIVIAN, MANNY PA Unavailable Unavailable VIVIAN, MANNY PA Unavailable Unavailable VIVIAN, MANNY PA Unavailable Unavailable VIVIAN, MANNY PA Unavailable Unavailable VIVIAN, MANNY PA Unavailable Unavailable VIVIAN, MANNY PA Unavailable Unavailable VIVIAN, MANNY PA Unavailable Unavailable VIVIAN, MANNY PA Unavailable Unavailable VIVIAN, MANNY PA Unavailable Unavailable VIVIAN, MANNY PA Unavailable Unavailable VIVIAN, MANNY PA Unavailable Unavailable VIVIAN, MANNY PA Unavailable Unavailable VIVIAN, MANNY PA Unavailable Unavailable VIVIAN, MANNY PA Unavailable Unavailable VIVIAN, MANNY PA Unavailable Unavailable VIVIAN, MANNY PA Unavailable Unavailable VIVIAN, MANNY PA Unavailable Unavailable VIVIAN, MANNY PA Unavailable Unavailable VIVIAN, MANNY PA Unavailable Unavailable VIVIAN, MANNY PA Unavailable Unavailable VIVIAN, MANNY PA Unavailable Unavailable VIVIAN, MANNY PA Unavailable Unavailable VIVIAN, MANNY PA Unavailable Unavailable VIVIAN, MANNY PA Unavailable Unavailable VIVIAN, MANNY PA Unavailable Unavailable VIVIAN, MANNY PA Unavailable Unavailable VIVIAN, MANNY PA Unavailable Unavailable VIVIAN, MANNY PA Unavailable Unavailable VIVIAN, MANNY PA Unavailable Unavailable VIVIAN, MANNY PA Unavailable Unavailable VIVIAN, MANNY PA Unavailable Unavailable VIVIAN, MANNY PA Unavailable Unavailable VIVIAN, MANNY PA Unavailable Unavailable CAROLYN, A MARTIN DO Unavailable Unavailable CAROLYN, A MARTIN DO Unavailable Unavailable CAROLYN, A MARTIN DO Unavailable Unavailable CAROLYN, A MARTIN DO Unavailable Unavailable CAROLYN, A MARTIN DO Unavailable Unavailable CAROLYN, A MARTIN DO Unavailable Unavailable CAROLYN, A MARTIN DO Unavailable Unavailable CAROLYN, A MARTIN DO Unavailable Unavailable CAROLYN, A MARTIN DO Unavailable Unavailable CAROLYN, A MARTIN DO Unavailable Unavailable CAROLYN, A MARTIN DO Unavailable Unavailable CAROLYN, A AMRTIN DO Unavailable Unavailable CAROLYN, A MARTIN DO Unavailable Unavailable CAROLYN, A MARTIN DO Unavailable Unavailable CAROLYN, A MARTIN DO Unavailable Unavailable CAROLYN, A MARTIN DO Unavailable Unavailable CAROLYN, A MARTIN DO Unavailable Unavailable CAROLYN, A MARTIN DO Unavailable Unavailable CAROLYN, A MARTIN DO Unavailable Unavailable CAROLYN, A MARTIN DO Unavailable Unavailable CAROLYN, A MARTIN DO Unavailable Unavailable CAROLYN, A MARTIN DO Unavailable Unavailable Re-disclosure Warning The records that you are about to access may contain information from federally-assisted alcohol or drug abuse programs. If such information is present, then the following federally mandated warning applies: This information has been disclosed to you from records protected by federal confidentiality rules (42 CFR part 2). The federal rules prohibit you from making any further disclosure of this information unless further disclosure is expressly permitted by the written consent of the person to whom it pertains or as otherwise permitted by 42 CFR part 2. A general authorization for the release of medical or other information is NOT sufficient for this purpose. The Federal rules restrict any use of the information to criminally investigate or prosecute any alcohol or drug abuse patient.The records that you are about to access may contain highly sensitive health information, the redisclosure of which is protected by Article 27-F of the [facility] Public Health law. If you continue you may have access to information: Regarding HIV / AIDS; Provided by facilities licensed or operated by the [facility] Office of Mental Health; or Provided by the [facility] Office for People With Developmental Disabilities. If such information is present, then the following [facility] mandated warning applies: This information has been disclosed to you from confidential records which are protected by state law. State law prohibits you from making any further disclosure of this information without the specific written consent of the person to whom it pertains, or as otherwise permitted by law. Any unauthorized further disclosure in violation of state law may result in a fine or care home sentence or both. A general authorization for the release of medical or other information is NOT sufficient authorization for further disc losure. Allergies and Adverse Reactions Type Description Substance Reaction Status Data Source(s ) No Known Allergies No Known Allergies [facility] Allergy to substance No Known Allergies No known allergies (situation ) MARIBEL (Cristian Young MD [facility]) Allergy to substance No Known Allergies No known allergies (situation ) MARIBEL (Cristian Young MD [facility]) Allergy to substance No Known Allergies No known allergies (situation ) MARIBEL (Cristian Young MD [facility]) Allergy to substance No Known Allergies No known allergies (situation ) MARIBEL (Cristian Young MD [facility]) Allergy to substance No Known Allergies No known allergies (situation ) MARIBEL (Cristian Young MD [facility]) Family History Family Member Name Family Member Gender Family Member Status Date o f Status Description Data Source(s) Unknown Male Problem [facility] ([facility]) Unknown Unknown Problem [facility] Encounters Encounter Providers Location Date Indications Data Source(s ) OFFICE OUTPATIENT VISIT 15 MINUTES Attender: LAYLA KING Physical Therapy 02/25/2021 09:00:00 AM EST [facility] ([facility]) Outpatient Attender: MANNY momin 02/13/2021 12:45:00 PM EDT [facility] ([facility]) [place] [address] [facility] [place] [address] 01/28/2021 12:00:00 AM EDT eCW1 ([facility]) Outpatient [address] [facility] [place] [address] 01/11/2021 12:00:00 AM EDT eCW1 ([facility]) Unknown [address] [facility] [place] [address] 01/07/2021 12:00:00 AM EDT eCW1 ([facility]) Outpatient Attender: Babak Chairez/Josie/Geri zamudio/Tracy 01/01/2021 03:00:00 PM EDT [facility] OFFICE OUTPATIENT VISIT 15 MINUTES Attender: Donald Lindsey MD Phys ical Therapy 12/07/2020 03:45:00 PM EDT [facility] ([facility]) OFFICE OUTPATIENT VISIT 15 MINUTES Attender: LAYLA KING Physical Therapy 12/03/2020 04:45:00 PM EDT [facility] ([facility]) [place] [address] [facility] [address] 12/03/2020 12:00:00 AM EDT [facility]1 [facility] Outpatient Attender: LAYLA RABAGO PAConsultant: Raymond cantrell MD 11/15/2020 11:21:00 AM EDT - 11/15/2020 12:21:00 PM EDT [facility] [place] [address] [facility] [address] 11/12/2020 12:00:00 AM EDT eCW1 ([facility]) Office Visit Attender: Donald Lindsey MD Physical Therapy 2020 04:00:00 PM EDT [facility] ([facility]) OFFICE OUTPATIENT VISIT 15 MINUTES Attender: LAYLA KING Physical Therapy 10/15/2020 09:00:00 AM EDT [facility] ([facility]) Office Visit Attender: Shilpa HODGES PA-C Physical Therapy 10/05/2020 08:30:00 AM EDT [facility] ([facility]) [place] [address] [facility] [address] 09/24/2020 12:00:00 AM EDT [facility]CW1 ([facility]) [place] [address] [facility] [address] 09/10/2020 12:00:00 AM EDT [facility]CW1 [facility] Office Visit Attender: Shilpa HODGES PA-C Physical Therapy 09/07/2020 11:15:00 AM EDT [facility] ([facility]) [place] [address] [facility] [address] 09/07/2020 12:00:00 AM EDT [facility]CW1 ([facility]) [place] [address] [facility] [address] 09/03/2020 12:00:00 AM EDT eCW1 [facility] [place] [address] [facility] [address] 09/03/2020 12:00:00 AM EDT [facility] Office Visit Attender: Donald Lindsey MD Physical Therapy 2020 08:30:00 AM EDT [facility] ([facility]) [place] [address] [facility] [address] 08/24/2020 12:00:00 AM EDT eCW1 ([facility]) [place] [address] [facility] [address] 08/24/2020 12:00:00 AM EDT eCW1 ([facility]) Unknown [address] [facility] [place] [address] 08/09/2020 12:00:00 AM EDT eCW1 ([facility]) [place] [address] [facility] [address] 08/02/2020 12:00:00 AM EDT eCW1 ([facility]) [place] [address] [facility] [address] 08/01/2020 12:00:00 AM EDT eCW1 ([facility]) OFFICE OUTPATIENT VISIT 15 MINUTES Attender: LAYLA KING Physical Therapy 07/13/2020 04:00:00 PM EDT [facility] ([facility]) Unknown [address] [facility] [place] [address] 07/09/2020 12:00:00 AM EDT eCW1 ([facility]) Outpatient [address] [facility] [place] [address] 07/05/2020 12:00:00 AM EDT eCW1 ([facility]) Unknown [address] [facility] [place] [address] 07/05/2020 12:00:00 AM EDT eCW1 ([facility]) Outpatient Attender: Donald Lindsey MD Physical Therapy 06/19/2020 0 2:45:00 PM EST [facility] ([facility]) Outpatient Attender: Donald Lindsey MD Physical Therapy 05/30/2020 0 1:45:00 PM EST [facility] ([facility] Outpatient Attender: Huyen KING 021 05:27:17 PM EST - 05/23/2020 06:44:43 PM EST DocuTap ([facility] ) [place] [address] [address] 05/10/2020 12:00:00 AM EST [facility]CW[facility] [place] [address] [address] 05/09/2020 12:00:00 AM EST [facility]CW1 [facility]) [place] [address] [address] 05/09/2020 12:00:00 AM EST eCW1 ([facility]) [place] [address] [address] 05/04/2020 12:00:00 AM EST eCW1 ([facility]) [place] [address] [address] 04/27/2020 12:00:00 AM EST eCW1 ([facility]) <td ID="encounterTypeDescriptionID0">3 - 4 Week Follow-Up</td><td>Martin Gonzalez DO</td><td>Cristian Kapoor MD [facility]</td><td>04/19/2020</td><td>7:15AM</td><td>8:11AM</td><td><content ID="encounterDiagnosisID0-0">Corneal Scar</content>, <content ID="encounterDiagnosisID0-1">Dry Eye Syndrome</content></td>Outpatient Attender: MARTIN Moser MD [facility] 04/19/2020 07:15:00 AM EST - 04/19/2020 08:11:00 AM EST Dry Eye SyndromeCorneal ScarDry Eye Synd romeCorneal ScarDry Eye SyndromeCorneal Scar [place] (Cristian Young MD [facility]) Dry Eye Syndrome Corneal Scar Dry Eye Syndrome Corneal Scar Dry Eye Syndrome Corneal Scar [place] [address] [address] 04/16/2020 12:00:00 AM EST eCW1 ([facility]) OFFICE OUTPATIENT VISIT 15 MINUTES Attender: LAYLA KING Physical Therapy 04/06/2020 03:00:00 PM EST MEDENT ([facility]) [place] [address] [address] 03/27/2020 12:00:00 AM EST eCW1 ([facility]) <td ID="encounterTypeDescriptionID1">1 M onth Post OP</td><td>Martin Gonzalez DO</td><td>Cristian Kapoor MD [facility]</td><td>03/21/2020</td><td>7:26AM</td><td>8:34AM</td><td><content ID="encounterDiagnosisID1-0">Corneal Scar</content></td>Outpatient Attender: MARTIN Moser MD [facility] 03/21/2020 07:26:00 AM EST - 03/21/2020 08:34:00 AM EST Corneal ScarCorneal ScarCorneal ScarCorneal Scar MARIBEL (Cristian Young MD [facility]) Corneal Scar Corneal Scar Corneal Scar Corneal Scar Outpatient [address] [address] 03/09/2020 12:00:00 AM EST eCW1 ([facility]) <td ID="encounterTypeDescriptionID2">1 W [place] Post OP</td><td>Martin Gonzalez DO</td><td>Cristian Kapoor MD PLL</td><td>02/24/2020</td><td>1:14PM</td><td>2:25PM</td><td></td>Outpatient Attender: MARTIN Moser MD PLL 02/24/2020 01:14:00 PM EST - 02/24/2020 02:25:00 PM EST MARIBEL (Cristian Young MD [facility]) OFFICE OUTPATIENT VISIT 15 MINUTES Attender: LAYLA KING Physical Therapy 02/17/2020 04:00:00 PM EDT MEDENT ([facility] ) <td ID="encounterTypeDescriptionID3">1 D ay Post OP</td><td>Martin Gonzalez DO</td><td>Cristian Kapoor MD [facility]</td><td>02/17/2020</td><td>1:17PM</td><td>2:37PM</td><td></td>Outpatient Attender: MARTIN Moser MD [facility] 02/17/2020 01:17:00 PM EDT - 02/17/2020 02:37:00 PM EDT MARIBEL (Cristian Young MD [facility]) Outpatient<td ID="encounterTypeDescripti onID4">SUPERFICIAL KERATECTOMY</td><td>Martin Gonzalez DO</td><td>[facility]</td><td>02/16/2020</td><td>6:52AM</td><td>6:52AM</td><td></td> Attender: MARTIN GONZALEZ DO [facility] 02/16/2020 06:52:00 AM EDT - 02/16/2020 06:52:00 AM EDT MARIBEL (Cristian ashraf MD [facility]) <td ID="encounterTypeDescriptionID5">1 W K PREOP FOR SURGERY</td><td>Martin Gonzalez DO</td><td>Cristian Kapoor MD [facility]</td><td>02/08/2020</td><td>2:32PM</td><td>3:52PM</td><td></td>Outpatient Attender: MARTIN Moser MD [facility] 02/08/2020 02:32:00 PM EDT - 02/08/2020 03:52:00 PM EDT MARIBEL (Cristian Young MD [facility]) Unknown [facility] [address] 02/07/2020 12:00:00 AM EDT eCW1 ([facility]) Outpatient Attender: Donald Lindsey MD Physical Therapy 01/04/2020 0 4:00:00 PM EDT MEDYENY ([facility]) Immunizations Vaccine Date Status Description Data Source(s) COVID-19 VACCINE Pfizer 07/11/2020 12:00:00 AM EDT completed NYSIIS Vaccine Series Complete: YESThis Data wa s Submitted to [facility] Via [employer]. COVID-19 dose #2 given elsewhere Unspecified 07/05/2020 09:0 1:00 AM EDT completed eCW1 ([facility]) COVID-19 dose #2 given elsewhere Unspecified 07/05/2020 09:0 1:00 AM EDT completed eCW1 ([facility]) COVID-19 dose #2 given elsewhere Unspecified 07/05/2020 09:0 1:00 AM EDT completed eCW1 ([facility]) COVID-19 dose #2 given elsewhere Unspecified 07/05/2020 09:0 1:00 AM EDT completed eCW1 ([facility]) COVID-19 dose #2 given elsewhere Unspecified 07/05/2020 09:0 1:00 AM EDT completed eCW1 ([facility]) COVID-19 dose #2 given elsewhere Unspecified 07/05/2020 09:0 1:00 AM EDT completed eCW1 ([facility]) COVID-19 dose #1 given elsewhere Unspecified 06/20/2020 09:0 0:00 AM EST completed eCW1 ([facility]) COVID-19 dose #1 given elsewhere Unspecified 06/20/2020 09:0 0:00 AM EST completed eCW1 ([facility]) COVID-19 dose #1 given elsewhere Unspecified 06/20/2020 09:0 0:00 AM EST completed eCW1 ([facility]) COVID-19 dose #1 given elsewhere Unspecified 06/20/2020 09:0 0:00 AM EST completed eCW1 ([facility]) COVID-19 dose #1 given elsewhere Unspecified 06/20/2020 09:0 0:00 AM EST completed eCW1 ([facility]) COVID-19 dose #1 given elsewhere Unspecified 06/20/2020 09:0 0:00 AM EST completed eCW1 ([facility]) COVID-19 VACCINE Pfizer 06/20/2020 12:00:00 AM EST completed NYSIIS Vaccine Series Complete: NOThis Data was Submitted to [facility] Via [employer]. influenza, recombinant, quadrIvalent,injectable, prese rvative free 03/09/2020 11:17:00 AM EST [facility], recombinant, quadrIvalent,injectable, prese rvative free 03/09/2020 11:17:00 AM EST completed [facility] influenza, recombinant, quadrIvalent,injectable, prese rvative free 03/09/2020 11:17:00 AM EST completed [facility] influenza, recombinant, quadrIvalent,injectable, prese rvative free 03/09/2020 11:17:00 AM EST completed [facility] influenza, recombinant, quadrIvalent,injectable, prese rvative free 03/09/2020 11:17:00 AM EST completed [facility] influenza, recombinant, quadrIvalent,injectable, prese rvative free 03/09/2020 11:17:00 AM EST completed [facility] influenza, recombinant, quadrIvalent,injectable, prese rvative free 03/09/2020 11:17:00 AM EST completed [facility] influenza, recombinant, quadrIvalent,injectable, prese rvative free 03/09/2020 11:17:00 AM EST completed [facility] influenza, recombinant, quadrIvalent,injectable, prese rvative free 03/09/2020 11:17:00 AM EST completed [facility] influenza, recombinant, quadrIvalent,injectable, prese rvative free 03/09/2020 11:17:00 AM EST completed [facility] influenza, recombinant, quadrIvalent,injectable, prese rvative free 03/09/2020 11:17:00 AM EST completed [facility] influenza, recombinant, quadrIvalent,injectable, prese rvative free 03/09/2020 11:17:00 AM EST completed [facility] influenza, recombinant, quadrIvalent,injectable, prese rvative free 03/09/2020 11:17:00 AM EST completed [facility] influenza, recombinant, quadrIvalent,injectable, prese rvative free 03/09/2020 11:17:00 AM EST completed [facility] influenza, recombinant, quadrIvalent,injectable, prese rvative free 03/09/2020 11:17:00 AM EST completed [facility] influenza, recombinant, quadrIvalent,injectable, prese rvative free 03/09/2020 11:17:00 AM EST completed [facility] influenza, recombinant, quadrIvalent,injectable, prese rvative free 03/09/2020 11:17:00 AM EST completed [facility] influenza, recombinant, quadrIvalent,injectable, prese rvative free 03/09/2020 11:17:00 AM EST completed [facility] influenza, recombinant, quadrIvalent,injectable, prese rvative free 03/09/2020 11:17:00 AM EST completed [facility] influenza, recombinant, quadrIvalent,injectable, prese rvative free 03/09/2020 11:17:00 AM EST completed [facility] influenza, recombinant, quadrIvalent,injectable, prese rvative free 03/09/2020 11:17:00 AM EST completed [facility] influenza, recombinant, quadrIvalent,injectable, prese rvative free 03/09/2020 11:17:00 AM EST completed [facility]CW[facility] influenza, recombinant, quadrIvalent,injectable, prese rvative free 03/09/2020 11:17:00 AM EST completed [facility] influenza, recombinant, quadrIvalent,injectable, prese rvative free 03/09/2020 11:17:00 AM EST completed [facility] influenza, recombinant, quadrIvalent,injectable, prese rvative free 03/09/2020 11:17:00 AM EST completed [facility] influenza, recombinant, quadrIvalent,injectable, prese rvative free 03/09/2020 11:17:00 AM EST [facility] Medications Medication Brand Name Start Date Product Form Dose Route Admi nistrative Instructions Pharmacy Instructions Status Indications Reaction Description Data Source(s) Magnesium Hydroxide 80 MG/ML Oral Suspension Milk Of Magnelvie a 01/01/2021 12:00:00 AM EDT ORAL active M EDENT ([facility], ) Suprep Bowel Prep Kit Suprep Bowel Prep Kit 01/01/2021 12:00:00 AM EDT active MEDENT ([facility], ) Sucralfate 1000 MG Oral Tablet [Carafate] Carafate 1 GM Abbie fate 1 09/03/2020 12:00:00 AM EDT 1.0 {tablet_on_an_empty_stomach} active Carafate 1 GM eCW1 ([facility]) Sucralfate 1000 MG Oral Tablet [Carafate] Carafate 1 GM Abbie fate 1 09/03/2020 12:00:00 AM EDT 1.0 {tablet_on_an_empty_stomach} active Carafate 1 GM eCW1 ([facility]) Sucralfate 1000 MG Oral Tablet [Carafate] Carafate 1 GM Abbie fate 1 GM 09/03/2020 12:00:00 AM EDT 1.0 {tablet_on_an_empty_stomach} active Carafate 1 GM eCW1 ([facility]) Sucralfate 1000 MG Oral Tablet [Carafate] Carafate 1 GM Abbie fate 1 GM 09/03/2020 12:00:00 AM EDT 1.0 {tablet_on_an_empty_stomach} active Carafate 1 GM eCW1 ([facility]) Sucralfate 1000 MG Oral Tablet [Carafate] Carafate 1 GM Abbie fate 1 GM 09/03/2020 12:00:00 AM EDT 1.0 {tablet_on_an_empty_stomach} active Carafate 1 GM eCW1 ([facility]) Sucralfate 1000 MG Oral Tablet [Carafate] Carafate 1 GM Abbie fate 1 GM 09/03/2020 12:00:00 AM EDT 1.0 {tablet_on_an_empty_stomach} active Carafate 1 GM eCW1 ([facility]) Sucralfate 1000 MG Oral Tablet [Carafate] Carafate 1 GM Abbie fate 1 09/03/2020 12:00:00 AM EDT 1.0 {tablet_on_an_empty_stomach} active Carafate 1 GM eCW1 ([facility]) Sucralfate 1000 MG Oral Tablet [Carafate] Carafate 1 GM Abbie fate 1 09/03/2020 12:00:00 AM EDT 1.0 {tablet_on_an_empty_stomach} active Carafate 1 GM eCW1 ([facility]) Sucralfate 1000 MG Oral Tablet [Carafate] Carafate 1 GM Abbie fate 1 09/03/2020 12:00:00 AM EDT 1.0 {tablet_on_an_empty_stomach} active Carafate 1 GM eCW1 ([facility]) Sucralfate 1000 MG Oral Tablet [Carafate] Carafate 1 GM Abbie fate 1 GM 09/03/2020 12:00:00 AM EDT 1.0 {tablet_on_an_empty_stomach} active Carafate 1 GM eCW1 ([facility]) Acetaminophen 300 MG / Codeine Phosphate 30 MG Oral Tablet [Tylenol with Codeine] Tylenol With Codeine #3 08/28/2020 12:00:00 AM EDT ORAL active MEDENT ([facility]) Rybelsus 14 MG Rybelsus 14 MG 07/05/2020 12:00:00 AM EDT active Rybelsus 14 MG eCW1 ([facility]) Rybelsus 14 MG Rybelsus 14 MG 07/05/2020 12:00:00 AM EDT active Rybelsus 14 MG eCW1 ([facility]) Rybelsus 14 MG Rybelsus 14 MG 07/05/2020 12:00:00 AM EDT active Rybelsus 14 MG eCW1 ([facility]) Rybelsus 7 MG Rybelsus 7 MG 07/05/2020 12:00:00 AM EDT active Rybelsus 7 MG eCW1 ([facility]) Rybelsus 7 MG Rybelsus 7 MG 07/05/2020 12:00:00 AM EDT active Rybelsus 7 MG eCW1 ([facility]) Rybelsus 7 MG Rybelsus 7 MG 07/05/2020 12:00:00 AM EDT active Rybelsus 7 MG eCW1 ([facility]) prednisolone acetate 10 MG/ML Ophthalmic Suspension prednisoLONE Acetate 1% Ophthalmic Suspension prednisoLONE Acetate 1% Ophthalmic Suspension 02/24/20 20 12:00:00 AM EST active prednisolone acetate 10 MG/ML Ophthalmic Suspension MARIBEL (Cristian Young MD [facility]) moxifloxacin 5 MG/ML Ophthalmic Solution Moxifloxacin HCl 0.5% Ophthalmic Solution Moxifloxacin HCl 0.5% Ophthalmic Solution 02/08/2020 12:00:00 AM EDT aborted moxifloxacin 5 MG/ML Oph thalmic Solution MARIBEL (Cristian Young MD [facility]) Insurance Providers Payer name Policy type / Coverage type Policy ID Covered democrat ID Covered democrat's relationship to cyr Policy Cyr Plan Information [facility] [employer] [facility] () Workers Compensation [id number] Self [id number] [facility] [employer] [facility] () Workers Compensation [id number] Self [id number] [facility] Part B [id number] Self [id number] [facility] Part B [id number] Self [id number] [facility]) Workers Compensation [id number] Self [id number] [facility]) Workers Compensation [id number] Self [id number] [facility] [id number] SP [id number] [employer] [place] [employer] [id number] SP [id number] [employer] [place] [employer] [id number] SP [id number] Workers Comp Carrier I WorkComp Health Claim [id number] [employer] [id number] Needs Workers Comp Information WorkComp Health Claim [id number] Employee [id number] [employer]D [id number] [employer] O [id number] S [id number] [employer] O [id number] S [id number] [facility] [employer] [place] - [employer] Other 0 [id number] Self 0 [facility] Employees [employer] - [employer] Other 0 [id number] Self 0 [place] Plan P [id number] S [id number] 0 ANSI-Commercial [id number] ANSI-Commercial [id number] ANSI-Commercial [id number] ANSI-Commercial [id number] ANSI-Commercial [id number] ANSI-Commercial [id number] ANSI-Commercial [id number] ANSI-Commercial [id number] ANSI-Commercial [id number]-[id number]-[id number] ANSI-Commercial [id number]-[id number] ANSI-Commercial [id number] ANSI-Commercial [id number] [id number] ANSI-Commercial qsd978rg-c5qz-617t-[id number]-[id number]-[id number]-[id number] ANSI-Commercial [id number]-[id number] [id number] ANSI-Commercial [id number] ANSI-Commercial [id number] [id number] ANSI-Commercial [id number] ANSI-Commercial [id number]-[id number]-[id number] ANSI-Commercial [id number]-[id number] ANSI-Commercial [id number]-[id number]-[id number] ANSI-Commercial f5hriybv-41ff-[id number]-[id number] v8tqhmjg-21lx-[id number]-[id number] ANSI-Commercial [id number] ANSI-Commercial [id number]-[id number]-[id number]-9h92-oadm-[id number] ANSI-Commercial [id number]-[id number] [id number]-[id number] [facility] [id number] SP [id number] ANSI-Commercial [id number] ANSI-Commercial [id number] [place] P [id number] S [id number] ANSI-Commercial [id number] ANSI-Commercial [id number]-472l-[id number]-472i-[id number] ANSI-Commercial [id number] ANSI-Commercial [id number] [facility] [place] Commercial [id number] Self [id number] D GHI S [id number] S [id number] D Group Health Preferred P [id number] S [id number] [employer] O [id number] S [id number] [facility] ([facility] O [id number] S [id number] [employer] [place] [id number] SP [id number] [facility] [id number] SP [id number] [facility] [id number] SP [id number] [facility] [employer] - [employer] Other 0 [id number] Self 0 [facility] Employees [employer]) - [employer] Other 0 [id number] Self 0 STATE INS FUND -O/P [id number] 18 [id number] STATE INS[employer]ANCE FUND [id number] SP [id number] STATE INS[employer]ANCE FUND [id number] SP [id number] STATE INS[employer]ANCE [employer]D [id number] SP [id number] [facility] Employees [employer] - [employer] Other 0 [id number] Self 0 [employer] INS[employer]D [id number] SP [id number] Problems, Conditions, and Diagnoses Code Display Name Description Problem Type Effective Dates Data Source(s) M7541 Impingement syndrome of right shoulder I mpingement syndrome of right shoulder Diagnosis 11/15/2020 11:21:00 AM EDT [facility] Z12.5 943325208 Prostate cancer screening Problem 07/05/2020 12:00:00 AM EDT eCW1 ([facility]) Surgeries/Procedures Procedure Description Date Indications Data Source(s) OFFICE OUTPATIENT VISIT 15 MINUTES 02/25/2021 12:00:00 AM EST MEDENT ([facility]) CLTX PHLNGL FX PROX/MIDDLE PX/F/T W/O MANJ EA 02/26/20 12:00:00 AM EST MEDENT ([facility] ) RADEX HAND MINIMUM 3 VIEWS 02/25/2021 12:00:00 AM EST MEDENT ([facility] ) OFFICE OUTPATIENT NEW 30 MINUTES 02/13/2021 12:00:00 A M EDT MEDENT ([facility]) THERAPEUTIC PX 1/> AREAS EACH 15 MIN EXERCISES 12:00:00 AM EDT MEDENT ([facility] ) THERAPEUTIC PX 1/> AREAS EACH 15 MIN EXERCISES 12:00:00 AM EDT MEDENT ([facility] ) APPL MODALITY 1/> AREAS ELEC STIMJ EA 15 MIN 12:00:00 AM EDT MEDENT ([facility] ) THERAPEUTIC PX 1/> AREAS EACH 15 MIN EXERCISES 12:00:00 AM EDT MEDENT ([facility]) THERAPEUTIC PX 1/> AREAS EACH 15 MIN EXERCISES 12:00:00 AM EDT MEDENT ([facility] ) OFFICE OUTPATIENT NEW 45 MINUTES 01/01/2021 12:00:00 A M EDT MEDENT ([facility], ) THERAPEUTIC PX 1/> AREAS EACH 15 MIN EXERCISES 12:00:00 AM EDT MEDENT ([facility] ) APPL MODALITY 1/> AREAS ELEC STIMJ EA 15 MIN 12:00:00 AM EDT MEDENT ([facility] ) THERAPEUTIC PX 1/> AREAS EACH 15 MIN EXERCISES 12:00:00 AM EDT MEDENT ([facility] ) APPLICATION MODALITY 1/> AREAS HOT/COLD PACKS 12/20/19 12:00:00 AM EDT MEDENT ([facility] ) APPL MODALITY 1/> AREAS ELEC STIMJ EA 15 MIN 12:00:00 AM EDT MEDENT ([facility] ) THERAPEUTIC PX 1/> AREAS EACH 15 MIN EXERCISES 12:00:00 AM EDT MEDENT ([facility] ) THERAPEUTIC PX 1/> AREAS EACH 15 MIN EXERCISES 12:00:00 AM EDT MEDENT ([facility] ) THERAPEUTIC PX 1/> AREAS EACH 15 MIN EXERCISES 12:00:00 AM EDT MEDENT ([facility] ) APPL MODALITY 1/> AREAS ELEC STIMJ EA 15 MIN 12:00:00 AM EDT MEDENT ([facility] ) APPLICATION MODALITY 1/> AREAS HOT/COLD PACKS 12/14/19 21 12:00:00 AM EDT MEDENT ([facility] ) THERAPEUTIC PX 1/> AREAS EACH 15 MIN EXERCISES 12:00:00 AM EDT MEDENT ([facility] ) APPLICATION MODALITY 1/> AREAS HOT/COLD PACKS 12/12/19 21 12:00:00 AM EDT MEDENT ([facility] ) APPL MODALITY 1/> AREAS ELEC STIMJ EA 15 MIN 12:00:00 AM EDT MEDENT ([facility] ) THERAPEUTIC PX 1/> AREAS EACH 15 MIN EXERCISES 12:00:00 AM EDT MEDENT ([facility]) THERAPEUTIC PX 1/> AREAS EACH 15 MIN EXERCISES 12:00:00 AM EDT [facility] ([facility]) OFFICE OUTPATIENT VISIT 15 MINUTES 12/07/2020 12:00:00 AM EDT [facility] ([facility]) THERAPEUTIC PX 1/> AREAS EACH 15 MIN EXERCISES 12:00:00 AM EDT [facility] ([facility]) THERAPEUTIC PX 1/> AREAS EACH 15 MIN EXERCISES 12:00:00 AM EDT [facility] ([facility]) Re-Eval Of PT Established Plan Of Care 20Mins Face To Face P T/Fam 12/04/2020 12:00:00 AM EDT [facility] ([facility]) OFFICE OUTPATIENT VISIT 15 MINUTES 12/03/2020 12:00:00 AM EDT [facility] ([facility]) OFFICE OUTPATIENT VISIT 15 MINUTES 10/15/2020 12:00:00 AM EDT [facility] ([facility] ) THERAPEUTIC PX 1/> AREAS EACH 15 MIN EXERCISES 12:00:00 AM EDT [facility] ([facility]) Re-Eval Of PT Established Plan Of Care 20Mins Face To Face P T/Fam 10/10/2020 12:00:00 AM EDT [facility] ([facility]) APPL MODALITY 1/> AREAS ELEC STIMJ EA 15 MIN 12:00:00 AM EDT [facility] ([facility]) APPLICATION MODALITY 1/> AREAS HOT/COLD PACKS 10/11/19 21 12:00:00 AM EDT [facility] ([facility]) THERAPEUTIC PX 1/> AREAS EACH 15 MIN EXERCISES 12:00:00 AM EDT [facility] ([facility]) APPLICATION MODALITY 1/> AREAS HOT/COLD PACKS 10/06/19 21 12:00:00 AM EDT [facility] ([facility]) APPL MODALITY 1/> AREAS ELEC STIMJ EA 15 MIN 12:00:00 AM EDT [facility] ([facility]) THERAPEUTIC PX 1/> AREAS EACH 15 MIN EXERCISES 021 12:00:00 AM EDT [facility] ([facility]) THERAPEUTIC PX 1/> AREAS EACH 15 MIN EXERCISES 021 12:00:00 AM EDT [facility] ([facility]) APPLICATION MODALITY 1/> AREAS HOT/COLD PACKS 10/03/19 21 12:00:00 AM EDT [facility] ([facility] APPL MODALITY 1/> AREAS ELEC STIMJ EA 15 MIN 1 12:00:00 AM EDT [facility] ([facility] ) THERAPEUTIC PX 1/> AREAS EACH 15 MIN EXERCISES 021 12:00:00 AM EDT [facility] ([facility] ) THERAPEUTIC PX 1/> AREAS EACH 15 MIN EXERCISES 12:00:00 AM EDT [facility] ([facility] APPLICATION MODALITY 1/> AREAS HOT/COLD PACKS 09/28/19 21 12:00:00 AM EDT [facility] ([facility] ) APPL MODALITY 1/> AREAS ELEC STIMJ EA 15 MIN 1 12:00:00 AM EDT [facility] ([facility] ) THERAPEUTIC PX 1/> AREAS EACH 15 MIN EXERCISES 021 12:00:00 AM EDT [facility] ([facility]) THERAPEUTIC PX 1/> AREAS EACH 15 MIN EXERCISES 021 12:00:00 AM EDT [facility] ([facility]) THERAPEUTIC PX 1/> AREAS EACH 15 MIN EXERCISES 021 12:00:00 AM EDT [facility] ([facility]) APPL MODALITY 1/> AREAS ELEC STIMJ EA 15 MIN 1 12:00:00 AM EDT [facility] ([facility]) APPLICATION MODALITY 1/> AREAS HOT/COLD PACKS 09/25/19 21 12:00:00 AM EDT [facility] ([facility]) THERAPEUTIC PX 1/> AREAS EACH 15 MIN EXERCISES 021 12:00:00 AM EDT [facility] ([facility]) APPLICATION MODALITY 1/> AREAS HOT/COLD PACKS 09/21/19 21 12:00:00 AM EDT [facility] ([facility]) APPL MODALITY 1/> AREAS ELEC STIMJ EA 15 MIN 1 12:00:00 AM EDT [facility] ([facility] ) THERAPEUTIC PX 1/> AREAS EACH 15 MIN EXERCISES 12:00:00 AM EDT [facility] ([facility] ) THERAPEUTIC PX 1/> AREAS EACH 15 MIN EXERCISES 12:00:00 AM EDT [facility] ([facility] ) APPLICATION MODALITY 1/> AREAS HOT/COLD PACKS 09/15/19 12:00:00 AM EDT [facility] ([facility] ) APPL MODALITY 1/> AREAS ELEC STIMJ EA 15 MIN 12:00:00 AM EDT [facility] ([facility] ) THERAPEUTIC PX 1/> AREAS EACH 15 MIN EXERCISES 12:00:00 AM EDT [facility] ([facility] THERAPEUTIC PX 1/> AREAS EACH 15 MIN EXERCISES 12:00:00 AM EDT [facility] ([facility] Physical Therapy Eval - Low Complexity 09/10/2020 12:0 0:00 AM EDT [facility] ([facility] ) Arthroscopy Knee W/Meniscectomy Inc Chondroplasty (Med & Lat eral) 08/28/2020 12:00:00 AM EDT [facility] ([facility] OFFICE OUTPATIENT VISIT 15 MINUTES 07/13/2020 12:00:00 AM EDT [facility] ([facility] OFFICE OUTPATIENT VISIT 25 MINUTES 06/19/2020 12:00:00 AM EST [facility] ([facility] MRI Lower Extremity Any Joint 06/11/2020 12:00:[address] [facility] ([facility] ) OFFICE OUTPATIENT VISIT 25 MINUTES 05/30/2020 12:00:00 AM EST [facility] ([facility] ) OFFICE OUTPATIENT VISIT 15 MINUTES 04/06/2020 12:00:00 AM EST [facility] ([facility] ) Surgical / procedural history Shoulder sx 2006, Knee sx 2008, Cholecystectomy 2014, PRK surgery over [address] Nixon, Touch up laser right eye by [facility], Superficial keratectomy right eye by Dr. Gonzalez 02/16/2020 Surgical / procedural history Shoulder sx 2006, Knee sx 2008, Cholecystectomy 2014, PRK surgery over [address] Nixon, Touch up laser right eye by [facility], Superficial keratectomy right eye by Dr. Gonzalez 02/16/2020 03/21/2020 12:00:00 AM EST MARIBEL (Cristian Young MD [facility]) Immunization: Flublok Quadrivalent (18 years & older) 0.5mL IM (Influenza) 03/09/2020 12:00:00 AM EST eCW1 ([facility]) Surgical / procedural history Shoulder sx 2006, Knee sx 2008, Cholecystectomy 2014, PRK surgery over 10 years ago, Superficial keratectomy right eye by Dr. Gonzalez 02/16/2020 Surgical / procedural history Shoulder sx 2006, Knee sx 2008, Cholecystectomy 2014, PRK surgery over 10 years ago, Superficial keratectomy right eye by Dr. Gonzalez 02/16/2020 02/17/2020 12:00:00 AM EDT MARIBEL (Cristian Young MD [facility]) EXCISION LESION CORNEA XCP PTERYGIUM Excision of Corne al Lesion (keratec) (Right Side) 02/16/2020 12:00:00 AM EDT MARIBEL (Juan Carlos Young MD [facility]) Surgical / procedural history Shoulder sx 2006, Knee sx 2008, Cholecystectomy 2014, PRK surgery over 10 years ago Surgical / procedural history Shoulder sx 2006, Knee sx 2008, Cholecystectomy 2014, PRK surgery over 10 years ago 02/08/2020 12:00:00 AM EDT MARIEBL (Cristian ashraf MD [facility]) Intermediate Eye Exam Established Patient Intermediate Eye Exam Established Patient 02/08/2020 12:00:00 AM EDT MARIBEL (Juan Carlos Young MD [facility]) Intermediate Eye Exam Established Patient Intermediate Eye Exam Established Patient 02/08/2020 12:00:00 AM EDT MARIBEL (Juan Carlos Young MD [facility]) ARTHROCENTESIS ASPIR&/INJECTION MAJOR JT/BURSA 020 12:00:00 AM EDT [facility] ([facility] Results ID Date Data Source [id number] 01/15/2021 01:52:00 PM EDT [facility] Name Value Range Interpretation Code Description Data Jessica rce(s) Supporting Document(s) Laboratory test finding (navigational concept) Laboratory test r esult Normal (applies to non-numeric results) MEDYENY ([facility] ) SEE SEPARATE REPORT Testing performed at reference lab . Report copy to follow on a separate form. 01/23/21 REF LAB#:[id number] Parathyrin.intact [Mass/volume] in Serum or Plasma 37.7 pg/mL 18.5-88.0 Normal (applies to non-numeric results) [facility] ([facility]) 01/22/21 (ThuJan 22) 11:34 AM BABAK C HARLEBOIS Ordered by PCP. Calcidiol [Mass/volume] in Serum or Plasma 27.3 ng/mL 30.0- 100.0 Below low normal [facility] ([facility]) 01/22/21 (ThuJan 22) 11:35 AM BABAK C HARLEBOIS Ordered by PCP. Ferritin [Mass/volume] in Serum or Plasma 100 ng/mL 26-388 Normal (applies to non-numeric results) [facility] ([facility]) 01/22/21 (ThuJan 22) 11:35 AM BABAK C HARLEBOIS Ordered by PCP. C reactive protein [Mass/volume] in Serum or Plasma by High sensitivity method 0.30 mg/dL 0.00-0.30 Normal (applies to non-numeric results) [facility] ([facility]) 01/22/21 (ThuJan 22) 11:35 AM BABAK C HARLEBOIS Ordered by PCP. ID Date Data Source [id number] 01/15/2021 01:52:00 PM EDT [facility] ([facility]) Name Value Range Interpretation Code Description Data Jessica rce(s) Supporting Document(s) Triglycerides Level 149 mg/dL Normal (applies to non-nume eileen results) [facility] ([facility]) Cholesterol Level 198 mg/dL Normal (applies to non-numeri c results) [facility] ([facility]) HDL Cholesterol 45 mg/dL Normal (applies to non-numeric results) [facility] ([facility]) Cholesterol Risk Ratio 4.400 Normal (applies to non-n umeric results) [facility]) 01/22/21 (ThuJan 22) 11:34 AM BABAK C HARLEBOIS Ordered by PCP. Non-HDL-C 153 mg/dL Normal (applies to non-numeric resul ts) [facility] ([facility]) LDL Cholesterol 123 mg/dL Above high normal [facility] ([facility]) ID Date Data Source [id number] 01/15/2021 01:52:00 PM EDT [facility] ([facility]) Name Value Range Interpretation Code Description Data Jessica rce(s) Supporting Document(s) Glucose, Fasting 110 mg/dL 70-100 Above high [facility] Blood Urea Nitrogen 10 mg/dL 7-18 Normal (applies to non-nume eileen results) [facility] ([facility]) Creatinine For GFR 0.93 mg/dL 0.70-1.30 Normal (applies to non -numeric results) [facility] ([facility]) Sodium Level 144 meq/L 136-145 Normal (applies to non-numeric res ults) [facility] ([facility]) Glomerular Filtration Rate Laboratory test result Normal (applies to non- numeric results) [facility]) <content>Units are mL/min/1.73 m2</content>
<content></content>
<content>Chronic Kidney Disease Staging per NKF:</content>
<content></content>
<content>Stage I & II GFR >=60 Normal to Mildly Decreased</content>
<content>Stage III GFR 30- 59 Moderately Decreased</content>
<content>Stage IV GFR 15-29 Severely Decreased</content>
<content>Stage V GFR <15 Very Little GFR Left</content>
<content>ESRD GFR <15 on PRODUCTION LINE</content>
<content></content> Carbon Dioxide Level 30 meq/L 21-32 Normal (applies to non-num sheila results) [facility] ([facility]) Chloride Level 105 meq/L 98-107 Normal (applies to non-numeric r esults) [facility] ([facility]) Potassium Serum 4.7 meq/L 3.5-5.1 Normal (applies to non-numeric results) [facility] ([facility]) Anion Gap 9 meq/L 8-16 Normal (applies to non-numeric resul ts) [facility] ([facility]) Ast/Sgot 21 U/L 7-37 Normal (applies to non-numeric resul ts) [facility]) Calcium Level 9.3 mg/dL 8.5-10.1 Normal (applies to non-numeric re sults) [facility]) Bilirubin,Total 0.6 mg/dL 0.2-1.0 Normal (applies to non-numeric results) [facility] ([facility]) Alt/SGPT 71 U/L 12-78 Normal (applies to non-numeric resul ts) [facility]) Alkaline Phosphatase 70 U/L 45-117 Normal (applies to non-num sheila results) [facility] ([facility]) Total Protein 7.4 GM/DL 6.4-8.2 Normal (applies to non-numeric re sults) [facility] ([facility]) Albumin/Globulin Ratio 1.2 Normal (applies to non-n umeric results) [facility]) 01/22/21 (ThuJan 22) 11:34 AM BABAK C HARLEBOIS Ordered by PCP. Albumin 4.1 GM/DL 3.2-5.2 Normal (applies to non-numeric resul ts) [facility]) ID Date Data Source [id number] 01/15/2021 01:52:00 PM EDT [facility] ([facility]) Name Value Range Interpretation Code Description Data Jessica rce(s) Supporting Document(s) Erythrocyte sedimentation rate by Westergren method 5 mm/hr 0-20 Normal (applies to non-numeric results) [facility] ([facility]) 01/23/21 (ThuJan 23) 04:34 PM BABAK C HARLEBOIS Ordered by PCP. ID Date Data Source [id number] 01/15/2021 01:52:00 PM EDT [facility]) Name Value Range Interpretation Code Description Data Jessica rce(s) Supporting Document(s) Hemoglobin 15.8 g/dL 13.5-17.5 Normal (applies to non-numeric resul ts) [facility] White Blood Count 8.3 10 4.0-10.0 Normal (applies to non-numeri c results) [facility], ) Red Blood Count 5.05 10 4.30-6.10 Normal (applies to non-numeric results) [facility], ) Hematocrit 45.5 % 42.0-52.0 Normal (applies to non-numeric resul ts) [facility]) Mean Corpuscular Hemoglobin 31.3 pg 27.0-33.0 Norm al (applies to non-numeric results) [facility]) Mean Corpuscular Volume 90.1 fl 80.0-96.0 Normal ( applies to non-numeric results) [facility]) Mean Corpuscular HGB Conc 34.7 g/dL 32.0-36.5 Normal (applies to non-numeric results) [facility]) Red Cell Distribution Width 12.5 % 11.5-14.5 Norm al (applies to non-numeric results) [facility]) Platelet Count, Automated 251 10 150-450 Normal (applies to non-numeric results) [facility], ) Neutrophils % 60.7 % 36.0-66.0 Normal (applies to non-numeric re sults) [facility], ) Lymph % 29.4 % 24.0-44.0 Normal (applies to non-numeric resul ts) [facility] Routt % 7.8 % 2.0-8.0 Normal (applies to non-numeric resul ts) [facility], ) Baso % 0.4 % 0.0-1.0 Normal (applies to non-numeric resul ts) [facility] Eos % 1.2 % 0.0-3.0 Normal (applies to non-numeric resul ts) [facility], ) Immature Granulocyte % 0.5 % 0-3.0 Normal (applies to non-n umeric results) [facility] ([facility], ) Nucleated Red Blood Cell % 0.0 % 0-0 Normal (applies to n on-numeric results) [facility] ([facility]) Neutrophils # 5.1 10 1.5-8.5 Normal (applies to non-numeric re sults) [facility] ([facility]) Lymph # 2.4 10 1.5-5.0 Normal (applies to non-numeric resul ts) [facility] ([facility]) Eos # 0.1 10 0.0-0.5 Normal (applies to non-numeric resul ts) [facility] ([facility]) Routt # 0.7 10 0.0-0.8 Normal (applies to non-numeric resul ts) [facility] ([facility]) Baso # 0.0 10 0.0-0.2 Normal (applies to non-numeric resul ts) [facility] 01/22/21 (ThuJan 22) 11:33 AM BABAK [place] Ordered by PCP. ID Date Data Source [id number] 01/15/2021 01:52:00 PM EDT [facility]) Name Value Range Interpretation Code Description Data Jessica rce(s) Supporting Document(s) Hemoglobin A1c 6.4 % Normal (applies to non-numeric r esults) [facility] ([facility]) <content>REFERENCE RANGES:</content><br/ ><content></content>
<content><=5.6% NORMAL</content>
<content>5.7-6.4% SUGGESTS IMPAIRED GLUCOSE METABOLISM/PREDIABETIC</content>
<content>>= 6.5% ABNORMAL</content>
<content></content> Estimated Average Glucose 137 mg/dL 60-110 Above high normal [facility] ([facility]) 01/22/21 (ThuJan 22) 11:33 AM BABAK C KAYLIEBOIS Ordered by PCP. ID Date Data Source [id number] 01/03/2021 07:15:00 AM EDT [facility] ([facility]) Name Value Range Interpretation Code Description Data Jessica rce(s) Supporting Document(s) Fats Neutral Laboratory test result Normal (applies to non -numeric results) [facility] ([facility]) <content>Normal (<60 Droplets/HPF)</cont ent>
<content>This test was developed and its performance characteristics</content>
<content>determined by [facility]. It has not been cleared or</content>
<content>approved by the Food and Drug Administration.</content>
<content></content> Fats Total Laboratory test result Normal (applies to non-n umeric results) [facility] <content>Normal (<100 Droplets/HPF)</con tent>
<content>This test was developed and its performance characteristics</content>
<content>determined by [facility]. It has not been cleared or</content>
<content>approved by the Food and Drug Administration.</content>
<content></content> ID Date Data Source [id number] [facility] Name Value Range Interpretation Code Description Data Jessica rce(s) Supporting Document(s) Elastase.pancreatic [Mass/mass] in Stool Laboratory test result Normal (applies to non-numeric results) [facility] ([facility] ) <content>Result Units: ug Elast./g</cont ent>
<content>Severe Pancreatic Insufficiency: <100</content>
<content>Moderate Pancreatic Insufficiency: 100 - 200</content>
<content>Normal: >200</content>
<content></content> Calprotectin [Mass/mass] in Stool 139 ug/g 0-120 Above high no rmal [facility] ([facility]) <content>Concentration Interpretatio n Follow-Up</content>
<content><16 - 50 ug/g Normal None</content>
<content>>50 -120 ug/g Borderline Re-evaluate in 4-6 weeks</content>
<content>>120 ug/g Abnormal Repeat as clinically</content>
<content>indicated</content>
<content>Performed at: - [facility]</content>
<content>[address], [place] [id number]</content>
<content>Com Writer: Jalyn Leija MD, Phone: [phone]</content>
<content>Performed at: - [facility]</content>
<content>[address] [place] [id number]</content>
<content>Com Writer: Zack Virk MD, Phone: [phone]</content>
<content></content> ID Date Data Source [id number] 01/03/2021 07:15:00 AM EDT [facility] ([facility], ) Name Value Range Interpretation Code Description Data Jessica rce(s) Supporting Document(s) Gastrointestinal (GI) Panel Laboratory test result [facility] ) This Gastrointestinal PCR Panel detects the following bacteria, parasites and viruses: [...] infection. NEGATIVE by MULTIPLEXED NUCLEIC ACID PCR ID Date Data Source [id number] 01/01/2021 04:37:00 PM EDT [facility]) Name Value Range Interpretation Code Description Data Jessica rce(s) Supporting Document(s) Tissue transglutaminase IgA Ab [Units/volume] in Serum Labor atory test result 0-3 Normal (applies to non-numeric results) [facility]) Negative 0 - 3 Weak Positive 4 - 10 Positive >10 . Tissue Transglutaminase (tTG) has been identified as the endomysial antigen. Studies have demonstr- ated that endomysial IgA antibodies have over 99% specificity for gluten sensitive enteropathy. Performed at: RN - [facility] [address] [id number] Com Writer: Jalyn Leija MD, Phone: [phone] IgA [Mass/volume] in Serum or Plasma 293.0 mg/dL 70-400 Normal (applies to non- numeric results) [facility] ([facility]) 01/22/21 (ThuJan 22) 11:25 AM BABAK C HARLEBOIS Celiac marker is normal. ID Date Data Source [id number] 01/01/2021 04:37:00 PM EDT [facility]) Name Value Range Interpretation Code Description Data Jessica rce(s) Supporting Document(s) Thyroid Stimulating Hormone 0.950 uIU/ML 0.358-3.740 Norm al (applies to non- numeric results) [facility]) Free T4 1.14 ng/dL 0.76-1.46 Normal (applies to non-numeric resul ts) [facility]) 01/22/21 (ThuJan 22) 11:23 AM BABAK C HARLEBOIS Thyroid function is normal. ID Date Data Source [id number] 11/19/2020 09:47:00 AM EDT [facility] [address] [place] [address] PHONE: [phone] FAX: [phone] Name .................. : YAN BOWEN Acct Number.................. : [id number] ROOM. ................. : MR Number ................... : [id number] Stay type ............. : O/P Discharge Date......... ... : 11/15/20 Admit Date ......... : 11/15/20 Admit Phys .................... : HIMA Date of ....... : 1970 Family Phys ................... : MANDA SWANSON Phone .................. : [phone] Age ................................ : 50 Film# .................. .:[id number] Sex ................................. : M Unsigned transcriptions are preliminary reports and do not represent a medical or legal document INJECTION FOR SHOULDER ARTHRO [id number] COMPLETE:11/15/20 11:33 42767 Reason for Exam: IMPINGEMENT SYNDROME OF RT SHOULDER SHOULDER 1 VIEW RT [id number] COMPLETE:11/15/20 11:34 96009 Reason for Exam: IMPINGEMENT SYNDROME OF RT SHOULDER FLUOROSCOPIC EXAMINATION OF THE RIGHT SHOULDER FOR ARTHROGRAM, 11/15/20: FINDINGS: Electronic Scale Subassembler films shows degenerative changes. Three images were obtained. Fluoro time was 3 seconds. PROCEDURE: The benefits and risks of the examination were discussed with the patient. The patient has given informed consent for the procedure. A time out was performed confirming the right shoulder is the proper shoulder for today's examination. The skin surface was marked using fluoroscopic guidance. The skin was prepped and dressed in normal sterile fashion. Superficial and deep Lidocaine administration was performed with a 25-gauge needle. A 22- gauge spinal needle was then placed and advanced under fluoroscopic guidance. The needle was passed into the joint space at which time iodinated contrast was administered to confirm proper placement. Approximately 5 cc of iodinated contrast was administered. Once the proper placement was confirmed, approximately 7 cc of 1:200 Gadolinium solution was administered. The needle was then removed. The skin was cleansed and bandaged. No complications were experienced during the procedure. Page 1 of 2 [place] [address] PHONE: [phone] FAX: [phone] Name .................. : YAN BOWEN Acct Number.................. : [id number] ROOM. ................. : Number ................... : [id number] Stay type ............. : O/P Discharge Date......... ... : 11/15/20 Admit Date ......... : 11/15/20 Admit Phys .................... : HIMA Date of ....... : 1970 Family Phys ................... : MANDA SWANSON Phone .................. : [phone] Age ................................ : 50 Film# .................. .:[id number] Sex ................................. : M Unsigned transcriptions are preliminary reports and do not represent a medical or legal document INJECTION FOR SHOULDER ARTHRO [id number] COMPLETE:11/15/20 11:33 [id number] Reason for Exam: IMPINGEMENT SYNDROME OF RT SHOULDER SHOULDER 1 VIEW RT [id number] COMPLETE:11/15/20 11:34 [id number] Reason for Exam: IMPINGEMENT SYNDROME OF RT SHOULDER Examination dictated by FERNANDO Siddiqui. Examination was reviewed with Braeden Santos MD, radiologist at the time of this dictation. Electronically Reviewed and Signed By BRAEDEN SANTOS MD , 11/19/20 09:47, [facility] Transcribe Initials: SSR, Transcribe Date: 11/15/20 13:30, Dictation Date: Copy for: HIMA Pathak via fax Copy for: [address] [place] [address] REC Page 2 of 2 Name Value Range Interpretation Code Description Data Jessica rce(s) Supporting Document(s) ID Date Data Source [id number] 11/19/2020 09:47:00 [place] [address] PHONE: [phone] FAX: [phone] Name .................. : YAN BOWEN Acct Number.................. : [id number] ROOM. ................. : MR Number ................... : [id number] Stay type ............. : O/P Discharge Date......... ... : 11/15/20 Admit Date ......... : 11/15/20 Admit Phys .................... : HIMA Date of ....... : 1970 Family Phys ................... : MANDA SWANSON Phone .................. : [phone] Age ................................ : 50 Film# .................. .:[id number] Sex ................................. : M Unsigned transcriptions are preliminary reports and do not represent a medical or legal document INJECTION FOR SHOULDER ARTHRO [id number] COMPLETE:11/15/20 11:33 12412 Reason for Exam: IMPINGEMENT SYNDROME OF RT SHOULDER SHOULDER 1 VIEW RT [id number] COMPLETE:11/15/20 11:34 [id number] Reason for Exam: IMPINGEMENT SYNDROME OF RT SHOULDER FLUOROSCOPIC EXAMINATION OF THE RIGHT SHOULDER FOR ARTHROGRAM, 11/15/20: FINDINGS: Electronic Scale Subassembler films shows degenerative changes. Three images were obtained. Fluoro time was 3 seconds. PROCEDURE: The benefits and risks of the examination were discussed with the patient. The patient has given informed consent for the procedure. A time out was performed confirming the right shoulder is the proper shoulder for today's examination. The skin surface was marked using fluoroscopic guidance. The skin was prepped and dressed in normal sterile fashion. Superficial and deep Lidocaine administration was performed with a 25-gauge needle. A 22- gauge spinal needle was then placed and advanced under fluoroscopic guidance. The needle was passed into the joint space at which time iodinated contrast was administered to confirm proper placement. Approximately 5 cc of iodinated contrast was administered. Once the proper placement was confirmed, approximately 7 cc of 1:200 Gadolinium solution was administered. The needle was then removed. The skin was cleansed and bandaged. No complications were experienced during the procedure. Page 1 of 2 [facility] [address] [place] [address] PHONE: [phone] FAX: [phone] Name .................. : YAN BOWEN Acct Number.................. : [id number] ROOM. ................. : MR Number ................... : [id number] Stay type ............. : O/P Discharge Date......... ... : 11/15/20 Admit Date ......... : 11/15/20 Admit Phys .................... : HIMA Date of ....... : 1970 Family Phys ................... : MANDA SWANSON Phone .................. : [phone] Age ................................ : 50 Film# .................. .:[id number] Sex ................................. : M Unsigned transcriptions are preliminary reports and do not represent a medical or legal document INJECTION FOR SHOULDER ARTHRO [id number] COMPLETE:11/15/20 11:33 [id number] Reason for Exam: IMPINGEMENT SYNDROME OF RT SHOULDER SHOULDER 1 [address] [place] [id number] COMPLETE:11/15/20 11:34 [id number] Reason for Exam: IMPINGEMENT SYNDROME OF RT SHOULDER Examination dictated by FERNANDO Siddiqui. Examination was reviewed with Braeden Santos MD, radiologist at the time of this dictation. Electronically Reviewed and Signed By BRAEDEN SANTOS MD , 11/19/20 09:47, [facility] Transcribe Initials: SSR, Transcribe Date: 11/15/20 13:30, Dictation Date: Copy for: HIMA Pathak via fax Copy for: 710 MED REC Page 2 of 2 Name Value Range Interpretation Code Description Data Jessica rce(s) Supporting Document(s) ID Date Data Source H PYLORI SERUM QUANT IGM 09/03/2020 12:00:00 AM EDT eCW1 ([facility]) Name Value Range Interpretation Code Description Data Jessica rce(s) Supporting Document(s) <9.0 0.0-8.9 H PYLORI SERUM QUANT IGM eCW1 ([facility]) ID Date Data Source LIPASE 09/03/2020 12:00:00 AM EDT eCW1 ([facility]) Name Value Range Interpretation Code Description Data Jessica rce(s) Supporting Document(s) [phone] LIPASE eCW1 [facility] ID Date Data Source Comprehensive Metabolic Profile (CMP) 09/03/2020 12:00:00 AM EDT eCW1 ([facility]) Name Value Range Interpretation Code Description Data Jessica rce(s) Supporting Document(s) 15 7-18 BLOOD UREA NITROGEN eCW1 ([facility]) 0.81 0.70-1.30 CREATININE FOR GFR eCW1 ([facility]) 109 70-100 GLUCOSE, FASTING eCW1 ([facility]) 140 136-145 SODIUM LEVEL eCW1 (Formerly [facility]) > 60.0 >56 GLOMERULAR FILTRATION RATE eCW 1 ([facility]) 105 98-107 CHLORIDE LEVEL eCW1 ([facility]) 4.4 3.5-5.1 POTASSIUM SERUM eCW1 ([facility]) 32 21-32 CARBON DIOXIDE LEVEL eCW1 ([facility]) 9.4 8.5-10.1 CALCIUM LEVEL eCW1 ([facility]) 44 12-78 ALT/SGPT eCW1 ([facility] 17 7-37 AST/SGOT eCW1 ([facility]) 68 45-117 ALKALINE PHOSPHATASE eCW1 ([facility]) 7.5 6.4-8.2 TOTAL PROTEIN eCW1 ([facility]) 0.8 0.2-1.0 BILIRUBIN,TOTAL eCW1 ([facility]) 1.3 ALBUMIN/GLOBULIN RATIO eCW1 ([facility]) 4.3 3.2-5.2 ALBUMIN eCW1 ([facility]) ID Date Data Source [id number] 07/16/2020 11:52:00 AM EDT MEDENT ([facility] ) Name Value Range Interpretation Code Description Data Jessica rce(s) Supporting Document(s) Covid Rapid Testing Laboratory test result MEDENT ([facility] ) ID Date Data Source [id number] 07/16/2020 12:00:00 AM EDT [facility] Name Value Range Interpretation Code Description Data Jessica rce(s) Supporting Document(s) Covid Rapid Testing Negative [facility] This lab was ordered by [facility] and re ported by [facility]. ID Date Data Source [id number] 07/13/2020 12:07:00 PM EDT MEDENT ([facility] ) Name Value Range Interpretation Code Description Data Jessica rce(s) Supporting Document(s) Laboratory test finding (navigational concept) Laboratory test result MEDENT ([facility] ) ID Date Data Source [id number] 03/21/2020 12:00:00 AM EST [facility]la KING Patient Name: RUCHI HEREDIA [facility] Date of : 1970[address] Date of Exam: 03/21/2020EDGAR Montalvo [id number]#: Fax: [phone] EXAM: MRI SHOULDER RIGHT W/O&W/CONTRAST ARTHROGRAMCLINICAL INFORMATION: Impingement syndrome right shoulder.Pre and post contrast 3T MRI of the right shoulder with shoulder MRIarthrography was performed utilizing various sequences. The glenohumeraljoint injection was performed by ELSY Loving.The latest prior for comparison is a non-arthrogram standard right shoulderMRI examination of 02/16/2018.By history, the patient has undergone a shoulder surgical procedure [id number]. I have no operative report to review. Multiple attempts have beenmade at obtaining that report. The latest information in the patient's[employer] power jacket on 04/09/2020 at 9 AM is that the operative notes areunavailable.The pre-injection portion of the examination shows mild and essentiallyunchanged degenerative changes seen involving the acromioclavicular joint.The acromion process is Type III. There is patchy and linear Q1vatikwuormz seen throughout the supraspinatus tendon which has increasedfrom the prior exam, however, there is no evidence of supraspinatus muscleatrophy or musculotendinous retraction. Normal appearing low signal isagain seen throughout the subscapularis, infraspinatus, and teres minortendon s. The biceps tendon resides within the bicipital groove. There isno glenohumeral joint effusion. There is no evidence of significantcoracohumeral or coracoacromial ligamentous thickening. The coracoacromialligament may be mildly thickened, however, the appearance of this isessentially unchanged from the prior exam.The post injection portion of the examination shows irregularity andfraying of the biceps labral complex. Mild irregularity and linearhypersignal is seen in the anterior labrum and particularly inferiorly.The glenohumeral ligaments are intact. None of the injected fluid hasmigrated nagel perior to the supraspinatus tendon.IMPRESSION:1. Labral signal changes and findings as described above. There is bicepslabral complex fraying and evidence of a subtle labral tear.2. 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 There is noevidence of a full thickness supraspinatus tendon tear.3. Other findings as described above.Accredited by the [employer] in MR.Aparna Gonzalez, LORRI/Waldemar you for referring JESSI HEREDIA to our office. Electronically Signed - APARNA GONZALEZ DO 04/09/20 16:21 Name Value Range Interpretation Code Description Data Jessica rce(s) Supporting Document(s) ID Date Data Source [id number] 03/21/2020 12:00:00 AM EST [facility] Layla KING Patient Name: JESSI HEREDIA15[address] [facility] Date of : 1970[facility] [address] Date [facility]am: [facility] [id number] Fax: [phone] EXAM: INJECTION PROCEDURE FOR SHOULDER ARTHROGRAMCLINICAL INFORMATION: Impingement syndrome of the right shoulder. Ruleout rotator cuff tear vs. labral tear.The procedure was performed by Rosy Cardoza [facility], under the directsupervision of Dr. Gonzalez.The benefits and risks including but not limited to pain, infection,bleeding and anaphylaxis were explained to the patient as well as thepossibility of an unsuccessful procedure, and an informed consent wasobtained. Directly prior to the start of the procedure, a formal time-outwas completed.The right glenohumeral joint space was localized using fluoroscopicguidance. The skin was prepped and draped in a sterile fashion.Approximately 5 cc of 1% Lidocaine 10 mg/ml was used as a local anesthetic. Using fluoroscopic guidance, a #22 gauge spinal needle was inserted andadvanced into the right glenohumeral joint space. Approximately 1 cc ofOmnipaque 300 mg/ml was injected to verify placement. 12 cc of a solutioncontaining 20 cc of sterile saline and 0.15 cc of ProHance was injectedinto the joint space. The needle was removed and the patient was taken toMRI for post procedural imaging.The patient tolerated the procedure well and there were no immediatecomplications.Fluoroscopic images are performed with last image hold technology. Theseimages require no additional radiation to acquire.Fluoroscopy time was 14 seconds at 3 pulses/second. This is equal to 3.5seconds continuous fluoroscopy time which is a 75% reduction in radiation.Dictated by Rosy Cardoza, [facility], with Dr. Gonzalez.LORRI Vegas/Waldemar you for referring JESSI HEREDIA to our office. Electronically Signed - APARNA GONZALEZ DO 03/21/20 13:25 Name Value Range Interpretation Code Description Data Jessica rce(s) Supporting Document(s) ID Date Data Source [id number] 03/21/2020 12:00:00 AM EST [facility] Layla KING Patient Name: RUCHI HEREDIA [facility] Date of : 1970[address] Date of Exam: [facility]2020[facility] [id number]#: Fax: [phone] EXAM: INJECTION PROCEDURE FOR SHOULDER ARTHROGRAMCLINICAL INFORMATION: Impingement syndrome of the right shoulder. Ruleout rotator cuff tear vs. labral tear.The procedure was performed by ELSY Loving, under the directsupervision of Dr. Gonzalez.The benefits and risks including but not limited to pain, infection,bleeding and anaphylaxis were explained to the patient as well as thepossibility of an unsuccessful procedure, and an informed consent wasobtained. Directly prior to the start of the procedure, a formal time-outwas completed.The right glenohumeral joint space was localized using fluoroscopicguidance. The skin was prepped and draped in a sterile fashion.Approximately 5 cc of 1% Lidocaine 10 mg/ml was used as a local anesthetic. Using fluoroscopic guidance, a #22 gauge spinal needle was inserted andadvanced into the right glenohumeral joint space. Approximately 1 cc ofOmnipaque 300 mg/ml was injected to verify placement. 12 cc of a solutioncontaining 20 cc of sterile saline and 0.15 cc of ProHance was injectedinto the joint space. The needle was removed and the patient was taken toMRI for post procedural imaging.The patient tolerated the procedure well and there were no immediatecomplications.Fluoroscopic images are performed with last image hold technology. Theseimages require no additional radiation to acquire.Fluoroscopy time was 14 seconds at 3 pulses/second. This is equal to 3.5seconds continuous fluoroscopy time which is a 75% reduction in radiation.Dictated by ELSY Loving, with Dr. Gonzalez.LORRI Vegas/Waldemar you for referring JESSI HEREDIA to our office. Electronically Signed - APARNA GONZALEZ DO 03/21/20 13:25 Name Value Range Interpretation Code Description Data Jessica rce(s) Supporting Document(s) ID Date Data Source VITAMIN D [id number] 03/09/2020 12:00:00 AM EST eCW1 ([facility]) Name Value Range Interpretation Code Description Data Jessica rce(s) Supporting Document(s) 27.7 30.0-100.0 TOTAL 25(OH) VITAMIN D eC W1 ([facility]) ID Date Data Source [id number] 03/09/2020 12:00:00 AM EST eCW1 ([facility]) Name Value Range Interpretation Code Description Data Jessica rce(s) Supporting Document(s) Microalbumin/Creatinine [Mass Ratio] in Urine 55.7 CREATININE, URINE eCW1 ([facility]) Albumin/Creatinine [Mass Ratio] in Urine < 5.0 MALB URINE SIEMENS eCW1 ([facility]) Microalbumin/Creatinine [Ratio] in Urine 8.9 0.0-30.0 DANICA/CREAT RATIO eCW1 ([facility]) ID Date Data Source HEPATITIS B SURFACE ANTIGEN 03/09/2020 12:00:00 AM EST eCW1 ([facility]) Name Value Range Interpretation Code Description Data Jessica rce(s) Supporting Document(s) NEGATIVE NEGATIVE HEPATITIS B SURFACE ANTIG EN eCW1 ([facility]) ID Date Data Source HEPATITIS C ANTIBODY INDEX 03/09/2020 12:00:00 AM EST eCW1 ( [facility]) Name Value Range Interpretation Code Description Data Jessica rce(s) Supporting Document(s) < 0.0 <0.8 HEPATITIS C VIRUS CHOLO IND EX eCW1 ([facility]) ID Date Data Source PTH INTACT 03/09/2020 12:00:00 AM EST eCW1 ([facility]) Name Value Range Interpretation Code Description Data Jessica rce(s) Supporting Document(s) 22.1 18.5-88.0 PTH INTACT eCW1 ([facility]) ID Date Data Source LIPID PANEL (CARDIAC RISK) 03/09/2020 12:00:00 AM EST eCW1 ( [facility]) Name Value Range Interpretation Code Description Data Jessica rce(s) Supporting Document(s) Cholesterol in HDL [Moles/volume] in Serum or Plasma 41 >40 HDL CHOLESTEROL eCW1 ([facility]) Cholesterol [Moles/volume] in Serum or Plasma 177 <200 CHOLESTEROL LEVEL eCW1 ([facility]) Triglyceride [Mass/volume] in Serum or Plasma by calculation 135 <150 TRIGLYCERIDES LEVEL eCW1 ([facility]) Cholesterol in LDL [Mass/volume] in Serum or Plasma by calculation 109 <100 LDL CHOLESTEROL [facility] ([facility]) 136 NON-HDL-C eCW1 ([facility] 4.317 <5 CHOLESTEROL RISK RATIO eCW1 ([facility]) ID Date Data Source MAGNESIUM LEVEL 03/09/2020 12:00:00 AM EST eCW1 ([facility]) Name Value Range Interpretation Code Description Data Jessica rce(s) Supporting Document(s) 2.3 1.8-2.4 MAGNESIUM LEVEL eCW1 ([facility]) ID Date Data Source [id number] 03/09/2020 12:00:00 AM EST eCW1 ([facility]) Name Value Range Interpretation Code Description Data Jessica rce(s) Supporting Document(s) Hemoglobin A1c/Hemoglobin.total in Blood 5.6 HEMOGLOBIN A1c eCW1 ([facility]) ID Date Data Source ERYTHROCYTE SEDIMENTATION RATE 03/09/2020 12:00:00 AM EST eC W1 ([facility]) Name Value Range Interpretation Code Description Data Jessica rce(s) Supporting Document(s) 8 0-15 ERYTHROCYTE SEDIMENTATION RATE eCW1 ([facility]) ID Date Data Source C REACTIVE PROTEIN QUANTITATIV (At [facility]) 03/09/2020 12:00 :00 AM EST eCW1 ([facility]) Name Value Range Interpretation Code Description Data Jessica rce(s) Supporting Document(s) 0.30 0.00-0.30 C REACTIVE PROTEIN QUANTI TATIV eCW1 ([facility]) ID Date Data Source [id number] 02/11/2020 09:00:00 AM EDT [facility] Name Value Range Interpretation Code Description Data Jessica rce(s) Supporting Document(s) SARS coronavirus 2 RNA [facility] This lab was ordered by [facility] and reported by [facility]. Procedure Social History Code Duration Value Status Description Data Source(s ) Smoking 02/13/2021 12:00:00 AM EDT Patient is a former smoker completed Patient is a former smoker MEDENT ([facility]) Smoking 01/11/2021 12:00:00 AM EDT Former Smoker completed Former Smoker eCW1 ([facility]) Smoking 01/11/2021 12:00:00 AM EDT Former Smoker completed Former Smoker eCW1 ([facility]) Smoking 12/23/2020 03:54:46 PM EDT Ex-smoker (finding) complet ed Ex-smoker (finding) MARIBEL ([facility]) Smoking 12/19/2020 09:17:40 PM EDT Ex-smoker (finding) complet ed Ex-smoker (finding) MARIBEL ([facility]) Smoking 09/24/2020 12:00:00 AM EDT Former Smoker completed Former Smoker eCW1 ([facility]) Smoking 09/24/2020 12:00:00 AM EDT Former Smoker completed Former Smoker eCW1 ([facility]) Smoking 09/24/2020 12:00:00 AM EDT Former Smoker completed Former Smoker eCW1 ([facility]) Smoking 09/24/2020 12:00:00 AM EDT Former Smoker completed Former Smoker eCW1 ([facility]) Smoking 09/03/2020 12:00:00 AM EDT Former Smoker completed Former Smoker eCW1 ([facility]) Smoking 09/03/2020 12:00:00 AM EDT Former Smoker completed Former Smoker eCW1 ([facility]) Smoking 09/03/2020 12:00:00 AM EDT Former Smoker completed Former Smoker eCW1 ([facility]) Smoking 09/03/2020 12:00:00 AM EDT Former Smoker completed Former Smoker eCW1 ([facility]) Smoking 08/24/2020 12:00:00 AM EDT Former Smoker completed Former Smoker eCW1 ([facility]) Smoking 08/24/2020 12:00:00 AM EDT Former Smoker completed Former Smoker eCW1 ([facility]) Smoking 07/05/2020 12:00:00 AM EDT Former Smoker completed Former Smoker eCW1 ([facility]) Smoking 07/05/2020 12:00:00 AM EDT Former Smoker completed Former Smoker eCW1 ([facility]) Smoking 07/05/2020 12:00:00 AM EDT Former Smoker completed Former Smoker eCW1 ([facility]) Smoking 07/05/2020 12:00:00 AM EDT Former Smoker completed Former Smoker eCW1 ([facility]) Smoking 07/05/2020 12:00:00 AM EDT Former Smoker completed Former Smoker eCW1 ([facility]) Smoking 07/05/2020 12:00:00 AM EDT Former Smoker completed Former Smoker eCW1 ([facility]) Smoking 06/19/2020 12:00:00 AM EST Patient is a former smoker completed Patient is a former smoker MEDENT ([facility]) Smoking 04/19/2020 08:17:18 AM EST Ex-smoker (finding) complet ed Ex-smoker (finding) MARIBEL ([facility]) Smoking 03/21/2020 08:36:10 AM EST Ex-smoker (finding) complet ed Ex-smoker (finding) MARIBEL ([facility]) Smoking 03/09/2020 12:00:00 AM EST Former Smoker completed Former Smoker eCW1 ([facility]) Smoking 03/09/2020 12:00:00 AM EST Former Smoker completed Former Smoker eCW1 ([facility]) Smoking 03/09/2020 12:00:00 AM EST Former Smoker completed Former Smoker eCW1 ([facility]) Smoking 03/09/2020 12:00:00 AM EST Former Smoker completed Former Smoker eCW1 ([facility]) Smoking 03/09/2020 12:00:00 AM EST Former Smoker completed Former Smoker eCW1 ([facility]) Smoking 03/09/2020 12:00:00 AM EST Former Smoker completed Former Smoker eCW1 ([facility]) Smoking 03/09/2020 12:00:00 AM EST Former Smoker completed Former Smoker eCW1 ([facility]) Smoking 03/09/2020 12:00:00 AM EST Former Smoker completed Former Smoker eCW1 ([facility]) Smoking 02/17/2020 02:41:30 PM EDT Ex-smoker (finding) complet ed Ex-smoker (finding) MARIBEL ([facility]) Vital Signs ID Date Data Source UNK Name Value Range Interpretation Code Description Data Source(s) Body mass index (BMI) [Ratio] 31.0 kg/m2 31.0 k g/m2 MEDENT ([facility], [facility]) Respiratory rate 14 /min 14 /min MEDENT ( [facility], [facility]) Oxygen saturation in Arterial blood by Pulse oximetry 95 % 95 % MEDENT ([facility], [facility]) Body temperature 98.1 [degF] 98.1 [degF] MEDENT ([facility], [facility]) Body weight 210.00 [lb_av] 210.00 [lb_av] MEDEN T ([facility], [facility]) Body height 69 [in_i] 69 [in_i] MEDENT ([facility], [facility]) 5'9" Systolic blood pressure 156 mm[Hg] 156 mm[Hg] M EDENT ([facility], [facility]) Diastolic blood pressure 95 mm[Hg] 95 mm[Hg] MEDENT ([facility], [facility]) Heart rate 86 /min 86 /min MEDENT ([facility], [facility]) Body weight 214 [lb_av] 214 [lb_av] eCW1 ([facility]) Body weight 97.07 kg 97.07 kg W1 ([facility]) Body mass index (BMI) [Ratio] 30.70 kg/m2 30.70 kg/m2 [facility] ([facility]) Body height 70 [in_i] 70 [in_i] eCW1 ([facility]) Systolic blood pressure 132 mm[Hg] 132 mm[Hg] e CW1 ([facility]) Diastolic blood pressure 80 mm[Hg] 80 mm[Hg] eCW1 ([facility]) Heart rate 78 /min 78 /min eCW1 ([facility]) Respiratory rate 20 /min 20 /min eCW1 ([facility]) Body temperature 97.7 [degF] 97.7 [degF] eCW1 ( [facility]) Body mass index (BMI) [Ratio] 30.1 kg/m2 30.1 k g/m2 MEDENT ([facility] [place] body weight 166 [lb_av] 166 [lb_av] MEDEN T ([facility]) Body weight 210.00 [lb_av] 210.00 [lb_av] MEDEN T ([facility]) Systolic blood pressure 144 mm[Hg] 144 mm[Hg] M EDENT ([facility]) Diastolic blood pressure 92 mm[Hg] 92 mm[Hg] MEDENT ([facility]) Body height 70 [in_i] 70 [in_i] [facility] ([facility]) 5'10" Body weight 95.256 kg 95.256 kg [facility] ([facility]) Body surface area Derived from formula 2.13 m2 2.13 m2 [facility] ([facility]) Body weight 205 [lb_av] 205 [lb_av] eCW1 ([facility]) Body height 70 [in_i] 70 [in_i] eCW1 ([facility]) Body mass index (BMI) [Ratio] 29.41 kg/m2 29.41 kg/m2 eCW1 ([facility]) Heart rate 84 /min 84 /min eCW1 ([facility]) Respiratory rate 20 /min 20 /min eCW1 ([facility]) Body temperature 97.8 [degF] 97.8 [degF] eCW1 ( [facility]) Systolic blood pressure 128 mm[Hg] 128 mm[Hg] e CW1 ([facility]) Diastolic blood pressure 72 mm[Hg] 72 mm[Hg] eCW1 ([facility]) Body weight 198.4 [lb_av] 198.4 [lb_av] eCW1 ([facility]) Heart rate 88 /min 88 /min eCW1 ([facility]) Respiratory rate 20 /min 20 /min eCW1 ([facility]) Body temperature 97.8 [degF] 97.8 [degF] eCW1 ( [facility]) Systolic blood pressure 124 mm[Hg] 124 mm[Hg] e CW1 ([facility]) Body height 70 [in_i] 70 [in_i] eCW1 ([facility]) Body mass index (BMI) [Ratio] 28.46 kg/m2 28.46 kg/m2 eCW1 ([facility]) Diastolic blood pressure 72 mm[Hg] 72 mm[Hg] eCW1 ([facility]) Body temperature 97.7 [degF] 97.7 [degF] [facility] ([facility] [facility] Body weight 210.0 [lb_av] 210.0 [lb_av] eCW1 ([facility]) Body height 70 [in_i] 70 [in_i] eCW1 ([facility]) Body mass index (BMI) [Ratio] 30.13 kg/m2 30.13 kg/m2 eCW1 ([facility]) Heart rate 94 /min 94 /min eCW1 ([facility]) Respiratory rate 20 /min 20 /min eCW1 ([facility]) Body temperature 97.8 [degF] 97.8 [degF] eCW1 ( [facility]) Systolic blood pressure 122 mm[Hg] 122 mm[Hg] e CW1 ([facility]) Diastolic blood pressure 70 mm[Hg] 70 mm[Hg] eCW1 ([facility]) Body temperature 96.4 [degF] 96.4 [degF] MEDENT ([facility]) Body weight 212.2 [lb_av] 212.2 [lb_av] eCW1 ([facility]) Body height 70 [in_i] 70 [in_i] eCW1 ([facility]) Body mass index (BMI) [Ratio] 30.44 kg/m2 30.44 kg/m2 eCW1 ([facility]) Heart rate 92 /min 92 /min eCW1 ([facility]) Respiratory rate 20 /min 20 /min eCW1 ([facility]) Body temperature 97.9 [degF] 97.9 [degF] eCW1 ( [facility]) Systolic blood pressure 130 mm[Hg] 130 mm[Hg] e CW1 ([facility]) Diastolic blood pressure 80 mm[Hg] 80 mm[Hg] eCW1 ([facility]) Body weight 212.50 [lb_av] 212.50 [lb_av] MEDEN T ([facility]) Body height 66.5 [in_i] 66.5 [in_i] MEDENT ([facility]) 5'6.50" Body mass index (BMI) [Ratio] 33.8 kg/m2 33.8 k g/m2 MEDENT ([facility]) Body temperature 97.7 [degF] 97.7 [degF] MEDENT ([facility]) Body height 96.5 [in_i] 96.5 [in_i] MEDENT ([facility]) 8'0.50" Body weight 212.50 [lb_av] 212.50 [lb_av] MEDEN T ([facility]) Body mass index (BMI) [Ratio] 16.0 kg/m2 16.0 k g/m2 MEDENT ([facility]) Body temperature 96.9 [degF] 96.9 [degF] MEDENT ([facility]) Body weight 212 [lb_av] 212 [lb_av] eCW1 ([facility]) Body height 70 [in_i] 70 [in_i] eCW1 ([facility]) Body mass index (BMI) [Ratio] 30.42 kg/m2 30.42 kg/m2 eCW1 ([facility]) Heart rate 76 /min 76 /min eCW1 ([facility]) Respiratory rate 18 /min 18 /min eCW1 ([facility]) Body temperature 98.4 [degF] 98.4 [degF] eCW1 ( [facility]) Systolic blood pressure 122 mm[Hg] 122 mm[Hg] e CW1 ([facility]) Diastolic blood pressure 70 mm[Hg] 70 mm[Hg] eCW1 ([facility]) Body temperature 98.6 [degF] 98.6 [degF] MEDENT ([facility]) Body height 67 [in_i] 67 [in_i] MEDENT ([facility]) 5'7" Body weight 210.00 [lb_av] 210.00 [lb_av] MEDEN T ([facility]) Body mass index (BMI) [Ratio] 32.9 kg/m2 32.9 k g/m2 MEDENT ([facility]) Patient Treatment Plan of Care Planned Activity Planned Date Details Description Data Source (s) Sucralfate 1000 MG Oral Tablet [Carafate] 09/03/2020 12:00:00 AM ED T eCW1 ([facility]) Sucralfate 1000 MG Oral Tablet [Carafate] 09/03/2020 12:00:00 AM ED T eCW1 ([facility]) Sucralfate 1000 MG Oral Tablet [Carafate] 09/03/2020 12:00:00 AM ED T eCW1 ([facility]) Sucralfate 1000 MG Oral Tablet [Carafate] 09/03/2020 12:00:00 AM ED T eCW1 ([facility]) Rybelsus 14 MG 07/05/2020 12:00:00 AM EDT eCW1 ([facility]) Rybelsus 14 MG 07/05/2020 12:00:00 AM EDT eCW1 ([facility]) Rybelsus 14 MG 07/05/2020 12:00:00 AM EDT eCW1 ([facility]) Rybelsus 7 MG 07/05/2020 12:00:00 AM EDT eCW1 ([facility]) Rybelsus 7 MG 07/05/2020 12:00:00 AM EDT eCW1 ([facility]) Rybelsus 7 MG 07/05/2020 12:00:00 AM EDT eCW1 ([facility]) prednisolone acetate 10 MG/ML Ophthalmic Suspension 02/24/20 20 12:00:00 AM EST MARIBEL (Cristian Young MD [facility]) moxifloxacin 5 MG/ML Ophthalmic Solution 02/08/2020 12:00:00 AM EDT MARIBEL (Cristian Young MD [facility])
--- NOTE | 2021-03-01 08:48 | ROOR ---
Patient Name: Bill Heredia Procedure Date: 03/01/2021 8:37 AM Date of : 1970 Age: 50 Room: [facility] Gender: Male Note Status: Finalized Procedure: Upper GI endoscopy Indications: Epigastric abdominal pain Providers: Cristian Molina MD Referring MD: Raymond Du MD Requesting Provider: Medicines: Monitored Anesthesia Care Complications: No immediate complications. Procedure: Pre-Anesthesia Assessment: - The heart rate, respiratory rate, oxygen saturations, blood pressure, adequacy of pulmonary ventilation, and response to care were monitored throughout the procedure. The Endoscope was introduced through the mouth, and advanced to the second part of duodenum. The upper GI endoscopy was accomplished without difficulty. The patient tolerated the procedure well. Findings: The esophagus was normal. The stomach was normal. The examined duodenum was normal. Impression: - Normal esophagus. - Normal stomach. - Normal examined duodenum. - No specimens collected. Recommendation: - Continue present medications. - Follow an antireflux regimen. Procedure Code(s): --- Professional --- 10597, Esophagogastroduodenoscopy, flexible, transoral; diagnostic, including collection of specimen(s) by brushing or washing, when performed (separate procedure) Diagnosis Code(s): --- Professional --- R10.13, Epigastric pain CPT copyright 2019 [employer]. All rights reserved. The codes documented in this report are preliminary and upon derrickman helper review may be revised to meet current compliance requirements. Cristian Molina MD Cristian Molina MD 03/01/2021 8:47:47 AM Electronically signed by Cristian Molina MD Number of Addenda: 0 Note Initiated On: 03/01/2021 8:37 AM Estimated Blood Loss: Estimated blood loss: none.
--- NOTE | 2021-03-01 09:11 | ROOR ---
Patient Name: Bill Heredia Procedure Date: 03/01/2021 8:37 AM Date of : 1970 Age: 50 Room: [facility] Gender: Male Note Status: Finalized Procedure: Colonoscopy Indications: Change in bowel habits Providers: Cristian Molina MD Referring MD: Raymond Du MD Requesting Provider: Medicines: Monitored Anesthesia Care Complications: No immediate complications. Procedure: Pre-Anesthesia Assessment: - The heart rate, respiratory rate, oxygen saturations, blood pressure, adequacy of pulmonary ventilation, and response to care were monitored throughout the procedure. The Colonoscope was introduced through the anus and advanced to 10 cm into the ileum. The colonoscopy was performed without difficulty. The patient tolerated the procedure well. The quality of the bowel preparation was good. Findings: The perianal and digital rectal examinations were normal. Two sessile polyps were found in the rectum. The polyps were diminutive in size. These polyps were removed with a jumbo cold forceps. Resection and retrieval were complete. Small Internal Hemorrhoids. The terminal ileum contained a single erosion. Biopsies were taken with a cold forceps for histology (acute vs chronic). The exam was otherwise without abnormality on direct and retroflexion views. Biopsies for histology were taken with a cold forceps from the entire colon for evaluation of microscopic colitis. Impression: - Two diminutive polyps in the rectum, removed with a jumbo cold forceps. Resected and retrieved. - Small Internal Hemorrhoids. - A single tiny erosion in the terminal ileum of dubious significance. Biopsied. - The colon examination was otherwise normal on direct and retroflexion views. - (Irritable bowel suspected, biopsies to r/o microscopic colitis) Recommendation: - Telephone endoscopist for pathology results in 2 weeks. - Use fiber, for example Citrucel, Fibercon, Konsyl or Metamucil. Procedure Code(s): --- Professional --- 80263, Colonoscopy, flexible; with biopsy, single or multiple Diagnosis Code(s): --- Professional --- R19.4, Change in bowel habit K63.3, Ulcer of intestine K62.1, Rectal polyp CPT copyright 2019 [employer]. All rights reserved. The codes documented in this report are preliminary and upon manufacturing plant manager review may be revised to meet current compliance requirements. Cristian Molina MD Cristian Molina MD 03/01/2021 9:10:53 AM Electronically signed by Cristian Molina MD Number of Addenda: 0 Note Initiated On: 03/01/2021 8:37 AM Estimated Blood Loss: Estimated blood loss: none.
[2021-03-01] MEDS ORDERED: LIDOCAINE 2% 100MG/5ML SDV (FOR ANES.) As Ordered ONE (09:21)
[2021-03-01] MEDS ORDERED: propofoL 500 MG/50 ML VIAL As Ordered ONE (09:21)
[2021-03-01] MEDS ORDERED: fentaNYL 100 MCG/2 ML INJECTION (J3010) As Ordered ONE (09:21)
[2021-03-01 09:25] VITALS: BP 130/79
== END 2021-03-01 10:25 | disposition home or self-care (01) ==
LOC: M OPP 07:39
PROVIDERS: ATTEND Internal Medicine Gastroenterology
DX: R10.13 Epigastric pain (principal); R19.4 Change in bowel habit; K63.3 Ulcer of intestine; K62.1 Rectal polyp; K64.0 First degree hemorrhoids; E10.9 Type 1 diabetes mellitus without complications; I10 Essential (primary) hypertension; Z79.899 Other long term (current) drug therapy
CPT/HCPCS: 43235; 45380; 88305; J3010

== ENCOUNTER → 2021-03-30 | Outpatient (CLI) | payer BC, OTHER ==
[~2021-03-30] MED LIST changes: +COSE1INJ3 SC; -NS 1,000 ML IV ONE
== END ==
LOC: M LABSMTC 10:04
PROVIDERS: ATTEND Anesthesiology
DX: Z01.812 Encounter for preprocedural laboratory examination (principal); Z20.822 Contact with and (suspected) exposure to COVID-19

== ENCOUNTER 2021-04-04 06:33 | Day surgery (SDC) | payer BC, OTHER ==
[~2021-04-04] VITALS: Ht 175.3 cm; Wt 97.2 kg
[~2021-04-04 06:33] MED LIST changes: +TETRACAINE 0.5% OPHTH SOLN 4ML OD SCH
[2021-04-04] MEDS ORDERED: LIDOCAINE 1% SDV 5ML VIAL As Ordered ONE (06:40)
[2021-04-04] MEDS ORDERED: TOBRADEX OPHTH SUSP 2.5 ML As Ordered ONE (06:40)
[2021-04-04] MEDS ORDERED: DUOVISC (0.50ML VISCOAT/0.85ML PROVISC) OPHTH KIT As Ordered ONE (06:40)
[2021-04-04] MEDS ORDERED: LR 1,000 ML IV SCH (07:00)
[2021-04-04] MEDS ORDERED: TRUL10IN SQ (07:01)
[2021-04-04] MEDS: PHENYLEPHRINE 2.5% OPHTH SOL 2ML OD SCH ×3 (07:12→07:31)
[2021-04-04] MEDS: FLURBIPROFEN 0.03% OPHTH SOLN 2.5 ML OD SCH ×3 (07:12→07:31)
[2021-04-04] MEDS: CYCLOPENTOLATE 1% OPHTH SOLN 2 ML BTL OD SCH ×3 (07:12→07:31)
[2021-04-04] MEDS ORDERED: MIDAZOLAM INJ 2MG/2ML VIAL (J2250 PER 1MG) As Ordered ONE (07:28)
[2021-04-04] MEDS ORDERED: fentaNYL 100 MCG/2 ML INJECTION (J3010) As Ordered ONE (07:28)
[2021-04-04] MEDS ORDERED: PHENYLEPHRINE HCL 10 % OPHTH. SOL 5ML OD ONE (07:50)
[2021-04-04 09:36] VITALS: BP 131/81
--- NOTE | 2021-04-04 15:47 | ROOPDOC ---
[facility] Report Of Operation Report of Operation DATE OF PROCEDURE: 04/04/21 PREPROCEDURE DIAGNOSES: Cataract right eye. POSTPROCEDURE DIAGNOSES: Same. PROCEDURE PERFORMED: Cataract extraction with intraocular lens implantation right eye. SURGEON: Cortez Manning MD HOME THEATER EXPERIENCE EXPERT: None ANESTHESIA: Local ESTIMATED BLOOD LOSS: None. COMPLICATIONS: None. SPECIMENS REMOVED: None DESCRIPTION OF PROCEDURE: The patient was brought to the operating room and prepped and draped in the usual sterile fashion and an eyelid speculum was inserted in the right eye. A paracentesis was made and the anterior chamber was inflated with non-preserved lidocaine. This was followed by injection of Viscoat. A groove was made in the temporal clear cornea which was tunneled forward with the crescent blade and the anterior chamber was entered with a 2.75 keratome. The cystotome was used to make an incision in the center of the capsule and a continuous curvilinear capsulorhexis was created. The lens was hydrodissected until it was found to rotate freely within the capsular bag. Phacoemulsification was then used to remove the lens in its entirety. Irrigation and aspiration were used to remove residual cortical material. The anterior chamber and capsular bag were reinflated with Provisc and a 19.0 diopter SN60AT lens was injected into the capsular bag using the [place] injector. The lens was dialed into place using the [place] hook. Irrigation and aspiration were used to remove residual viscoelastic. The wound was stromally hydrated until it was found to be watertight and the eye was at an appropriate pressure. The eyelid speculum was removed from the eye and Maxitrol drops were placed over the right eye. The patient was transferred to the recovery room in stable condition and will follow up later today. The total CDE was 10.35 CORTEZ MANNING MD Apr 04, 2021 15:47
== END 2021-04-04 09:40 | disposition home or self-care (01) ==
LOC: M SDC 06:33
PROVIDERS: ATTEND Ophthalmology
DX: H25.9 Unspecified age-related cataract (principal); I10 Essential (primary) hypertension; E11.9 Type 2 diabetes mellitus without complications; I47.1 Supraventricular tachycardia; R19.7 Diarrhea, unspecified; R12 Heartburn; M45.9 Ankylosing spondylitis of unspecified sites in spine; Z87.891 Personal history of nicotine dependence; Z79.899 Other long term (current) drug therapy; Z79.84 Long term (current) use of oral hypoglycemic drugs
CPT/HCPCS: 66984; J2250; J3010; V2632

== ENCOUNTER → 2021-06-12 | Outpatient (CLI) | payer BC, OTHER ==
[~2021-06-12] MED LIST changes: -TETRACAINE 0.5% OPHTH SOLN 4ML OD SCH; +TRUL10IN SQ
[2021-06-12 13:40] LABS: BASO % 0.4 % (0.0-1.0); EOS # 0.1 10^3/uL (0.0-0.5); EOS % 0.8 % (0.0-3.0); HEMATOCRIT 45.8 % (42.0-52.0); HEMOGLOBIN 15.9 g/dl (13.5-17.5); LYMPH # 1.9 10^3/uL (1.5-5.0); LYMPH % 25.8 % (24.0-44.0); MEAN CORPUSCULAR HEMOGLOBIN 31.4 pg (27.0-33.0); MEAN CORPUSCULAR HGB CONC 34.7 g/dl (32.0-36.5); MEAN CORPUSCULAR VOLUME 90.3 fl (80.0-96.0); MONO # 0.5 10^3/uL (0.0-0.8); MONO % 6.7 % (2.0-8.0); NEUTROPHILS # 4.8 10^3/uL (1.5-8.5); NEUTROPHILS % 65.9 % (36.0-66.0); PLATELET COUNT, AUTOMATED 274 10^3/uL (150-450); RED BLOOD COUNT 5.07 10^6/uL (4.30-6.10); WHITE BLOOD COUNT 7.3 10^3/uL (4.0-10.0)
[2021-06-12 13:49] LABS: INR 0.84; PROTHROMBIN TIME 11.9 SECONDS (12.7-14.5)
[2021-06-12 14:14] LABS: ALT/SGPT 67 U/L (12-78); BILIRUBIN,TOTAL 0.6 MG/DL (0.2-1.0); BLOOD UREA NITROGEN 17 MG/DL (7-18); CARBON DIOXIDE LEVEL 26 MEQ/L (21-32); CHLORIDE LEVEL 105 MEQ/L (98-107); CHOLESTEROL LEVEL 199 MG/DL (<200); CHOLESTEROL RISK RATIO 5.102 (<5); CREATININE FOR GFR 0.86 MG/DL (0.70-1.30); GLOMERULAR FILTRATION RATE > 60.0 (>56); GLUCOSE, FASTING 113 MG/DL (70-100); HDL CHOLESTEROL 39 MG/DL (>40); LDL CHOLESTEROL 139 MG/DL (<100); NON-HDL-C 160 MG/DL; NT-PRO BNP 15 PG/ML (<125); POTASSIUM SERUM 4.2 MEQ/L (3.5-5.1); PTH INTACT 31.1 PG/ML (18.5-88.0); SODIUM LEVEL 137 MEQ/L (136-145); TOTAL 25(OH) VITAMIN D 38.4 NG/ML (30.0-100.0); TOTAL PROTEIN 7.3 GM/DL (6.4-8.2); TRIGLYCERIDES LEVEL 106 MG/DL (<150)
[2021-06-12 14:19] LABS: ERYTHROCYTE SEDIMENTATION RATE 7 mm/hr (0-20)
[2021-06-12 15:14] LABS: HEMOGLOBIN A1c 6.1 %
[2021-06-13 08:14] LABS: APOLIPOPROTEIN B/A-1 RATIO 0.9 ratio (0.0-0.7)
== END ==
LOC: M PLAIMG 09:24
PROVIDERS: ATTEND Family Medicine
DX: R93.7 Abnormal findings on diagnostic imaging of other parts of musculoskeletal system (principal); M45.9 Ankylosing spondylitis of unspecified sites in spine

== ENCOUNTER → 2022-05-14 | Outpatient (CLI) | payer BC, OTHER ==
[2022-05-14 11:47] LABS: BASO % 0.5 % (0.0-1.0); EOS # 0.1 10^3/uL (0.0-0.5); EOS % 1.4 % (0.0-3.0); HEMATOCRIT 45.3 % (42.0-52.0); HEMOGLOBIN 15.2 g/dl (13.5-17.5); LYMPH # 2.1 10^3/uL (1.5-5.0); MEAN CORPUSCULAR HEMOGLOBIN 31.1 pg (27.0-33.0); MEAN CORPUSCULAR HGB CONC 33.6 g/dl (32.0-36.5); MEAN CORPUSCULAR VOLUME 92.6 fl (80.0-96.0); MONO # 0.6 10^3/uL (0.0-0.8); MONO % 7.2 % (2.0-8.0); NEUTROPHILS # 4.8 10^3/uL (1.5-8.5); NEUTROPHILS % 63.6 % (36.0-66.0); PLATELET COUNT, AUTOMATED 266 10^3/uL (150-450); RED BLOOD COUNT 4.89 10^6/uL (4.30-6.10); WHITE BLOOD COUNT 7.6 10^3/uL (4.0-10.0)
[2022-05-14 12:09] LABS: CREATININE, URINE 185.8 MG/DL
[2022-05-14 12:10] LABS: MAU/CREAT RATIO 2.6 MCG/MG (0.0-30.0)
[2022-05-14 12:15] LABS: CHOLESTEROL LEVEL 138 MG/DL (<200); CHOLESTEROL RISK RATIO 3.55 (<5); CPK CREATINE PHOSPHOKINASE 167 U/L (46-171); ERYTHROCYTE SEDIMENTATION RATE 11 mm/hr (0-20); FERRITIN 68.4 NG/ML (10.5-307.3); HDL CHOLESTEROL 38.8 MG/DL (>40); LDL CHOLESTEROL 83.8 MG/DL (<100); NON-HDL-C 99 MG/DL; THYROID STIMULATING HORMONE 1.062 uIU/ML (0.55-4.78); TRIGLYCERIDES LEVEL 77 MG/DL (<150)
[2022-05-14 12:16] LABS: FREE T4 0.98 NG/DL (0.89-1.76)
[2022-05-14 12:18] LABS: C REACTIVE PROTEIN QUANTITATIV < 0.40 MG/DL (<1.0)
[2022-05-14 13:21] LABS: HEMOGLOBIN A1c 6.5 % (4.0-6.0)
== END ==
LOC: M PLALAB 08:19
PROVIDERS: ATTEND Family Medicine
DX: E78.5 Hyperlipidemia, unspecified (principal)

== ENCOUNTER → 2022-05-27 | Outpatient (REF) | payer BC, OTHER | LOC: M SFHCDERM 14:18 | PROVIDERS: ATTEND Nurse Practitioner Family | DX: I78.1 Nevus, non-neoplastic (principal) ==

== ENCOUNTER → 2022-06-26 | Outpatient (REF) | payer BC, OTHER | LOC: M LAB REF 16:00 | PROVIDERS: ATTEND Surgery | DX: D23.5 Other benign neoplasm of skin of trunk (principal) ==

== ENCOUNTER 2022-07-05 18:23 | Emergency (ER) | payer OTHER, BC ==
[~2022-07-05] VITALS: Ht 175.3 cm; Wt 100.0 kg
[2022-07-05] MEDS ORDERED: TELM1TAB33 (18:38)
[2022-07-05] MEDS ORDERED: CYCL-707 (18:38)
[2022-07-05] MEDS ORDERED: TIZA2TA (18:38)
[2022-07-05] MEDS ORDERED: ACET-683 PO (18:38)
[2022-07-05] MEDS ORDERED: KETO10TAB (18:38)
[2022-07-05 23:13] VITALS: BP 164/88
[2022-07-06] MEDS ORDERED: NAPR-837 PO (00:14)
[2022-07-06] MEDS ORDERED: NAPROXEN 250 MG TAB PO ONE (00:15)
[2022-07-06] MEDS ORDERED: LIDOCAINE 5% (LIDODERM) PATCH TD ONE (00:15)
[2022-07-06] MEDS ORDERED: LIDO5DIS41 TD (00:23)
== END 2022-07-06 01:04 | disposition home or self-care (01) ==
LOC: M ED 18:23
DX: M25.511 Pain in right shoulder (principal); X50.0XXA Overexertion from strenuous movement or load, initial encounter; Y99.0 Civilian activity done for income or pay; I25.10 Atherosclerotic heart disease of native coronary artery without angina pectoris; E11.9 Type 2 diabetes mellitus without complications; Z79.84 Long term (current) use of oral hypoglycemic drugs; Z79.899 Other long term (current) drug therapy

== ENCOUNTER → 2022-11-24 | Outpatient (CLI) | payer OTHER, BC ==
[~2022-11-24] MED LIST changes: +ACET-683 PO; +CYCL-707; +KETO10TAB; +LIDO5DIS41 TD; +NAPR-837 PO; +TELM1TAB33; +TIZA2TA
[2022-11-24 09:11] LABS: BLOOD UREA NITROGEN 15 MG/DL (9-23); CALCIUM LEVEL 8.4 MG/DL (8.5-10.1); CARBON DIOXIDE LEVEL 30 MMOL/L (20-31); CHLORIDE LEVEL 106 MMOL/L (98-107); CREATININE FOR GFR 0.67 MG/DL (0.70-1.30); GLOMERULAR FILTRATION RATE > 60.0 (>56); GLUCOSE, FASTING 161 MG/DL (60-100); POTASSIUM SERUM 4.3 MMOL/L (3.5-5.1); SODIUM LEVEL 139 MMOL/L (136-145)
== END ==
LOC: M EKG 08:08
PROVIDERS: ATTEND Orthopaedic Surgery
DX: Z01.818 Encounter for other preprocedural examination (principal)

== ENCOUNTER → 2022-11-24 | Outpatient (CLI) | payer BC, OTHER ==
[2022-11-24 09:06] LABS: HEMOGLOBIN A1c 7.8 % (4.0-6.0)
[2022-11-24 09:11] LABS: C REACTIVE PROTEIN QUANTITATIV < 0.40 MG/DL (<1.0)
[2022-11-24 09:12] LABS: ALBUMIN 3.7 G/DL (3.2-5.2); ALKALINE PHOSPHATASE 86 U/L (46-116); ALT/SGPT 54 U/L (7.0-40); AST/SGOT 20 U/L (<34); BILIRUBIN,TOTAL 0.4 MG/DL (0.3-1.2); BLOOD UREA NITROGEN 14 MG/DL (9-23); CALCIUM LEVEL 8.8 MG/DL (8.5-10.1); CARBON DIOXIDE LEVEL 26 MMOL/L (20-31); CHLORIDE LEVEL 106 MMOL/L (98-107); CREATININE FOR GFR 0.62 MG/DL (0.70-1.30); GLOMERULAR FILTRATION RATE > 60.0 (>56); GLUCOSE, FASTING 167 MG/DL (60-100); POTASSIUM SERUM 4.3 MMOL/L (3.5-5.1); PTH INTACT 44.5 PG/ML (18.5-88.0); SODIUM LEVEL 141 MMOL/L (136-145); TOTAL PROTEIN 6.7 G/DL (5.7-8.2)
[2022-11-24 09:14] LABS: TOTAL 25(OH) VITAMIN D 59.8 NG/ML (20.0-100.0)
== END ==
LOC: M LAB 08:12
PROVIDERS: ATTEND Family Medicine
DX: K76.0 Fatty (change of) liver, not elsewhere classified (principal)

== ENCOUNTER → 2023-07-31 | Outpatient (REF) | payer BC ==
[~2023-07-31] MED LIST changes: +CELE0.09 PO; -CELE1CAP9 PO; +[UNRECOGNIZED DRUG - CODE] TOP; -[UNRECOGNIZED DRUG - CODE] TOP
== END ==
LOC: M SFHCPLAZ 18:08
PROVIDERS: ATTEND Family Medicine
DX: E11.9 Type 2 diabetes mellitus without complications (principal); M45.9 Ankylosing spondylitis of unspecified sites in spine; E55.9 Vitamin D deficiency, unspecified

== ENCOUNTER → 2023-12-14 | Outpatient (CLI) | payer BC ==
[2023-12-14 11:14] LABS: C REACTIVE PROTEIN QUANTITATIV < 0.40 MG/DL (<1.0)
[2023-12-14 11:15] LABS: HEMOGLOBIN A1c 7.4 % (4.0-6.0)
[2023-12-14 11:16] LABS: ALBUMIN 3.9 G/DL (3.2-5.2); ALKALINE PHOSPHATASE 90 U/L (46-116); ALT/SGPT 46 U/L (7.0-40); AST/SGOT 17 U/L (<34); BILIRUBIN,TOTAL 0.5 MG/DL (0.3-1.2); BLOOD UREA NITROGEN 18 MG/DL (9-23); CALCIUM LEVEL 8.6 MG/DL (8.5-10.1); CARBON DIOXIDE LEVEL 27 MMOL/L (20-31); CHLORIDE LEVEL 106 MMOL/L (98-107); CREATININE FOR GFR 0.64 MG/DL (0.70-1.30); GLOMERULAR FILTRATION RATE > 60.0 (>56); GLUCOSE, FASTING 175 MG/DL (60-100); POTASSIUM SERUM 4.2 MMOL/L (3.5-5.1); PTH INTACT 33.2 PG/ML (18.5-88.0); SODIUM LEVEL 137 MMOL/L (136-145); TOTAL PROTEIN 7.1 G/DL (5.7-8.2)
[2023-12-14 11:18] LABS: TOTAL 25(OH) VITAMIN D 48.3 NG/ML (20.0-100.0)
== END ==
LOC: M PLALAB 08:46
PROVIDERS: ATTEND Family Medicine
DX: E11.9 Type 2 diabetes mellitus without complications (principal)

== ENCOUNTER → 2023-12-15 | Outpatient (REF) | payer BC | LOC: M SFHCPLAZ 11:50 | PROVIDERS: ATTEND Family Medicine | DX: E11.9 Type 2 diabetes mellitus without complications (principal); M45.9 Ankylosing spondylitis of unspecified sites in spine; E55.9 Vitamin D deficiency, unspecified; Z53.9 Procedure and treatment not carried out, unspecified reason ==

== ENCOUNTER → 2024-04-15 | Outpatient (CLI) | payer BC ==
[2024-04-15 14:44] LABS: HEMOGLOBIN A1c 5.6 % (4.0-6.0)
[2024-04-15 14:53] LABS: C REACTIVE PROTEIN QUANTITATIV < 0.50 MG/DL (<1.0)
[2024-04-15 14:57] LABS: ALBUMIN 3.8 G/DL (3.2-5.2); ALKALINE PHOSPHATASE 79 U/L (40-129); ALT/SGPT 45 U/L (7.0-40); AST/SGOT 21 U/L (<34); BILIRUBIN,TOTAL 0.5 MG/DL (0.3-1.2); BLOOD UREA NITROGEN 12 MG/DL (9-23); CALCIUM LEVEL 9.2 MG/DL (8.5-10.1); CARBON DIOXIDE LEVEL 29 MMOL/L (20-31); CHLORIDE LEVEL 106 MMOL/L (98-107); CHOLESTEROL LEVEL 135 MG/DL (<200); CHOLESTEROL RISK RATIO 3.16 (<5); GLOMERULAR FILTRATION RATE > 60.0 (>56); GLUCOSE, FASTING 119 MG/DL (60-100); HDL CHOLESTEROL 42.7 MG/DL (>40); LDL CHOLESTEROL 78.5 MG/DL (<100); NON-HDL-C 92.3 MG/DL; POTASSIUM SERUM 4.4 MMOL/L (3.5-5.1); SODIUM LEVEL 141 MMOL/L (136-145); TOTAL PROTEIN 7.4 G/DL (5.7-8.2); TRIGLYCERIDES LEVEL 69 MG/DL (<150)
[2024-04-15 15:01] LABS: TOTAL 25(OH) VITAMIN D 35.4 NG/ML (20.0-100.0)
[2024-04-15 15:13] LABS: HEPATITIS B SURFACE ANTIGEN NEGATIVE (NEGATIVE)
[2024-04-15 15:26] LABS: HIV 1&2 SCREEN NEGATIVE (NEGATIVE)
[2024-04-15 15:34] LABS: HEPATITIS C VIRUS ABY INDEX < 0.02 INDEX (<0.8)
[2024-04-16 17:24] LABS: PTH INTACT 26.5 PG/ML (18.5-88.0)
== END ==
LOC: M PLALAB 09:51
PROVIDERS: ATTEND Family Medicine
DX: E11.9 Type 2 diabetes mellitus without complications (principal); M45.9 Ankylosing spondylitis of unspecified sites in spine; E55.9 Vitamin D deficiency, unspecified

== ENCOUNTER → 2024-07-05 | Outpatient (CLI) | payer BC ==
[2024-07-05 14:06] LABS: APPEARANCE, URINE CLEAR (CLEAR); BACTERIA, URINE AUTO NEGATIVE (NEGATIVE); BILIRUBIN, URINE AUTO NEGATIVE (NEGATIVE); BLOOD, URINE BLOOD NEGATIVE (NEGATIVE); COLOR, URINE YELLOW (YELLOW); GLUCOSE, URINE (UA) AUTO NEGATIVE (NEGATIVE); KETONE, URINE AUTO NEGATIVE (NEGATIVE); LEUKOCYTE ESTERASE, URINE AUTO NEGATIVE (NEGATIVE); MUCUS, URINE SMALL (NEGATIVE); NITRITE, URINE AUTO NEGATIVE (NEGATIVE); PROTEIN, URINE AUTO 1+ mg/dL (NEGATIVE); RBC, URINE AUTO 0 /HPF (0-3); SPECIFIC GRAVITY URINE AUTO 1.026 (1.002-1.035); SQUAMOUS EPITHELIAL CELL UR AU 0 /HPF (0-6); WBC, URINE AUTO 1 /HPF (0-3)
[2024-07-05 14:19] LABS: C REACTIVE PROTEIN QUANTITATIV < 0.50 MG/DL (<1.0)
[2024-07-05 14:20] LABS: ALKALINE PHOSPHATASE 71 U/L (40-129); ALT/SGPT 37 U/L (7.0-40); AST/SGOT 18 U/L (<34); BILIRUBIN,TOTAL 0.6 MG/DL (0.3-1.2); BLOOD UREA NITROGEN 13 MG/DL (9-23); CALCIUM LEVEL 9.1 MG/DL (8.5-10.1); CARBON DIOXIDE LEVEL 30 MMOL/L (20-31); CHLORIDE LEVEL 105 MMOL/L (98-107); CREATININE FOR GFR 0.69 MG/DL (0.70-1.30); FREE T4 1.23 NG/DL (0.89-1.76); GLOMERULAR FILTRATION RATE > 60.0 (>56); GLUCOSE, FASTING 113 MG/DL (60-100); POTASSIUM SERUM 4.9 MMOL/L (3.5-5.1); PSA SCREENING 0.47 NG/ML (< 4.00); SODIUM LEVEL 142 MMOL/L (136-145); THYROID PEROXIDASE ANTIBODY < 28.0 U/ML (<60.0); THYROID STIMULATING HORMONE 1.005 uIU/ML (0.55-4.78); TOTAL PROTEIN 7.3 G/DL (5.7-8.2)
[2024-07-05 14:22] LABS: TOTAL 25(OH) VITAMIN D 39.7 NG/ML (20.0-100.0)
[2024-07-05 14:35] LABS: HEMOGLOBIN A1c 5.6 % (4.0-6.0)
[2024-07-05 14:37] LABS: THYROGLOBULIN ANTIBODY < 15.0 U/ML (<60.0)
[2024-07-05 14:40] LABS: MAU/CREAT RATIO 2.8 MCG/MG (0.0-30.0)
== END ==
LOC: M PLALAB 09:53
PROVIDERS: ATTEND Family Medicine
DX: E11.9 Type 2 diabetes mellitus without complications (principal)

== ENCOUNTER → 2025-01-17 | Outpatient (CLI) | payer BC ==
[~2025-01-17] MED LIST changes: +LIDO1ADH93 TD; -LIDO5DIS41 TD
[2025-01-17 14:05] LABS: ALT/SGPT 27 U/L (7.0-40); AST/SGOT 14 U/L (<34); C REACTIVE PROTEIN QUANTITATIV 1.67 MG/DL (<1.0); CALCIUM LEVEL 8.8 MG/DL (8.5-10.1); CARBON DIOXIDE LEVEL 28 MMOL/L (20-31); CHLORIDE LEVEL 105 MMOL/L (98-107); CHOLESTEROL LEVEL 122 MG/DL (<200); CHOLESTEROL RISK RATIO 2.79 (<5); CREATININE FOR GFR 0.68 MG/DL (0.70-1.30); GLOMERULAR FILTRATION RATE > 90.0 (>56); LDL CHOLESTEROL 60.9 MG/DL (<100); NON-HDL-C 78.3 MG/DL; POTASSIUM SERUM 5.1 MMOL/L (3.5-5.1); SODIUM LEVEL 138 MMOL/L (136-145); TRIGLYCERIDES LEVEL 87 MG/DL (<150)
[2025-01-17 14:07] LABS: PTH INTACT 25.4 PG/ML (18.5-88.0); TOTAL 25(OH) VITAMIN D 36.3 NG/ML (20.0-100.0)
[2025-01-17 14:34] LABS: CREATININE, URINE 135.0 MG/DL; ESTIMATED AVERAGE GLUCOSE 117.0 MG/DL (60-110); MALB URINE SIEMENS 4.0 MG/L; MAU/CREAT RATIO 2.9 MCG/MG (0.0-30.0)
[2025-01-17 14:38] LABS: HEPATITIS C VIRUS ABY INDEX 0.07 INDEX (<0.8)
== END ==
LOC: M PLAIMG 09:37
PROVIDERS: ATTEND Family Medicine
DX: M47.27 Other spondylosis with radiculopathy, lumbosacral region (principal); M45.9 Ankylosing spondylitis of unspecified sites in spine; E11.9 Type 2 diabetes mellitus without complications; E55.9 Vitamin D deficiency, unspecified; K76.0 Fatty (change of) liver, not elsewhere classified

== ENCOUNTER → 2025-01-23 | Outpatient (CLI) | payer BC ==
[~2025-01-23] MED LIST changes: +ACET650T3 PO; +DORZ2SOL5 OU; +DULO1CAP5 PO; +LEVO1TAB39; +ROSU10TA61 PO; +TAMS1CAP17 PO; -TELM1TAB33; +TELM1TAB33 PO; +TIRZ12.5 SQ; +TRES1INJ SQ
[2025-01-23 14:19] LABS: APPEARANCE, URINE CLEAR (CLEAR); BACTERIA, URINE AUTO NEGATIVE (NEGATIVE); BILIRUBIN, URINE AUTO NEGATIVE (NEGATIVE); BLOOD, URINE BLOOD NEGATIVE (NEGATIVE); GLUCOSE, URINE (UA) AUTO NEGATIVE (NEGATIVE); KETONE, URINE AUTO NEGATIVE (NEGATIVE); LEUKOCYTE ESTERASE, URINE AUTO NEGATIVE (NEGATIVE); MUCUS, URINE SMALL (NEGATIVE); NITRITE, URINE AUTO NEGATIVE (NEGATIVE); PROTEIN, URINE AUTO NEGATIVE (NEGATIVE); RBC, URINE AUTO 0 /HPF (0-3); SPECIFIC GRAVITY URINE AUTO 1.016 (1.002-1.035); SQUAMOUS EPITHELIAL CELL UR AU 0 /HPF (0-6); UROBILINOGEN, URINE AUTO 0.2 mg/dL (0.0-2.0); WBC, URINE AUTO 0 /HPF (0-3)
[2025-01-23 14:24] LABS: BASO # 0.0 10^3/uL (0.0-0.2); BASO % 0.3 % (0.0-1.0); EOS # 0.1 10^3/uL (0.0-0.5); EOS % 1.4 % (0.0-3.0); LYMPH # 2.0 10^3/uL (1.5-5.0); LYMPH % 19.7 % (24.0-44.0); MONO # 0.8 10^3/uL (0.0-0.8); MONO % 7.7 % (2.0-8.0); NEUTROPHILS # 7.2 10^3/uL (1.5-8.5); NEUTROPHILS % 70.5 % (36.0-66.0); PLATELET COUNT, AUTOMATED 268 10^3/uL (150-450)
[2025-01-23 14:28] LABS: ERYTHROCYTE SEDIMENTATION RATE 29 mm/hr (0-20)
[2025-01-23 14:48] LABS: ALT/SGPT 22 U/L (7.0-40); AST/SGOT 16 U/L (<34); C REACTIVE PROTEIN QUANTITATIV 2.91 MG/DL (<1.0); CALCIUM LEVEL 9.0 MG/DL (8.5-10.1); CARBON DIOXIDE LEVEL 31 MMOL/L (20-31); CHLORIDE LEVEL 102 MMOL/L (98-107); CREATININE FOR GFR 0.64 MG/DL (0.70-1.30); GLOMERULAR FILTRATION RATE > 90.0 (>56); POTASSIUM SERUM 4.4 MMOL/L (3.5-5.1); PSA SCREENING 0.41 NG/ML (< 4.00); SODIUM LEVEL 139 MMOL/L (136-145)
[2025-01-23 16:02] LABS: HEPATITIS C VIRUS ABY INDEX < 0.02 INDEX (<0.8)
== END ==
LOC: M LAB 13:23
PROVIDERS: ATTEND Family Medicine
DX: M47.27 Other spondylosis with radiculopathy, lumbosacral region (principal); N41.1 Chronic prostatitis; K76.0 Fatty (change of) liver, not elsewhere classified
CPT/HCPCS: 36415; 80053; 81001; 83605; 85025; 85652; 86140; 86480; 86803; 87086; G0103

== ENCOUNTER 2025-01-24 11:14 | Inpatient (IN) | payer BC ==
[~2025-01-24] VITALS: Ht 175.3 cm; Wt 92.9 kg
[~2025-01-24 11:14] MED LIST changes: -ACET650T3 PO; -DORZ2SOL5 OU; -DULO1CAP5 PO; -LEVO1TAB39; -ROSU10TA61 PO; -TAMS1CAP17 PO; -TIRZ12.5 SQ; -TRES1INJ SQ
[2025-01-24 13:48] LABS: APPEARANCE, URINE CLEAR (CLEAR); BACTERIA, URINE AUTO NEGATIVE (NEGATIVE); BILIRUBIN, URINE AUTO NEGATIVE (NEGATIVE); BLOOD, URINE BLOOD NEGATIVE (NEGATIVE); GLUCOSE, URINE (UA) AUTO 3+ mg/dL (NEGATIVE); KETONE, URINE AUTO NEGATIVE (NEGATIVE); LEUKOCYTE ESTERASE, URINE AUTO NEGATIVE (NEGATIVE); MUCUS, URINE SMALL (NEGATIVE); NITRITE, URINE AUTO NEGATIVE (NEGATIVE); PROTEIN, URINE AUTO NEGATIVE (NEGATIVE); RBC, URINE AUTO 0 /HPF (0-3); SPECIFIC GRAVITY URINE AUTO 1.013 (1.002-1.035); SQUAMOUS EPITHELIAL CELL UR AU 0 /HPF (0-6); UROBILINOGEN, URINE AUTO 0.2 mg/dL (0.0-2.0); WBC, URINE AUTO 0 /HPF (0-3)
[2025-01-24 13:50] LABS: BASO # 0.0 10^3/uL (0.0-0.2); BASO % 0.3 % (0.0-1.0); EOS # 0.1 10^3/uL (0.0-0.5); EOS % 0.8 % (0.0-3.0); LYMPH # 1.5 10^3/uL (1.5-5.0); LYMPH % 13.1 % (24.0-44.0); MONO # 0.7 10^3/uL (0.0-0.8); MONO % 5.9 % (2.0-8.0); NEUTROPHILS # 9.3 10^3/uL (1.5-8.5); NEUTROPHILS % 79.5 % (36.0-66.0); PLATELET COUNT, AUTOMATED 283 10^3/uL (150-450)
[2025-01-24 13:58] LABS: ERYTHROCYTE SEDIMENTATION RATE 30 mm/hr (0-20)
[2025-01-24 14:05] LABS: INR 0.91
[2025-01-24 14:24] LABS: C REACTIVE PROTEIN QUANTITATIV 3.55 MG/DL (<1.0)
[2025-01-24 14:25] LABS: CPK CREATINE PHOSPHOKINASE 34 U/L (46-171); RHEUMATOID FACTOR QUANT < 3.5 IU/ML (<14)
[2025-01-24 14:59] LABS: ALT/SGPT 24 U/L (7.0-40); AST/SGOT 16 U/L (<34); CALCIUM LEVEL 9.5 MG/DL (8.5-10.1); CARBON DIOXIDE LEVEL 30 MMOL/L (20-31); CHLORIDE LEVEL 102 MMOL/L (98-107); CK-MB VALUE MASS < 1.0 NG/ML (<3.6); CREATININE FOR GFR 0.62 MG/DL (0.70-1.30); GLOMERULAR FILTRATION RATE > 90.0 (>56); POTASSIUM SERUM 4.4 MMOL/L (3.5-5.1); SODIUM LEVEL 141 MMOL/L (136-145)
[2025-01-24] MEDS ORDERED: HYDROMORPHONE HCL 0.5 MG/0.5 ML SYRINGE IV PRN (18:05)
[2025-01-24] MEDS ORDERED: MORPHINE 4 MG/ML 1 ML VIAL IV PRN (18:05)
[2025-01-24] MEDS ORDERED: ISOVUE-370 76% 100 ML VIAL As Ordered ONE (18:09)
[2025-01-24] MEDS ORDERED: ACET650T3 PO (18:40)
[2025-01-24] MEDS ORDERED: TRES1INJ SQ (18:43)
[2025-01-24] MEDS ORDERED: LEVO1TAB39 (18:43)
[2025-01-24] MEDS ORDERED: ROSU10TA61 PO (18:43)
[2025-01-24] MEDS ORDERED: DORZ2SOL5 OU (18:43)
[2025-01-24] MEDS ORDERED: TIRZ12.5 SQ (18:43)
[2025-01-24] MEDS ORDERED: TAMS1CAP17 PO (18:43)
[2025-01-24] MEDS ORDERED: DULO1CAP5 PO (18:43)
[2025-01-24] MEDS ORDERED: HOME MED LIST COMPLETE! XX SCH (18:45)
[2025-01-24] MEDS: ONDANSETRON 4MG 2ML VIAL IV ONE (19:01)
[2025-01-24] MEDS: HYDROMORPHONE HCL 0.5 MG/0.5 ML SYRINGE IV PRN (20:36)
[2025-01-24] MEDS ORDERED: PROHANCE 279.3MG/ML 5ML VIAL As Ordered ONE (21:04)
[2025-01-24] MEDS ORDERED: PROHANCE 279.3MG/ML 15ML VIAL As Ordered ONE (21:04)
[2025-01-24 22:13] VITALS: BP 134/79; TEMP 98; O2SAT 95
[2025-01-24] MEDS: MORPHINE 4 MG/ML 1 ML VIAL IV ONE (22:22)
[2025-01-24] MEDS: cefTRIAXone SOD 1 GM in DEXTROSE 5% (D5W) ADV/MINI-BAG 50 ML IV SCH (22:42)
[2025-01-24] MEDS: TAMSULOSIN 0.4 MG CAP PO SCH (22:42)
[2025-01-24] MEDS: TELMISARTAN 20 MG TAB PO SCH (23:07)
[2025-01-24 23:42] VITALS: BP 130/78; TEMP 97.8; O2SAT 98
[2025-01-25 03:13] VITALS: BP 126/73; TEMP 98; O2SAT 97
[2025-01-25 07:51] LABS: PLATELET COUNT, AUTOMATED 281 10^3/uL (150-450)
[2025-01-25 08:19] LABS: CALCIUM LEVEL 9.2 MG/DL (8.5-10.1); CARBON DIOXIDE LEVEL 31 MMOL/L (20-31); CHLORIDE LEVEL 100 MMOL/L (98-107); CREATININE FOR GFR 0.75 MG/DL (0.70-1.30); GLOMERULAR FILTRATION RATE > 90.0 (>56); POTASSIUM SERUM 4.4 MMOL/L (3.5-5.1); SODIUM LEVEL 142 MMOL/L (136-145)
[2025-01-25] MEDS: ACETAMINOPHEN 650 MG ER TAB PO PRN (08:21)
[2025-01-25] MEDS: ROSUVASTATIN 10 MG TAB PO SCH (08:22)
[2025-01-25] MEDS: PANTOPRAZOLE 40MG TAB PO SCH (08:22)
[2025-01-25] MEDS: ENOXAPARIN 40 MG/0.4 ML SYRINGE (J1650 PER 10MG) SC SCH (08:23)
[2025-01-25] MEDS ORDERED: GLUCAGON INJ 1 MG VIAL SC PRN (08:45)
[2025-01-25] MEDS ORDERED: GLUCOSE 4 GM CHEW PO PRN (08:45)
[2025-01-25] MEDS ORDERED: DEXTROSE 50% 50 ML SYRINGE IV PRN (08:45)
[2025-01-25] MEDS: INSULIN LISPRO (NovoLOG) PER UNIT SC SCH ×2 (09:21→20:08)
[2025-01-25] MEDS: DORZOLAMIDE/TIMOLOL 10 ML OPHTHALMIC SOLN OU SCH (09:22)
[2025-01-25] MEDS: PERCOCET 5MG/325MG TAB PO PRN (09:22)
[2025-01-25 15:23] VITALS: BP 130/79; TEMP 97.7; O2SAT 95
[2025-01-25 22:30] VITALS: BP 114/70; TEMP 97.9; O2SAT 95
[2025-01-26 04:13] VITALS: BP 113/70; TEMP 98.1; O2SAT 32; O2SAT 92
[2025-01-26 06:01] LABS: BASO # 0.0 10^3/uL (0.0-0.2); BASO % 0.3 % (0.0-1.0); EOS # 0.1 10^3/uL (0.0-0.5); EOS % 0.6 % (0.0-3.0); LYMPH # 1.9 10^3/uL (1.5-5.0); LYMPH % 16.4 % (24.0-44.0); MONO # 1.0 10^3/uL (0.0-0.8); MONO % 8.8 % (2.0-8.0); NEUTROPHILS # 8.5 10^3/uL (1.5-8.5); NEUTROPHILS % 73.5 % (36.0-66.0); PLATELET COUNT, AUTOMATED 261 10^3/uL (150-450)
[2025-01-26 06:26] LABS: C REACTIVE PROTEIN QUANTITATIV 3.33 MG/DL (<1.0); CALCIUM LEVEL 8.8 MG/DL (8.5-10.1); CARBON DIOXIDE LEVEL 32 MMOL/L (20-31); CHLORIDE LEVEL 102 MMOL/L (98-107); CREATININE FOR GFR 0.68 MG/DL (0.70-1.30); GLOMERULAR FILTRATION RATE > 90.0 (>56); POTASSIUM SERUM 4.5 MMOL/L (3.5-5.1); SODIUM LEVEL 142 MMOL/L (136-145)
[2025-01-26 11:30] VITALS: BP 109/70; TEMP 97.9; O2SAT 96
[2025-01-26 16:15] VITALS: BP 123/55; TEMP 97.2; O2SAT 98
[2025-01-26 16:20] LABS: APPEARANCE, CSF CLEAR (CLEAR); COLOR, CSF COLORLESS (COLORLESS); CSF TUBE# CELL CNT TUBE 1
[2025-01-26 16:21] LABS: APPEARANCE, CSF CLEAR (CLEAR); COLOR, CSF YELLOW (COLORLESS); CSF TUBE# CELL CNT TUBE 4
[2025-01-26 18:16] LABS: CSF TUBE# TP TUBE 2; TOTAL PROTEIN,CSF 44.9 MG/DL (15-45)
[2025-01-26 18:18] LABS: CSF TUBE# GLU TUBE 2; GLUCOSE CSF 82.0 MG/DL (40-70)
[2025-01-26 19:45] VITALS: BP 129/73; TEMP 98.1; O2SAT 96
[2025-01-26] MEDS: LanTUS (INSULIN GLARGINE INJ) 1 UNITS/0.01 ML SC SCH (20:06)
[2025-01-26] MEDS: PERCOCET 5MG/325MG TAB PO PRN (20:21)
[2025-01-27 03:48] VITALS: BP 104/64; TEMP 97.5; O2SAT 95
[2025-01-27 06:15] VITALS: BP 108/69
[2025-01-27 06:53] LABS: BASO # 0.0 10^3/uL (0.0-0.2); BASO % 0.4 % (0.0-1.0); EOS # 0.1 10^3/uL (0.0-0.5); EOS % 1.1 % (0.0-3.0); LYMPH # 2.1 10^3/uL (1.5-5.0); LYMPH % 25.1 % (24.0-44.0); MONO # 0.7 10^3/uL (0.0-0.8); MONO % 8.8 % (2.0-8.0); NEUTROPHILS # 5.4 10^3/uL (1.5-8.5); NEUTROPHILS % 64.4 % (36.0-66.0); PLATELET COUNT, AUTOMATED 240 10^3/uL (150-450)
[2025-01-27 07:19] LABS: C REACTIVE PROTEIN QUANTITATIV 5.84 MG/DL (<1.0)
[2025-01-27 07:20] LABS: CALCIUM LEVEL 8.8 MG/DL (8.5-10.1); CARBON DIOXIDE LEVEL 32 MMOL/L (20-31); CHLORIDE LEVEL 102 MMOL/L (98-107); CREATININE FOR GFR 0.69 MG/DL (0.70-1.30); GLOMERULAR FILTRATION RATE > 90.0 (>56); POTASSIUM SERUM 4.3 MMOL/L (3.5-5.1); SODIUM LEVEL 142 MMOL/L (136-145)
[2025-01-27 08:11] VITALS: BP 110/69
[2025-01-27 11:45] VITALS: BP 126/72; TEMP 97.9; O2SAT 95
[2025-01-27] MEDS ORDERED: LEVO1TAB39 PO (13:54)
[2025-01-27] MEDS ORDERED: MIRA3350 PO (13:54)
[2025-01-27] MEDS ORDERED: SENN-186 PO (13:54)
[2025-01-27] MEDS ORDERED: OXYC-517 PO (13:54)
[2025-01-27] MEDS ORDERED: AMOX875T2 PO (14:02)
[2025-01-28 14:57] LABS: LYME TOTAL ANTIBODY CIA <= 0.90 Index (<=0.90)
[2025-01-31 20:57] LABS: CSF LYME DISEASE AB IGG NO BANDS DETECTED (NO BANDS); CSF LYME DISEASE AB IGM NO BANDS DETECTED (NO BANDS)
== END 2025-01-27 15:20 | disposition home or self-care (01) | DRG 346 ==
LOC: M ED 11:14 → M ED INP 11:15 → OBSVTOIN 01-25 12:47 → M MSPAV 01-25 15:24
PROVIDERS: ADMIT Internal Medicine; ATTEND Student in an Organized Health Care Education/Training Program
PROC: 009U3ZX Drainage of Spinal Canal, Percutaneous Approach, Diagnostic (ICD-10-PCS; principal; 2025-01-26)
DX: M45.7 Ankylosing spondylitis of lumbosacral region (principal); I47.10 Supraventricular tachycardia, unspecified; I10 Essential (primary) hypertension; N41.0 Acute prostatitis; N40.0 Benign prostatic hyperplasia without lower urinary tract symptoms; H40.9 Unspecified glaucoma; E78.5 Hyperlipidemia, unspecified; E11.9 Type 2 diabetes mellitus without complications; K21.9 Gastro-esophageal reflux disease without esophagitis; M19.90 Unspecified osteoarthritis, unspecified site; M51.370 Other intervertebral disc degeneration, lumbosacral region with discogenic back pain only; M54.2 Cervicalgia; Z79.4 Long term (current) use of insulin; Z79.899 Other long term (current) drug therapy

== ENCOUNTER → 2025-02-02 | Outpatient (REF) | payer BC ==
[~2025-02-02] MED LIST changes: +ACET650T3 PO; +AMOX875T2 PO; +DORZ2SOL5 OU; +DULO1CAP5 PO; +LEVO1TAB39; +LEVO1TAB39 PO; +MIRA3350 PO; +OXYC-517 PO; +ROSU10TA61 PO; +SENN-186 PO; +TAMS1CAP17 PO; +TIRZ12.5 SQ; +TRES1INJ SQ
[2025-02-02 17:38] LABS: PLATELET COUNT, AUTOMATED 340 10^3/uL (150-450)
[2025-02-02 17:50] LABS: ERYTHROCYTE SEDIMENTATION RATE 38 mm/hr (0-20)
[2025-02-02 18:01] LABS: PSA SCREENING 0.47 NG/ML (< 4.00)
[2025-02-02 18:05] LABS: ALT/SGPT 23 U/L (7.0-40); AST/SGOT 14 U/L (<34); C REACTIVE PROTEIN QUANTITATIV 2.86 MG/DL (<1.0); CALCIUM LEVEL 9.4 MG/DL (8.5-10.1); CARBON DIOXIDE LEVEL 28 MMOL/L (20-31); CHLORIDE LEVEL 102 MMOL/L (98-107); CHOLESTEROL LEVEL 116 MG/DL (<200); CHOLESTEROL RISK RATIO 2.74 (<5); CREATININE FOR GFR 0.69 MG/DL (0.70-1.30); GLOMERULAR FILTRATION RATE > 90.0 (>56); LDL CHOLESTEROL 58.4 MG/DL (<100); NON-HDL-C 73.8 MG/DL; POTASSIUM SERUM 4.6 MMOL/L (3.5-5.1); PTH INTACT 12.9 PG/ML (18.5-88.0); SODIUM LEVEL 140 MMOL/L (136-145); TRIGLYCERIDES LEVEL 77 MG/DL (<150)
[2025-02-02 18:06] LABS: FREE T4 1.29 NG/DL (0.89-1.76); TOTAL 25(OH) VITAMIN D 34.8 NG/ML (20.0-100.0)
[2025-02-02 18:30] LABS: HIV 1&2 SCREEN NEGATIVE (NEGATIVE)
[2025-02-02 18:51] LABS: ESTIMATED AVERAGE GLUCOSE 114.0 MG/DL (60-110)
[2025-02-02 19:15] LABS: CREATININE, URINE 148.6 MG/DL; MALB URINE SIEMENS 5.0 MG/L; MAU/CREAT RATIO 3.3 MCG/MG (0.0-30.0)
== END ==
LOC: M SFHCPLAZ 15:51
PROVIDERS: ATTEND Family Medicine
DX: E11.9 Type 2 diabetes mellitus without complications (principal); E55.9 Vitamin D deficiency, unspecified; E78.5 Hyperlipidemia, unspecified; Z12.5 Encounter for screening for malignant neoplasm of prostate; M45.9 Ankylosing spondylitis of unspecified sites in spine
CPT/HCPCS: 80053; 80061; 82043; 82306; 83036; 83970; 84439; 84443; 85027; 85652; 86140; 87389; G0103

== ENCOUNTER → 2025-02-28 | Outpatient (CLI) | payer BC ==
[~2025-02-28] MED LIST changes: -ROSU10TA61 PO; +ROSU10TA90 PO
[2025-02-28 18:22] LABS: C REACTIVE PROTEIN QUANTITATIV < 0.50 MG/DL (<1.0)
[2025-02-28 18:23] LABS: ALT/SGPT 36 U/L (7.0-40); AST/SGOT 11 U/L (<34); CALCIUM LEVEL 8.8 MG/DL (8.5-10.1); CARBON DIOXIDE LEVEL 26 MMOL/L (20-31); CHLORIDE LEVEL 102 MMOL/L (98-107); CREATININE FOR GFR 0.78 MG/DL (0.70-1.30); GLOMERULAR FILTRATION RATE > 90.0 (>56); POTASSIUM SERUM 4.5 MMOL/L (3.5-5.1); SODIUM LEVEL 140 MMOL/L (136-145)
[2025-02-28 18:25] LABS: BASO # 0.0 10^3/uL (0.0-0.2); BASO % 0.2 % (0.0-1.0); EOS # 0.0 10^3/uL (0.0-0.5); EOS % 0.0 % (0.0-3.0); LYMPH # 0.9 10^3/uL (1.5-5.0); LYMPH % 8.8 % (24.0-44.0); MONO # 0.3 10^3/uL (0.0-0.8); MONO % 2.8 % (2.0-8.0); NEUTROPHILS # 9.1 10^3/uL (1.5-8.5); NEUTROPHILS % 87.2 % (36.0-66.0); PLATELET COUNT, AUTOMATED 215 10^3/uL (150-450)
== END ==
LOC: M PLALAB 14:31
PROVIDERS: ATTEND Family Medicine
DX: M45.9 Ankylosing spondylitis of unspecified sites in spine (principal)